=== PATIENT | female | born 1965 | race Caucasian/White ===

== ENCOUNTER → 2020-06-17 15:01 | Outpatient (CLI) | payer OTHER, SELFPAY ==
[2020-06-13 09:56] VITALS: BMI 24.3
--- NOTE | 2020-06-17 15:04 | EKG12_ITS ---
Test Reason : PRE PROC Blood Pressure : / mmHG Vent. Rate : 089 BPM Atrial Rate : 089 BPM P-R Int : 140 ms QRS Dur : 116 ms QT Int : 394 ms P-R-T Axes : 055 -58 045 degrees QTc Int : 479 ms Normal sinus rhythm Right bundle branch block Left anterior fascicular block Bifascicular block Abnormal ECG Confirmed by JERAMIE QUILES, JOVANA ([id number]), editor managing newspaper RAO FRY ([id number]) on 06/21/2020 2:36:47 PM Referred By: Roddy Arellano Confirmed By:JOVANA BOBO MD
== END ==
PROVIDERS: PCP Family Medicine; Referring Provider Surgery; Visit Provider Surgery
DX: R07.9 Chest pain, unspecified (principal)
CPT/HCPCS: 93005

== ENCOUNTER → 2020-06-21 09:46 | Outpatient (CLI) | payer OTHER, SELFPAY ==
[2020-06-13 09:33] VITALS: BMI 27.8
[2020-06-13 09:56] VITALS: BMI 24.3
--- NOTE | 2020-06-21 09:50 | NM_ITS ---
CLINICAL: 55-year-old female with reported history of dyspepsia. SEMI-SOLID PHASE 99m Tc SULFUR COLLOID GASTRIC EMPTYING STUDY COMPARISON: None available FINDINGS: The patient was administered approximately 1.0 mCi of 99m Tc sulfur colloid mixed with oatmeal and consumed per os. Image acquisitions in the anterior-posterior projections were obtained for 60 minutes. There is prompt visualization of the stomach. There is no gastroesophageal reflux identified. The T1/2 linear fit was calculated to be 28.52 minutes, (Normal: 12-56 minutes). NM/Gastric Emptying Study IMPRESSION: 1. NORMAL 99m Tc sulfur colloid semi-solid phase (oatmeal) gastric emptying imaging examination. A. There is normal and preserved semi-solid phase gastric emptying compared to normal controls. (Mirtha et al, J Nucl Med Tech 38: 186, 2010). Electronically Signed: Aleksandr Chamberlain DO at 8:08 EDT Tel , Service support ,
== END ==
PROVIDERS: PCP Family Medicine; Referring Provider Surgery; Visit Provider Surgery
DX: R10.9 Unspecified abdominal pain (principal)
CPT/HCPCS: 78264; A9541

== ENCOUNTER 2020-06-22 14:53 | Observation (INO) | payer OTHER, SELFPAY ==
[2020-06-13 09:56] VITALS: BMI 24.3
[2020-06-22 14:58] VITALS: BP 128/100; PULSE 108; RESP 22; TEMP 36.8; O2SAT 99; BMI 28.1
--- NOTE | 2020-06-22 15:09 | EKG12_ITS ---
Test Reason : Blood Pressure : / mmHG Vent. Rate : 105 BPM Atrial Rate : 105 BPM P-R Int : 140 ms QRS Dur : 116 ms QT Int : 392 ms P-R-T Axes : 052 -55 048 degrees QTc Int : 518 ms Sinus tachycardia Incomplete right bundle branch block Left anterior fascicular block Abnormal ECG Confirmed by EDGARDO QUILES, KOSTA ([id number]), electronic news gathering editor KEYONNA HOANG ([id number]) on 06/24/2020 1:52:09 PM Referred By: FILEMON Confirmed By:INDIO REYNOSO MD
--- NOTE | 2020-06-22 15:13 | ED.VISSUMM ---
- ER Visit Summary Date of Service: 06/22/20 Chief Complaint: Chest pain History of Present Illness: The patient is a 55 F with chest pain that started at work just prior to arrival. It started while seated. It is retrosternal and radiates to her right lower chest. Associated with shortness of breath and nausea. She is planning to undergo EGD, but the surgeon did not feel that this was reflux. She had a stress test in 2016 which was normal. History of high cholesterol. Non-smoker. No history of blood clots. Physical Examination: Afebrile and vital signs unremarkable except for heart rate of 108 and a respiratory rate of 22. Appears somewhat anxious but no acute distress. Heart tachycardic but regular. Lungs clear. Skin normal in color without diaphoresis or pallor. Calf soft and supple. Test Results: EKG, labs, chest x-ray pending. Emergency Department Course and Treatment: Patient placed on a monitor. Treated with aspirin while awaiting results. White count 12.9, platelets 45. Chemistry panel normal. Troponin negative. D-dimer negative. Chest x-ray is pending but appears to be unremarkable. EKG showed sinus rhythm at a rate of 105 with a right bundle branch block pattern and a left anterior fascicular block pattern. Patient had some shortness of breath when she used the restroom. Repeat EKG was unremarkable. She had normal vitals and oxygen saturations. Given her history and risk factors, the patient will be admitted for further evaluation and care. She does not have known COVID-19 exposure, and does not report any of the typical COVID-19 symptoms. Patient was accepted by Dr. Renee. Treatment Plan: As above Disposition: PCU observation Impression: Chest pain, hyperlipidemia This note was generated with [employer] software. It may contain incorrect words, spelling, and punctuation that were not noted in review of the chart prior to signing ED Disposition - Plan for ED Patient: Referrals: Partha García MD [Primary Care Provider] -
[2020-06-22] MEDS: 0.9% Normal Saline 1,000 ML 1000 ML IV (15:15)
--- NOTE | 2020-06-22 15:15 | RAD_ITS ---
STUDY: X-RAY CHEST REASON FOR EXAM: Female, 55 years old. CHEST PAIN, JAW PAIN, PAIN DOWN RT ARM TECHNIQUE: Single frontal view of the chest. COMPARISON: 07/01/2016 FINDINGS: 2 Intraspinal electrodes terminate in the mid thoracic spine. There appear to be new electrodes compared with the previous exam. The lungs are clear and expanded. There is no demonstrated pleural abnormality. Normal size heart. Normal mediastinum and nithya. Normal visualized pulmonary arteries. Normal visualized aortic arch and descending thoracic aorta. Normal visualized thoracic spine. Normal visualized ribs, clavicles, and shoulders. There is no demonstrated abnormality of the visualized soft tissue structures of the upper abdomen. RAD/Chest 1 View (Portable) IMPRESSION: Normal x-ray examination of the chest. Electronically Signed: Thomas Johnston MD at 17:08 EDT , Service support ,
[2020-06-22 15:24] LABS: Absolute Lymphocyte Count 4.15 X10^3/uL (0.83-4.51); Absolute Neutrophil Count 7.8 X10^3/uL (2.0-7.7); Basophil# 0.04 X10^3/uL; Basophil% 0.3 % (0-1); Eosinophil# 0.14 X10^3/uL; Eosinophils% 1.1 % (0-5); Hematocrit 42.9 % (37-47); Hemoglobin 14.4 g/dL (12.0-15.0); Lymphocyte # 4.15 X10^3/ul (4.0); Lymphocyte % 32.3 % (19-41); Mean Corp Hgb Conc 33.6 g/dL (32-36); Mean Corpuscular Hgb 29.3 pg (27.0-32.0); Mean Corpuscular Volume 87.4 fL (81-99); Mean Platelet Vol. 9.8 fl (6.2-12.0); Monocyte# 0.66 X10^3/uL; Monocyte% 5.1 % (0-10); NRBC Flagged by Analyzer 0 % (0-5); Neutrophil # 7.82 X10^3/uL (2.7-7.7); Neutrophil % 60.9 % (47-70); Platelet Count 485 K/mm3 (150-450); RBC Distribution Width CV 11.7 % (11.6-14.6); RBC Distribution Width SD 37.4 fl (35.1-43.9); Red Blood Count 4.91 M/mm3 (4.2-5.4); White Blood Count 12.9 K/mm3 (4.4-11.0)
[2020-06-22 15:34] LABS: D-Dimer Quantitative (DVT/PE) <= 0.27 FEU/ug/m (0.27-0.49)
[2020-06-22 15:41] LABS: Anion Gap 6 (5-15); BUN 13 mg/dL (7-18); BUN/Creat Ratio 15.8 RATIO (10-20); Calcium,Total 9.6 mg/dL (8.5-10.1); Chloride 106 mmol/L (98-107); Creatinine, Serum 0.82 mg/dL (0.55-1.02); EST Glomerular Filtration Rate 77 mL/min (>60); Est Glom Filt Rate - Afr Amer 94 mL/min (>60); Estimated Creatinine Clearance 62.75 ml/min; Glucose 97 mg/dL (74-106); Potassium 3.8 mmol/L (3.5-5.1); Sodium Level 137 mmol/L (136-145)
[2020-06-22 16:51] VITALS: BP 145/95; BP 145/96; PULSE 89; RESP 14; TEMP 37; O2SAT 98
[2020-06-22 17:10] VITALS: BMI 27.0
[2020-06-22 17:14] VITALS: BP 119/82; PULSE 89; RESP 18; TEMP 36.7; O2SAT 99
--- NOTE | 2020-06-22 17:20 | EKG12_ITS ---
Test Reason : C.P. ADMIT Blood Pressure : / mmHG Vent. Rate : 088 BPM Atrial Rate : 088 BPM P-R Int : 148 ms QRS Dur : 114 ms QT Int : 412 ms P-R-T Axes : 038 -44 028 degrees QTc Int : 498 ms Normal sinus rhythm Left axis deviation Abnormal ECG When compared with ECG of 22-JUN-2020 16:37, MANUAL COMPARISON REQUIRED, DATA IS UNCONFIRMED Confirmed by JERAMIE QUILES, JOVANA ([id number]), photographic editor RAO FRY ([id number]) on 06/27/2020 4:00:35 PM Referred By: JOSÉ MIGUEL Confirmed By:JOVANA BOBO MD
[2020-06-22 17:25] VITALS: BMI 27.0
--- NOTE | 2020-06-22 17:50 | PCM.HP.STD ---
Problem List (1) Chest pain Status: Acute Qualifiers: Chest pain type: precordial pain Qualified Code(s): R07.2 - Precordial pain History of Present Illness Date of Admission: 06/22/20 Chief Complaint: Precordial chest pain The patient is a 55 year old F who was seen in the emergency room at [facility] with a chief complaint of chest pain which she describes as sharp in nature located near her right breast area in the precordial area of her chest. She states that the pain went into her right shoulder and down her right arm today and she had some jaw pain also. Patient has been having episodes of similar pain x2 months, she states she has sometimes 3 episodes a day, the chest pain lasts usually for only a few seconds (10 seconds) at a time and is not triggered by anything in particular. She states that sometimes she feels short of breath and feels like she cannot swallow at times during these episodes. Patient had a stress test done 2015 which she says was normal. Work-up in the emergency room included an EKG which revealed a normal sinus rhythm with an incomplete right bundle branch block and left anterior hemiblock. Patient's chest x-ray was unremarkable, white blood cell count was elevated at 12.9, d-dimer was lower than 0.27, and chemistry panel was unremarkable. Patient's troponin was normal. Patient was placed in observation status on PCU, enzymes will be cycled, CBC will be repeated tomorrow, patient understands that we do not perform stress tests on Sundays and she will need to stay until Wednesday if she wants to have a stress test performed. Past Medical History Past Medical History (Chronic Problems): Chronic Problems (Last Updated 06/22/20 @ 18:[address] Gabriel Renee DO) Gastroesophageal reflux disease (Chronic) Positional vertigo (Chronic) Medical History: Medical History (Last Updated 06/22/20 @ 18:[address] Gabriel Renee DO) Gastroesophageal reflux disease (Chronic) K21.9 Positional vertigo (Chronic) H81.10 Anxiety and depression F41.9, F32.9 Back problem M53.9 Diarrhea R19.7 GERD (gastroesophageal reflux disease) K21.9 Hyperlipidemia E78.5 Lumbar disc disease M51.9 Narcolepsy G47.419 Pyloric stenosis K31.1 Allergies NSAIDS (Non-Steroidal Anti-Inflamma Adverse Reaction (Verified 06/22/20 15:02) Nausea Home Medications: Ambulatory Orders Medication Instructions Recorded cycloBENZAPRine HCl [Flexeril] 5 mg PO 4X/DAY PRN 08/22/13 Gabapentin 1,200 mg PO TID 04/17/14 traMADol [Ultram] 50 - 100 mg PO Q6H PRN PRN 07/01/16 Famotidine [Pepcid] 20 mg PO BID #28 tab 09/09/16 atorvastatin 40 mg tablet 40 mg PO QHS 06/13/20 omeprazole 20 mg capsule,delayed 20 mg PO DAILY 06/13/20 release Ergocalciferol [Vitamin D] 50,000 units PO QWEEK 06/22/20 Surgical History: Surgical History (Last Updated 06/13/20 @ 09:39 by Ashlee Velez) History of appendectomy Z90.49 History of back surgery Z98.890 History of bilateral carpal tunnel release Z98.890 History of bladder repair surgery Z98.890 History of cholecystectomy Z90.49 History of colectomy Z90.49 History of colonoscopy Onset Date: ~2014 Z98.0 History of esophagogastroduodenoscopy (EGD) Onset Date: ~2014 Z98.890 History of hysterectomy with unilateral oophorectomy Z90.710, Z90.721 history of spinal stimulator Surgical History: appendectomy, cholecystectomy, hysterectomy, - - back surgeries, perf bowel,spinal cord stimulator. 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 Review of Systems Constitutional: Denies: Anorexia, Chills, Fever, Night Sweats, Malaise, Weakness, Weight Change, Fatigue Eyes: Denies: Cataracts, Conjunctivae Inflammation, Double vision, Drainage HEENT: Denies: Difficulty Swallowing, Dysphasia, Ear Pain, Eye Pain, Hearing Changes, Nasal bleeding, Nasal Congestion, Post Nasal Drip Cardiovascular: Reports: Chest Pain. Denies: Claudication, Chest Pressure, Chest Tightness, Edema, Heaviness, Orthopnea, Palpitations, Paroxysmal Noc. Dyspnea Respiratory: Denies: Cough, Hemoptysis, Pleuritic Pain, Shortness of Breath, Shortness of breath at rest, Shortness of breath upon exertion, Sputum production, Wheezing Gastrointestinal: Denies: Abdominal Pain, Constipation, Diarrhea, Hematemesis, Hematochezia, Nausea, Melena, Vomiting Genitourinary: Denies: Dysuria, Frequency, Hematuria, Hesitancy, Urgency Musculoskeletal: Reports: Back Pain - Chronic back pain. Denies: Hand Pain, Joint Pain, Joint stiffness, Joint swelling, Joint Tenderness, Leg Pain Skin: Denies: Dryness, Jaundice, Pruritis, Rash Neurological: Denies: Blurred vision, Double vision, Change in Speech, Slurred speech, Difficulty swallowing, Focal weakness, Headaches, Incoordination, Numbness, Tingling Psychiatric: Denies: Anxiety, Depression, Homicidal Ideations, Suicidal Ideations Endocrine: Denies: Change in Body Habitus, Heat/ Cold Intolerance, Polydipsia, Polyuria Hematologic/ Lymphatic: Denies: Adenopathy, Anemia, Easy Bruising, Easy Bleeding, Petechiae, Purpura VTE Information - Inpt Only VTE Present on Admission: No VTE Mechan Device Prophylaxis: None VTE Pharm Prophylaxis ordered?: No Reason prophylaxis not ordered:: Treatment Not Indicated - Physical Exam Vitals/I&O's: Vital Signs Temp Pulse Resp BP Pulse Ox 98.1 F 89 18 119/82 H 99 06/22/20 17:14 06/22/20 17:14 06/22/20 17:14 06/22/20 17:14 06/22/20 17:14 Oxygen Delivery Method Room Air Weight: 67 kg Body Mass Index (BMI) 27.0 Intake and Output for Last 24 Hours 06/20/20 06/21/20 06/22/20 23:59 23:59 23:59 Intake Total 1000 / 1000 Balance 1000 / 1000 General: Alert, Oriented x3, Cooperative, No apparent distress, Well developed, Well nourished HEENT: Atraumatic, PERRLA, EOMI, Normocephalic Oral: Moist Mucosa Neck: Supple, No JVD, Trachea Midline, Thyroid Normal Size and Texture Lungs: Clear to auscultation, Normal air movement, No rhonchi, No wheeze, No rales Cardiovascular: Regular rate, Regular Rhythm, Normal S1, Normal S2, No murmurs, PMI Normal, No rub noted, No Gallop Abdomen: Bowel Sounds Present, Soft, Non Tender, Non-Distended, No hernias noted Extremities: No clubbing, No cyanosis, No edema, Capillary Refill Less than 3 Seconds Skin: No rashes, No breakdown Musculoskeletal: No Tenderness to Palpation of Joints or Extremities Neurological: Cranial nerves II-XII grossly intact, Neuro grossly intact, Sensory exam intact to light touch and pain, Coordination normal Psych/Mental Status: Normal Affect, Appropriate, Alert and oriented to time, place, person, mood and affect Laboratory Results 06/22/20 15:00: WBC 12.9 H, RBC 4.91, Hgb 14.4, Hct 42.9, MCV 87.4, MCH 29.3, MCHC 33.6, RDW Std Deviation 37.4, RDW Coeff of Barb 11.7, Plt Count 485 H, MPV 9.8, Immature Gran % (Auto) 0.300, Neut % (Auto) 60.9, Lymph % (Auto) 32.3, [place] % (Auto) 5.1, Eos % (Auto) 1.1, Baso % (Auto) 0.3, Absolute Neuts (auto) 7.8 H, Absolute Lymphs (auto) 4.15, Nucleated RBC % 0 06/22/20 15:00: D-Dimer Quant (PE/DVT) <= 0.27 06/22/20 15:00: Sodium 137, Potassium 3.8, Chloride 106, Carbon Dioxide 25.0, Anion Gap 6, BUN 13, Creatinine 0.82, Estim Creat Clear Calc 62.75, Est GFR (MDRD) Af Amer 94, Est GFR (MDRD) Non-Af 77, BUN/Creatinine Ratio 15.8, Glucose 97, Calcium 9.6, Troponin I < 0.015 Current Medications Acetaminophen (Tylenol) 650 mg PO Q6H PRN PRN PRN Reason: Pain Score 1-10/Temp > 100.7 F Atorvastatin Calcium (Lipitor) 40 mg PO QHS BLAKE Cyclobenzaprine HCl (Flexeril) 5 mg PO 4X/DAY PRN PRN Reason: Pain Score 1-10/10 Famotidine (Pepcid) 20 mg PO BID BLAKE Gabapentin (Neurontin) 1,200 mg PO TIDCM BLAKE Sodium Chloride () 500 mls @ 15 mls/hr IV PRN PRN PRN Reason: Blood Transfusion Sodium Chloride () 250 mls @ 15 mls/hr IV .[id number] PRN PRN Reason: Saline Flush Sodium Chloride () 250 mls @ 15 mls/hr IV .[id number] PRN PRN Reason: Additional IVPB Infusion Morphine Sulfate () 4 mg IV Q3H PRN PRN PRN Reason: Pain Score 6-10/10 Pantoprazole Sodium (Protonix) 20 mg PO DAILY BLAKE Sodium Chloride () 10 - 40 ml IV UD PRN PRN Reason: SALINE FLUSH Tramadol HCl (Ultram) 50 - 100 mg PO Q6H PRN PRN PRN Reason: Pain Score 1-10/10 Assessment/Plan All Active Problems (Last Updated 06/22/20 @ 18:[address] Gabriel Renee, DO) Chest pain (Acute) #1 precordial chest pain-atypical for cardiac pain, patient was put into observation status on PCU, serial isoenzymes will be obtained, if these are negative, patient will undergo a stress test-either while in the hospital or as an outpatient. #2 leukocytosis-etiology unclear #3 chronic pain syndrome due to degenerative joint disease of the lumbar spine #4 GERD OBSV E&M: 90076 Initial observation care L3
[2020-06-22 18:01] VITALS: PULSE 91
--- NOTE | 2020-06-22 18:02 | EKG12_ITS ---
Test Reason : Blood Pressure : / mmHG Vent. Rate : 085 BPM Atrial Rate : 085 BPM P-R Int : 144 ms QRS Dur : 112 ms QT Int : 412 ms P-R-T Axes : 035 -45 022 degrees QTc Int : 490 ms Normal sinus rhythm Incomplete right bundle branch block Left anterior fascicular block Prolonged QT Abnormal ECG Confirmed by EDGARDO QUILES, KOSTA ([id number]), desk editor KEYONNA HOANG ([id number]) on 06/24/2020 1:52:31 PM Referred By: FILEMON Confirmed By:INDIO REYNOSO MD
[2020-06-22 18:49] VITALS: PULSE 87
[2020-06-22] MEDS: Gabapentin 600 MG Tablet 1200 MG PO (18:49)
[2020-06-22] MEDS: traMADol 50 MG Tablet PO (18:53)
[2020-06-22 21:33] VITALS: BP 122/75; PULSE 87; RESP 15; TEMP 36.9; O2SAT 97
[2020-06-22] MEDS: Atorvastatin Calcium 40 MG Tablet PO (21:37)
[2020-06-22] MEDS: Acetaminophen 325 MG Tablet 650 MG PO (21:37)
[2020-06-22] MEDS: Famotidine 20 MG Tablet PO (21:37)
[2020-06-22] MEDS: cycloBENZAPRine HCl 10 MG Tablet 5 MG PO (23:43)
[2020-06-23 03:01] VITALS: PULSE 76
[2020-06-23 03:35] VITALS: BP 95/66; PULSE 82; RESP 17; TEMP 36.8; O2SAT 96
[2020-06-23 06:21] LABS: Absolute Lymphocyte Count 3.27 X10^3/uL (0.83-4.51); Absolute Neutrophil Count 4.5 X10^3/uL (2.0-7.7); Basophil# 0.04 X10^3/uL; Basophil% 0.5 % (0-1); Eosinophil# 0.15 X10^3/uL; Eosinophils% 1.8 % (0-5); Hematocrit 37.1 % (37-47); Hemoglobin 12.2 g/dL (12.0-15.0); Lymphocyte # 3.27 X10^3/ul (4.0); Lymphocyte % 38.8 % (19-41); Mean Corp Hgb Conc 32.9 g/dL (32-36); Mean Corpuscular Hgb 29.6 pg (27.0-32.0); Mean Platelet Vol. 9.8 fl (6.2-12.0); Monocyte# 0.47 X10^3/uL; Monocyte% 5.6 % (0-10); NRBC Flagged by Analyzer 0 % (0-5); Neutrophil # 4.48 X10^3/uL (2.7-7.7); Neutrophil % 53.1 % (47-70); Platelet Count 319 K/mm3 (150-450); RBC Distribution Width CV 12.1 % (11.6-14.6); RBC Distribution Width SD 39.4 fl (35.1-43.9); Red Blood Count 4.12 M/mm3 (4.2-5.4); White Blood Count 8.4 K/mm3 (4.4-11.0)
[2020-06-23 06:47] VITALS: PULSE 78
[2020-06-23] MEDS: Famotidine 20 MG Tablet PO (07:31)
[2020-06-23] MEDS: Gabapentin 600 MG Tablet 1200 MG PO (07:31)
[2020-06-23] MEDS: Pantoprazole Sodium 20 MG Tablet PO (07:31)
[2020-06-23 09:35] VITALS: BP 110/79; PULSE 87; RESP 18; TEMP 36.6; O2SAT 96
[2020-06-23] MEDS: traMADol 50 MG Tablet PO (10:04)
--- NOTE | 2020-06-23 10:40 | DCINST_ITS ---
You will use the following diet at home:: No restrictions Your food should be the consistency of: Regular Your liquids should be the consistency of: Regular/Thin Discharge Activity: Return to Normal Activity Allergies/Adverse Reactions: Allergies NSAIDS (Non-Steroidal Anti-Inflamma Adverse Reaction (Verified 06/22/20 15:02) Nausea Medications to take at Discharge cycloBENZAPRine HCl [Flexeril] 5 mg PO 4X/DAY PRN 08/22/13 Gabapentin 1,200 mg PO TID 04/17/14 traMADol [Ultram] 50 - 100 mg PO Q6H PRN PRN 07/01/16 Famotidine [Pepcid] 20 mg PO BID #28 tab 09/09/16 atorvastatin 40 mg tablet 40 mg PO QHS 06/13/20 omeprazole 20 mg capsule,delayed release 20 mg PO DAILY 06/13/20 Ergocalciferol [Vitamin D] 50,000 units PO QWEEK 06/22/20 Acetaminophen [Tylenol Tablet] 650 mg PO Q6H PRN PRN tab 06/23/20 Primary Care Physician: Partha García MD [Primary Care Provider] - Please follow up with your Primary Care Physician in: IN 2 WEEKS-CONSIDER PHYSICAL THERAPY FOR THORACIC SPINE Test Results: Test results from this visit will be discussed in further detail at your follow- up appointment, if applicable.
--- NOTE | 2020-06-23 15:16 | DS.PCM_ITS ---
Discharge Date and Diagnosis Date of Admission: 06/22/20 Date of Discharge: 06/23/20 - Primary Discharge Diagnosis Acute Problems: #1 musculoskeletal chest pain #2 chronic pain syndrome due to degenerative disc disease of the lumbar spine #3 GERD #4 hyperlipidemia #5 degenerative disc disease of the lumbar spine #6 leukocytosis-etiology unclear - Secondary Discharge Diagnosis Chronic Problems: Chronic Problems (Last Updated 06/22/20 @ 18:[address] Gabriel Renee, DO) Gastroesophageal reflux disease (Chronic) Positional vertigo (Chronic) Hospital Course and Treatment Operations: None Procedures: None Summary of Care Provided: The patient is a 55 year old F who was seen in the emergency room at [facility] with a chief complaint of chest pain which was located in her right breast radiating up into her right shoulder and arm area. She had had the discomfort off and on for 2 months and had been referred to a general surgeon for an EGD but the general surgeon did not feel the patient warranted an EGD. Patient complained that she had some shortness of breath during these chest pain episodes and there was nothing in common with the chest discomfort and any activity as she had the chest discomfort at rest or when she was active. These episodes only lasted for a few seconds. Work-up in the emergency room included an EKG which showed an incomplete right bundle branch block and a left fascicular block but no evidence of ischemic changes. Patient's chest x-ray was unremarkable, patient's lab was unremarkable except for an elevation in her white blood cell count. Patient had no evidence of active infection. Patient was placed in observation status on PCU, serial cardiac enzymes were obtained a nd all these enzymes were negative. On 06/23/2020, patient was seen and examined: On examination she appeared in good health and spirits, she does not appear to be in any distress. Vital signs as documented. Skin warm and dry and without overt rashes. Neck without JVD, thyroid appears normal, trachea is midline, neck is supple. Lungs clear, normal air movement was noted. Heart exam notable for regular rhythm, normal sounds and absence of murmurs, rubs or gallops. Abdomen unremarkable and without evidence of organomegaly, masses, or abdominal aortic enlargement, bowel sounds are present in all 4 quadrants, no abdominal tenderness was noted. Extremities nonedematous, no cyanosis was noted, no clubbing was noted. Neuro: Cranial nerves II through XII are grossly intact, no focal motor deficits were noted, sensation to light touch and pinprick is intact, motor exam 5/5 throughout. Psych: Patient is alert and oriented x3, she does not appear anxious or depressed, she does not appear agitated. I had a long discussion with the patient on 06/23/2020, her chest pain was very atypical for cardiac pain and I told her that I felt that her pain was musculoskeletal in nature. I recommended physical therapy and I recommended that she follow-up with her physician in case her physician felt that she needed a stress test. Patient was discharged in stable condition on 06/23/2020. - Physical Exam Vitals/I&O's: Vital Signs Temp Pulse Resp BP Pulse Ox 97.9 F 87 18 110/79 96 06/23/20 09:35 06/23/20 09:35 06/23/20 09:35 06/23/20 09:35 06/23/20 09:35 Oxygen Delivery Method Room Air Weight: 67 kg Body Mass Index (BMI) 27.0 Intake and Output for Last 24 Hours 06/21/20 06/22/20 06/23/20 23:59 23:59 23:59 Intake Total 1200 / 1200 460 / 460 Output Total 0 / 0 Balance 1200 / 1200 460 / 460 Laboratory Results 06/22/20 15:00: WBC 12.9 H, RBC 4.91, Hgb 14.4, Hct 42.9, MCV 87.4, MCH 29.3, MCHC 33.6, RDW Std Deviation 37.4, RDW Coeff of Barb 11.7, Plt Count 485 H, MPV 9.8, Immature Gran % (Auto) 0.300, Neut % (Auto) 60.9, Lymph % (Auto) 32.3, [place] % (Auto) 5.1, Eos % (Auto) 1.1, Baso % (Auto) 0.3, Absolute Neuts (auto) 7.8 H, Absolute Lymphs (auto) 4.15, Nucleated RBC % 0 06/22/20 15:00: D-Dimer Quant (PE/DVT) <= 0.27 06/22/20 15:00: Sodium 137, Potassium 3.8, Chloride 106, Carbon Dioxide 25.0, Anion Gap 6, BUN 13, Creatinine 0.82, Estim Creat Clear Calc 62.75, Est GFR (MDRD) Af Amer 94, Est GFR (MDRD) Non-Af 77, BUN/Creatinine Ratio 15.8, Glucose 97, Calcium 9.6, Troponin I < 0.015 06/22/20 18:15: Troponin I < 0.015 06/22/20 20:50: Troponin I < 0.015 06/23/20 05:15: WBC 8.4, RBC 4.12 L, Hgb 12.2, Hct 37.1, MCV 90.0, MCH 29.6, MCHC 32.9, RDW Std Deviation 39.4, RDW Coeff of Barb 12.1, Plt Count 319, MPV 9.8, Immature Gran % (Auto) 0.200, Neut % (Auto) 53.1, Lymph % (Auto) 38.8, [place] % (Auto) 5.6, Eos % (Auto) 1.8, Baso % (Auto) 0.5, Absolute Neuts (auto) 4.5, Absolute Lymphs (auto) 3.27, Nucleated RBC % 0 Discharge Activity: Return to Normal Activity Home Medications: Medications to take at Discharge cycloBENZAPRine HCl [Flexeril] 5 mg PO 4X/DAY PRN 08/22/13 Gabapentin 1,200 mg PO TID 04/17/14 traMADol [Ultram] 50 - 100 mg PO Q6H PRN PRN 07/01/16 Famotidine [Pepcid] 20 mg PO BID #28 tab 09/09/16 atorvastatin 40 mg tablet 40 mg PO QHS 06/13/20 omeprazole 20 mg capsule,delayed release 20 mg PO DAILY 06/13/20 Ergocalciferol [Vitamin D] 50,000 units PO QWEEK 06/22/20 Acetaminophen [Tylenol Tablet] 650 mg PO Q6H PRN PRN tab 06/23/20 Primary Care Physician: Partha García MD [Primary Care Provider] - Please follow up with your Primary Care Physician in: IN 2 WEEKS-CONSIDER PHYSICAL THERAPY FOR THORACIC SPINE Disposition: Home Minutes spent on discharge:: 30 Patient Condition:: Stable Medical Necessity - Tobacco Use Smoking Status: Never smoker Tobacco Use: Non-smoker Meaningful Use Info Meaningful Use Diagnoses (Choose all that apply): None applicable OBSV E&M: 05907 Observation care discharge
== END 2020-06-23 10:41 | disposition home or self-care (01) ==
LOC: ED 15:41 → PCU 16:51
PROVIDERS: Admitting Provider Internal Medicine; Emergency Provider Emergency Medicine; PCP Family Medicine; Visit Provider Internal Medicine
DX: R07.89 Other chest pain (principal); R06.02 Shortness of breath; R11.0 Nausea; I45.2 Bifascicular block; E78.5 Hyperlipidemia, unspecified; K21.9 Gastro-esophageal reflux disease without esophagitis; H81.10 Benign paroxysmal vertigo, unspecified ear; G47.419 Narcolepsy without cataplexy; D72.829 Elevated white blood cell count, unspecified; G89.4 Chronic pain syndrome; M47.896 Other spondylosis, lumbar region; Z79.899 Other long term (current) drug therapy
CPT/HCPCS: 36415; 71045; 80048; 84484; 85025; 85379; 93005; 96360; 96361; 99218; 99285; G0378

== ENCOUNTER → 2020-07-05 07:00 | Outpatient (CLI) | payer OTHER, SELFPAY ==
[2020-06-13 09:56] VITALS: BMI 24.3
== END ==
PROVIDERS: PCP Family Medicine; Referring Provider Family Medicine; Visit Provider Surgery
DX: Z01.812 Encounter for preprocedural laboratory examination (principal)
CPT/HCPCS: 87635; 94799; C9803; U0003

== ENCOUNTER → 2020-07-16 06:23 | Outpatient (CLI) | payer OTHER, SELFPAY ==
[2020-06-27 10:58] VITALS: BMI 26.8
--- NOTE | 2020-07-16 06:25 | ECHOCS_ITS ---
Reason For Study: CP Procedure This was a 2D Doppler, Color Flow transthoracic echocardiogram. The study was technically difficult. Contrast injection was performed. Definity images taken with patient supine. Exam performed in department. Left Ventricle Normal LV size. Left ventricular systolic function is normal. The estimated ejection fraction is 65 %. Transmitral doppler flow suggestive of impaired relaxation of left ventricle. No regional wall motion abnormalities noted. Right Ventricle Normal RV size. Normal systolic function. Atria Normal left atrium. Normal right atrium. No doppler evidence for ASD. Bubble contrast study negative for right to left interatrial shunt. Mitral Valve There is no mitral annular calcification. Normal mitral valve. Trivial mitral valve insufficiency. Tricuspid Valve Normal tricuspid valve. Trivial tricuspid valve insufficiency. Unable to estimate RV systolic pressure/pulmonary artery pressure due to technically difficult study. Aortic Valve Trisinus/trileaflet aortic valve. Normal aortic valve. Pulmonic Valve The pulmonic valve is not well visualized. Great Vessels The aortic root is not well visualized. Pericardium/Pleural No pericardial effusion. Medication 22 gauge I.V. with prn adaptor inserted into right arm. Diluted definity 3ml given slow IV push to enhance endocardial definition. Performed a rapid injection of agitated mix of 9 cc saline and 1cc air to assess for atrial septal defect. MMode/2D Measurements & Calculations LVIDd: 3.6 cm IVSd: 1.0 cm LA dimension: 2.7 cm LVIDs: 2.6 cm LVPWd: 1.1 cm FS: 28.3 % LAV(MOD-bp): 22.0 ml LA A4 area: 10.3 cm2 RA A4 area: 10.7 cm2 LAV(MOD-bp) Indexed: 13.1 ml/m2 LAV(MOD-sp2): 20.4 ml LAV(MOD-sp4): 23.6 ml Time Measurements MV dec time: 0.27 sec Doppler Measurements & Calculations MV E max kelvin: 64.7 cm/sec Lat Peak E' Kelvin: 10.4 cm/sec Med Peak E' Kelvin: 8.4 cm/sec MV A max kelvin: 73.6 cm/sec E/E' lat: 6.2 E/E' med: 7.7 MV E/A: 0.88 MV V2 max: 76.4 cm/sec MV P1/2t max kelvin: 69.2 cm/sec Ao V2 max: 97.5 cm/sec MV max P.3 mmHg MV P1/2t: 78.5 msec Ao max P.8 mmHg MV V2 mean: 49.8 cm/sec MV dec slope: 258.4 cm/sec2 MV mean P.1 mmHg MV V2 VTI: 17.0 cm MVA(P1/2t): 2.8 cm2 LV V1 max: 85.8 cm/sec PA V2 max: 98.2 cm/sec LV V1 max P.9 mmHg Interpretation Summary The study was technically difficult. Contrast injection was performed. Left ventricular systolic function is normal. The estimated ejection fraction is 65 %. Trivial mitral valve insufficiency. Trivial tricuspid valve insufficiency. Unable to estimate RV systolic pressure/pulmonary artery pressure due to technically difficult study. Transmitral doppler flow suggestive of impaired relaxation of left ventricle Bubble contrast study negative for right to left interatrial shunt. Ordering Physician: Kai Diaz Referring Physician: Partha García Performed By: Jose Alfredo Hernandes RCS
--- NOTE | 2020-07-16 13:13 | STRESSREP ---
Stress Test Report Date: 07-16-2020 Procedure: Pharmacologic stress nuclear imaging study Indications: Chest pain; shortness of breath/dyspnea; preoperative cardiovascular evaluation Consent: Per the patient Procedure: The patient underwent pharmacologic (Regadenoson) evaluation with a peak heart rate of 113 beats per minute (67 %predicted maximal heart rate) and a peak blood pressure of 130/88 mmHg. The baseline ECG demonstrated normal sinus rhythm; right bundle branch block pattern. The peak pharmacologic ECG demonstrated no obvious ECG changes. There were no cardiac dysrhythmias pretest, during pharmacologic infusion, or recovery. There was no complaint of chest discomfort during pharmacologic infusion or recovery. The examination was discontinued secondary to completion of protocol. Impression: 1. Pharmacologic (Regadenoson) evaluation 2. Peak pharmacologic ECG with continued right bundle branch block pattern with no obvious ECG changes. 3. There were no cardiac dysrhythmias pretest, during pharmacologic infusion, or recovery. 4. Nuclear images pending Myocardial perfusion imaging study: Technique: The patient was injected with 11.7 millicuries of technetium 99m Cardiolite and subsequently rest SPECT Cardiolite nuclear imaging was obtained in the horizontal long, vertical long, and short axis views. The patient underwent pharmacologic (Regadenoson) evaluation with a peak heart rate of 113 beats per minute (67 % percent predicted maximal heart rate) and a peak blood pressure of 130/88 mmHg. The patient was injected with 33.6 millicuries of technetium 99m Cardiolite and subsequently stress SPECT Cardiolite nuclear imaging was obtained in the horizontal long, vertical long, and short axis views. A gated Cardiolite study at peak stress was obtained. Interpretation: Rest and stress SPECT Cardiolite nuclear imaging status post realignment, normalization, and attenuation correction demonstrate relative uniform tracer uptake and myocardial perfusion appearing within normal limits. There is end systolic thickening and brightening. The gated Cardiolite study demonstrates myocardial thickening and inward wall motion. The reported LVEF is 82 %. Impression: 1. Rest and stress SPECT Cardiolite nuclear imaging demonstrate relative uniform tracer uptake and myocardial perfusion appearing within normal limits. 2. The gated Cardiolite study reports an LVEF of 82 %. This note was generated with [employer] software. It may contain incorrect words, spelling, and punctuation that were not noted in checking the note before signing.
== END ==
LOC: CVS 06:25
PROVIDERS: PCP Family Medicine; Referring Provider Internal Medicine Cardiovascular Disease; Visit Provider Internal Medicine Cardiovascular Disease
DX: Z01.810 Encounter for preprocedural cardiovascular examination (principal); R07.9 Chest pain, unspecified; R94.31 Abnormal electrocardiogram [ECG] [EKG]; R07.2 Precordial pain; R55 Syncope and collapse; E78.5 Hyperlipidemia, unspecified
CPT/HCPCS: 78452; 93017; 93306; A9500; Q9957; A4216; C8929; J2785

== ENCOUNTER 2020-08-27 06:36 | Day surgery (SDC) | payer OTHER, SELFPAY ==
[2020-06-27 10:58] VITALS: BMI 26.8
[2020-08-27] VITALS (8 sets, daily range): BP systolic 106–134; BP diastolic 62–78; PULSE 83–94; RESP 14–16; TEMP 36.6–36.9; O2SAT 98; BMI 27.5
--- NOTE | 2020-08-27 06:49 | HP.PCM_ITS ---
Problem List (1) Gastroesophageal reflux disease Status: Chronic History and Physical Date of Admission: 08/27/20 Intake Visit Reasons: EGD, CSCOPE Chief Complaint: GERD Child Care Attendant Required: No Is patient in pain?: No Allergies NSAIDS (Non-Steroidal Anti-Inflamma Adverse Reaction (Verified 06/13/20 09:34) Nausea Medications cycloBENZAPRine HCl [Flexeril] 5 mg PO 4X/DAY PRN 08/22/13 [History Confirmed 06/13/20] Gabapentin 1,200 mg PO TID 04/17/14 [History Confirmed 06/13/20] traMADol [Ultram] 50 - 100 mg PO Q6H PRN PRN 07/01/16 [History Confirmed 06/13/20] Diazepam [Valium] 2 mg PO BID PRN PRN #10 tab 07/02/16 [Rx Confirmed 06/13/20] Diazepam [Valium] 5 mg PO Q8 PRN #10 tab 09/09/16 [Rx Confirmed 06/13/20] Famotidine [Pepcid] 20 mg PO BID #28 tab 09/09/16 [Rx Confirmed 06/13/20] atorvastatin 40 mg tablet 40 mg PO QHS 06/13/20 [History Confirmed 06/13/20] omeprazole 20 mg capsule,delayed release 20 mg PO DAILY 06/13/20 [History Confirmed 06/13/20] Is last menstrual period known: No Post menopausal: Yes Patient : No PFSH Medical History (Updated 06/13/20 @ 09:[address] Roddy Arellano MD) Gastroesophageal reflux disease (Acute) Positional vertigo (Chronic) Anxiety and depression (Acute) Back problem (Acute) Diarrhea (Acute) GERD (gastroesophageal reflux disease) (Acute) Hyperlipidemia (Acute) Lumbar disc disease (Acute) Narcolepsy (Acute) Pyloric stenosis (Acute) Surgical History (Updated 06/13/20 @ 09:39 by Ashlee Velez) History of appendectomy (Acute) History of back surgery (Acute) History of bilateral carpal tunnel release (Acute) History of bladder repair surgery (Acute) History of cholecystectomy (Acute) History of colectomy (Acute) History of colonoscopy (Acute ~2014) History of esophagogastroduodenoscopy (EGD) (Acute ~2014) History of hysterectomy with unilateral oophorectomy (Acute) history of spinal stimulator (Acute) Family History (Updated 06/13/20 @ 09:38 by Ashlee Velez) Mother Breast cancer Diabetes Hypertension Social History (Updated 06/13/20 @ 09:[address] Roddy Arellano MD) Smoking Status: Never smoker HPI HPI HPI: RAFAEL RICHTER, is a 55 F who presents to the office today for surgical consultation for what is felt to be intractable gastroesophageal reflux disease. The patient is referred by Justyna Treviño CNP and a written copy my surgical consult recommendations will be returned to her as well as forwarded on to Dr. García. I have assisted the patient in the past and on February 08, 2015 performed a combined upper and lower endoscopy. Low-grade reflux esophagitis was identified. EG junction at 35 to 36 cm. Diffusely erythematous stomach. Normal duodenum. Small hiatal hernia. Although the patient carries a history of pyloric stenosis she is not particularly familiar with that term. She had a colonoscopy at that same setting that was unremarkable with follow-up colonoscopy at 10 years recommended. She is complaining of a high retrosternal chest discomfort. She takes omeprazole 20 mg daily on most days and occasionally will take it twice daily. In addition to that she sometimes have to add 20 mg of Pepcid. All of this is in treatment of a high retrosternal chest discomfort which she feels is reflux. Now she does describe however that she has hyperlipidemia and that there is difficulty in controlling her cholesterol level. She does not particularly describe chest discomfort with exertion. She does have back issues and had has had multiple back surgeries. She has problems with some fecal incontinence which is felt secondary to be due to potential nerve damage from her back issues. She has not had a gastric stress test. She thinks she may have very remotely had a gastric emptying study. She denies bright red blood per rectum or melena. Occasionally has some mucus. She is not a tobacco user. She has not had any weight loss. There is no family history of colon cancer It is of note however that dating back to October 17, 2008 she had a perforated right colon and pneumatosis intestinalis. She underwent an laparoscopic right colectomy. The pathology showed cecum and ascending colon with focal area of submucosal hemorrhage. Mild serosal acute inflammation. Reactive lymphoid aggregates. The ascending colon was dilated up to 11 cm. No obvious pe rforation was identified by the pathologist. Patient states that she spent 5 days in the ICU at that time. She does have an upper midline incision She is also previously had a cholecystectomy. HPI HPI HPI: RAFAEL RICHTER, is a 55 F who presents to the office today for ROS General General: No weight change, appetite, fatigue, colon cancer, breast cancer or weakness HEENT HEENT: No difficulty swallowing, eye injury, eye surgery, swollen glands or hoarseness Endo Endocrine: No thyroid disease, diabetes mellitus, thyroid cancer, Hair loss, heat intolerance or cold intolerance Musc Musculoskeletal: Yes back problems; no arthritis, rheumatoid arthritis, gout or joint pain Cardio Cardiovascular: No murmur, pacemaker, heart disease, atrial fibrillation, high blood pressure, heart attack, heart stent, palpitations, shortness of breat with exertion or chest pain Psych Psychiatric: Yes depression and anxiety; no hearing voices Resp Respiratory: No shortness of breath, No sleep apnea, No cough, No COPD, No asthma, No emphysema, No wheezing Gastro Gastrointestinal: No abdominal pain, No nausea or vomiting, Yes diarrhea, No constipation, No blood in stool, Yes acid reflux, No hemorrhoids, No ulcers, No gallbladder problem, No black,tarry stools Dirk Hematologic: No blood thinners, No blood disorders, No bleeding, No anemia, No blood clots Neuro Neurologic: No weakness Exam Const General: cooperative, healthy appearing, comfortable, no acute distress Nutritional Appearance: overweight Orientation: alert, awake, oriented x3 HENMT Head: normal to inspection Eyes General: appearance normal, both eyes and all related structures Resp Effort & Inspection: normal respiratory effort Auscultation: clear to auscultation bilaterally Cardio Rate: regular rate Rhythm: regular rhythm Heart Sounds: no murmurs GI Other: Soft, nontender, well-healed epigastric vertical midline incision, no hepatosplenomegaly, no gross incisional defect or hernia, no guarding or rebound, bowel sounds present and normal Musc Cervical Spine: normal cervical lordosis Skin General: no rashes or lesions noted Neuro Cognition: normal cognition Extrem General: no calf tenderness Psych Affect: normal affect Assessment & Plan Problems 1. Gastroesophageal reflux disease, esophagitis presence not specified K21.9 2. Other chest pain R07.89 Plan 55-year-old female with retrosternal chest pain. She attributes this to reflux disease. She is on proton pump inhibitor therapy with additional H2 russell therapy added. She carries a remote history of pyloric stenosis but on upper endoscopy in 2015 this was not identified. There is some concern that she might have bile reflux. She has had multiple back procedures. She has troubles with fecal incontinence. She may have autonomic nerve dysfunction to the stomach. She has previously been known to have a hiatal hernia. With all of this in mind it is not clear to me the etiology to her chest discomfort. She does have hyperlipidemia which she admits is difficult to control. She is on atorvastatin 40 mg daily. She has not had a stress test. I recommend that we obtain a stress echocardiogram. This would be an evaluation of her retrosternal chest pain. I recommend to her gastric emptying study. She may indeed have gastric motility problems aggravating her gastritis and reflux symptoms. I recommend a esophagogastroduodenoscopy with pH probe placement. I have extensive discussed technique, benefit, risk, alternatives. She has had an opportunity to ask and have questions answered and we will schedule and proceed as noted. Subsequently I would recommend that she return to the office for further discussion. She might be a future candidate for esophageal manometry and possible gastric reflux surgery. If that were entertained great care would need to be taken because of her previous emergency right colectomy for perforation and potential for upper abdominal adhesions. She has had an opportunity to ask and have questions answered. I very much appreciate the kind opportunity of assisting with her surgical care. Cc: DANNY Bourne and Dr. Partha Arellano M.D., F.A.C.S. Patient's history and physical have been reviewed. Since her office visit she did have a echo stress test which was negative for acute ischemia. She also had a gastric emptying study that was normal. Review reveals back to 2014 she had an upper endoscopy which was not remarkable. She has a remote history of pyloric stenosis. She has gastroesophageal reflux disease with ongoing proton pump inhibitor requirements. She presents today for planned esophagogastroduodenoscopy with biopsy if indicated and Dahl pH probe placement. She is aware of technique, benefit, risk, alternatives. We will proceed as noted. Her COVID testing has been negative Roddy Arellano M.D., F.A.C.S. Procedure Criteria Procedure Type: Elective COVID Risk Discussion: The surgeon/proceduralist and patient have discussed in detail the risk of exposure to and/or potential harm posed by the COVID-19 virus with having a surgery/procedure at this time versus the risk of delaying the surgery/procedure. It is not possible to know either the risk of delaying the surgery or procedure or chance of getting an infection with perfect accuracy, but a joint decision was made between the patient and the surgeon/proceduralist to proceed at this time with the scheduled surgery/procedure as indicated on the consent form.
[2020-08-27] MEDS: Lactated Ringers 1,000 ML 100 ML IV (07:26)
--- NOTE | 2020-08-27 07:45 | EGD_PTH ---
PATIENT: RAFAEL RICHTER LOC: EN U#:[id number] AGE/SX: 55/F ROOM: RE08/27/[address]: Dr. Roddy Arellano MD : 1965 BED: DIS: 08/27/2020 SPEC #: [id number] RECD: 08/27/20 08:37 STATUS: KINGSLEY ANG #: [id number] LILLY: 08/27/20 07:[address]: Roddy Arellano DEPT: SURGICAL PATHOLOGY RECD BY: Jon Kent ENTERED: 08/27/20 08:46 SP TYPE: EGD BIOPSY OT DR: Dr. Partha García MD Tissues: A - Gastric mucous membrane Esophagus, NOS Procedures: Special Stain Group I Surgery Specimen Level IV GMS Stain (control) HEADER OPERATION: EGD - PH probe (MAC) PRE-OP DIAGNOSIS: GERD TISSUE SUBMITTED: A - Antrum biopsy for histo and H. pylori, B - Distal esophagus biopsy MICROSCOPIC DIAGNOSIS A. Gastric antrum, biopsy: Chronic gastritis. See comment. B. Distal esophagus, biopsy: Focal acute esophagitis. Negative for fungal organisms. Focal changes of reflux. See comment. AM:etienne 08/28/20 COMMENT A. The results of immunohistochemistry for Helicobacter pylori will be reported separately ([id number]). B. GMS stain with matched control was used in the evaluation of this case. MICROSCOPIC DESCRIPTION Slides are reviewed. GROSS DESCRIPTION A - Received in fixative is one container labeled with the patient's name and designated antrum biopsy. The specimen consists of one irregular fragment of light martinez soft tissue that measures 0.5 x 0.2 x 0.1 cm. The specimen is totally submitted in one cassette. B - Received in fixative is one container labeled with the patient's name and designated distal esophagus. The specimen consists of multiple irregular fragments of light martinez soft tissue that in aggregate measure 1 x 0.5 x 0.1 cm. The specimen is totally submitted in one cassette. / AM:etienne 08/27/20 TC:2 CPT: 53004 x2, 69397
--- NOTE | 2020-08-27 07:45 | IMM_PTH ---
PATIENT: RAFAEL RICHTER LOC: EN U#:[id number] AGE/SX: 55/F ROOM: RE08/27/[address]: Dr. Roddy Arellano MD : 1965 BED: DIS: 08/27/2020 SPEC #: [id number] RECD: 08/27/20 09:37 STATUS: KINGSLEY REJon #: [id number] LILLY: 08/27/20 07:[address]: Roddy Arellano DEPT: IMMUNOHISTOCHEMISTRY RECD BY: Cecilia Baca ENTERED: 08/27/20 09:37 SP TYPE: IMMUNO OTHR DR: Dr. Partha García MD Tissues: A - Stomach, NOS Procedures: H Pylori (initial) PHYSICIAN & INSTITUTION [place] [id number] SPECIMEN INFORMATION: Tissue Source: A - Antrum biopsy Clinical Info: GERD Specimen Number: [id number] CPT code: 79400 METHODOLOGY: Deparaffinized sections of prefer/formalin-fixed tissue or PAP/DQ stained slides are incubated with monoclonal/polyclonal antibodies/oligonucleotide probes. Localization is made via biotin free immunoperoxidase method. Appropriate controls are performed and reacted as expected. Results on target cell population are indicated in the following table: RESULTS: ANTIBODY / CLONE RESULT Block A H Pylori (polyclonal) negative These tests were developed and their performance characteristics determined by Laboratory. They may not have been cleared or approved by the [place].S. Food and Drug Administration. The FDA has determined that such clearance or approval is not necessary. INTERPRETATION: A. Gastric antrum, biopsy: Negative for Helicobacter pylori organisms. AM:etienne 08/28/20
--- NOTE | 2020-08-27 08:07 | OP.EGD_ITS ---
Patient Name: Bridgett Mendiola Procedure Date: 08/27/2020 7:31 AM Date of : 1965 Age: 55 Procedure: Upper GI endoscopy Indications: Suspected gastro-esophageal reflux disease Providers: Roddy Arellano MD Referring MD: Partha García Medicines: See the Anesthesia note for documentation of the administered medications Complications: No immediate complications. Procedure: Pre-Anesthesia Assessment: - Prior to the procedure, a History and Physical was performed, and patient medications and allergies were reviewed. The patient's tolerance of previous anesthesia was also reviewed. The risks and benefits of the procedure and the sedation options and risks were discussed with the patient. All questions were answered, and informed consent was obtained. Prior Anticoagulants: The patient has taken no previous anticoagulant or antiplatelet agents. ASA Grade Assessment: II - A patient with mild systemic disease. After reviewing the risks and benefits, the patient was deemed in satisfactory condition to undergo the procedure. After obtaining informed consent, the endoscope was passed under direct vision. Throughout the procedure, the patient's blood pressure, pulse, and oxygen saturations were monitored continuously. The gastroscope was introduced through the mouth, and advanced to the second part of duodenum. The upper GI endoscopy was accomplished without difficulty. The patient tolerated the procedure well. Scope In: 7:50:07 AM Scope Out: 7:58:54 AM Total Procedure Duration Time 0 hours 8 minutes 47 seconds Findings: LA Grade A (one or more mucosal breaks less than 5 mm, not extending between tops of 2 mucosal folds) esophagitis with no bleeding was found 35 cm from the incisors. Biopsies were taken with a cold forceps for histology. A medium-sized hiatal hernia was present. Diffuse mildly erythematous mucosa without bleeding was found in the gastric antrum. Biopsies were taken with a cold forceps for histology. The examined duodenum was normal. The SCHWARTZ capsule with delivery system was introduced through the mouth and advanced into the esophagus, such that the SCHWARTZ pH capsule was positioned 29 cm from the incisors, which was 6 cm proximal to the GE junction. The SCHWARTZ pH capsule was then deployed and attached to the esophageal mucosa. The delivery system was then withdrawn. Endoscopy was utilized for probe placement and diagnostic evaluation. Impression: - LA Grade A reflux esophagitis. Biopsied. - Medium-sized hiatal hernia. - Erythematous mucosa in the antrum. Biopsied. - Normal examined duodenum. - The SCHWARTZ pH capsule was deployed. Recommendation: - Discharge patient to home. - Resume previous diet. - Continue present medications. - Return to my office in 1 week. Procedure Code(s): --- Professional --- 12639, Esophagogastroduodenoscopy, flexible, transoral; with biopsy, single or multiple 39227, Esophagus, gastroesophageal reflux test; with mucosal attached telemetry pH electrode placement, recording, analysis and interpretation Diagnosis Code(s): --- Professional --- K21.0, Gastro-esophageal reflux disease with esophagitis K44.9, Diaphragmatic hernia without obstruction or gangrene K31.89, Other diseases of stomach and duodenum CPT copyright 2017 [employer]. All rights reserved. The codes documented in this report are preliminary and upon radiator core tester review may be revised to meet current compliance requirements. Roddy Arellano MD 08/27/2020 8:07:25 AM This report has been signed electronically. Number of Addenda: 0 Note Initiated On: 08/27/2020 7:31 AM
--- NOTE | 2020-08-27 08:08 | OP.CCLET_ITS ---
08/27/2020 Partha García Re : Upper GI endoscopy procedure for Bridgett Uriostegui Ricky This procedure was performed on Thursday, August 27, 2020. My impressions and recommendations are as follows: Impressions : - LA Grade A reflux esophagitis. Biopsied. - Medium-sized hiatal hernia. - Erythematous mucosa in the antrum. Biopsied. - Normal examined duodenum. - The SCHWARTZ pH capsule was deployed. Recommendations : - Discharge patient to home. - Resume previous diet. - Continue present medications. - Return to my office in 1 week. My findings are described in the full procedure note, which is enclosed. If I can be of further assistance, please feel free to contact me at Doctor phone number(s): Work: . Sincerely, Roddy Arellano MD 08/27/2020 8:07:25 AM This report has been signed electronically.
== END 2020-08-27 09:28 | disposition home or self-care (01) ==
LOC: EN 06:36 → AC 06:37
PROVIDERS: Anesthesiology; PCP Family Medicine; Referring Provider Family Medicine; Visit Provider Surgery
PROC: (CPT 43239; principal; 2020-08-27 07:40)
DX: K21.9 Gastro-esophageal reflux disease without esophagitis (principal); E78.5 Hyperlipidemia, unspecified; Z79.899 Other long term (current) drug therapy; R15.9 Full incontinence of feces; K44.9 Diaphragmatic hernia without obstruction or gangrene; D64.9 Anemia, unspecified; K31.89 Other diseases of stomach and duodenum
CPT/HCPCS: 43239; 87635; 88305; 88312; 88342; C9803; J7120; U0003

== ENCOUNTER 2020-09-26 10:37 | Day surgery (SDC) | payer OTHER, SELFPAY ==
[2020-08-27 07:18] VITALS: BMI 27.5
[2020-09-26 10:55] VITALS: BP 124/95; PULSE 100; RESP 16; TEMP 36.9; O2SAT 97
[2020-09-26] MEDS: Lidocaine Jelly 2% 20 ML Syringe (URO-JET) 20 APPLIC (11:06)
== END 2020-09-26 11:33 | disposition home or self-care (01) ==
PROVIDERS: Surgery; PCP Family Medicine; Referring Provider Family Medicine; Visit Provider Surgery
PROC: F00ZJWZ Instrumental Swallowing and Oral Function Assessment using Swallowing Equipment (ICD-10-PCS; CPT 43235; principal; 2020-09-26 10:40)
DX: K21.9 Gastro-esophageal reflux disease without esophagitis (principal); Z20.828 Contact with and (suspected) exposure to other viral communicable diseases
CPT/HCPCS: 91010; 87426; C9803

== ENCOUNTER → 2021-01-17 08:20 | Outpatient (CLI) | payer OTHER, SELFPAY ==
[2021-01-09 13:10] VITALS: BMI 29.0
--- NOTE | 2021-01-17 08:21 | RAD_ITS ---
STUDY: X-RAY - THORACIC SPINE REASON FOR EXAM: Female, 55 years old. DJD SPINAL STENOSIS / LUMBAR POST LAMINECTOMY SYNDROME TECHNIQUE: 2 view(s) of the thoracic spine were obtained. COMPARISON: None. FINDINGS: Normal kyphosis of the thoracic spine. There is no substantial scoliosis. Normal thoracic vertebrae and endplates. Normal disc space heights. The tip of the electrodes of a TENS unit are at the T7-T8 level. RAD/Thoracic Spine 2 Views IMPRESSION: No acute abnormality is seen. Electrodes from a TENS unit are at the T7-T8 level. Electronically Signed: Donnie Hurtado MD at 12:57 EST , Service support ,
== END ==
PROVIDERS: PCP Family Medicine; Referring Provider Nurse Practitioner Family; Visit Provider Nurse Practitioner Family
DX: M96.1 Postlaminectomy syndrome, not elsewhere classified (principal)
CPT/HCPCS: 72070

== ENCOUNTER 2021-01-20 10:57 | Observation (INO) | payer OTHER, SELFPAY ==
[2021-01-09 13:10] VITALS: BMI 29.0
--- NOTE | 2021-01-14 11:52 | EKG12_ITS ---
Test Reason : PRE OP Blood Pressure : / mmHG Vent. Rate : 100 BPM Atrial Rate : 100 BPM P-R Int : 138 ms QRS Dur : 112 ms QT Int : 372 ms P-R-T Axes : 040 -46 035 degrees QTc Int : 479 ms Normal sinus rhythm Left anterior fascicular block Incomplete right bundle branch block Abnormal ECG Confirmed by KATHERINE QUILES, SASHA ([id number]), photo editor AD MAYA ([id number]) on 01/15/2021 9:29:03 AM Referred By: Roddy Arellano Confirmed By:SASHA MURPHY MD
[2021-01-14 13:05] LABS: Hemoglobin 14.1 g/dL (12.0-15.0); Mean Corpuscular Hgb 29.4 pg (27.0-32.0); Mean Corpuscular Volume 91.7 fL (81-99); Mean Platelet Vol. 9.3 fl (6.2-12.0); Platelet Count 494 K/mm3 (150-450); RBC Distribution Width CV 12.4 % (11.6-14.6); RBC Distribution Width SD 41.6 fl (35.1-43.9)
[2021-01-14 13:42] LABS: Anion Gap 8 (5-15); BUN 16 mg/dL (7-18); BUN/Creat Ratio 19.9 RATIO (10-20); Calcium,Total 9.6 mg/dL (8.5-10.1); Chloride 105 mmol/L (98-107); EST Glomerular Filtration Rate 79 mL/min (>60); Est Glom Filt Rate - Afr Amer 96 mL/min (>60); Glucose 84 mg/dL (74-106); Potassium 3.7 mmol/L (3.5-5.1); Sodium Level 140 mmol/L (136-145)
[2021-01-20] VITALS (12 sets, daily range): BP systolic 109–125; BP diastolic 61–82; PULSE 86–125; RESP 16–20; TEMP 36.7–37.7; O2SAT 97–100; BMI 26.9
--- NOTE | 2021-01-20 | HERN_PTH ---
PATIENT: RAFAEL RICHTER LOC: MS3 U#:[id number] AGE/SX: 55/F [place] [facility] [place]: Dr. Roddy Arellano MD : 1965 BED: 1 DIS: 01/22/2021 SPEC #: [id number] RECD: 01/20/21 12:59 STATUS: KINGSLEY REJon #: [id number] LILLY: 01/20/21 00:[address]: Roddy Arellano DEPT: SURGICAL PATHOLOGY RECD BY: Macario Thomas ENTERED: 01/20/21 12:59 SP TYPE: Hernia OTHR DR: MD Jessica Arguelles, YARD ATTENDANT-C Tissues: HERNIA Procedures: Surgery Specimen Level II HEADER OPERATION: Laparoscopic repair of hiatal hernia PRE-OP DIAGNOSIS: Hiatal hernia, GERD TISSUE SUBMITTED: Hiatal hernia sac MICROSCOPIC DIAGNOSIS Hiatal hernia sac: A piece of mature adipose tissue, clinically hiatal hernia sac. NURYS:etienne 01/21/2021 MICROSCOPIC DESCRIPTION Slides are reviewed. GROSS DESCRIPTION Received in fixative is one container labeled with the patient's name and designated hiatal hernia sac. The specimen consists of a piece of adipose tissue measuring 7 x 1.5 x 0.5 cm. No mass lesion is identified. On Car Supervisor sections are submitted in one cassette. / NURYS:etienne 01/20/21 TC:5 CPT: 02237
[2021-01-20] MEDS: Lactated Ringers 1,000 ML 100 ML IV ×2 (06:30→12:25)
--- NOTE | 2021-01-20 06:37 | PCM.HP.BLA ---
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: No Is patient in pain?: No Allergies NSAIDS (Non-Steroidal Anti-Inflamma Adverse Reaction (Verified 01/09/21 13:11) Nausea Medications cycloBENZAPRine HCl [Flexeril] 5 mg PO 4X/DAY PRN 08/22/13 [History Confirmed 01/09/21] Gabapentin 1,200 mg PO TID 04/17/14 [History Confirmed 01/09/21] traMADol [Ultram] 50 - 100 mg PO Q6H PRN PRN 07/01/16 [History Confirmed 01/09/21] Famotidine [Pepcid] 20 mg PO BID #28 tab 09/09/16 [Rx Confirmed 01/09/21] atorvastatin 40 mg tablet 40 mg PO QHS 06/13/20 [History Confirmed 01/09/21] Ergocalciferol [Vitamin D] 50,000 units PO QWEEK 06/22/20 [History Confirmed 01/09/21] Acetaminophen [Tylenol Tablet] 650 mg PO Q6H PRN PRN tab 06/23/20 [Rx Confirmed 01/09/21] PFS Medical History Ventral incisional hernia without obstruction or gangrene (Acute) Hyperlipidemia (Chronic) Left anterior fascicular block (LAFB) (Acute) RBBB (right bundle branch block) (Chronic) Abnormal EKG (Acute) Gastroesophageal reflux disease (Chronic) Positional vertigo (Chronic) Anxiety and depression (Acute) Back problem (Acute) Diarrhea (Acute) GERD (gastroesophageal reflux disease) (Acute) Lumbar disc disease (Acute) Narcolepsy (Acute) Pyloric stenosis (Acute) Surgical History History of appendectomy (Acute) History of back surgery (Acute) History of bilateral carpal tunnel release (Acute) History of bladder repair surgery (Acute) History of cholecystectomy (Acute) History of colectomy (Acute) History of colonoscopy (Acute ~2014) History of esophagogastroduodenoscopy (EGD) (Acute ~2015) History of hysterectomy with unilateral oophorectomy (Acute) history of spinal stimulator (Acute) Family History Mother Breast cancer Diabetes Hypertension Grandmother Myocardial infarction, Onset Age: 68 Social History (Updated 01/09/21 @ 14:19 by Beatris MORALES, PALiz) Smoking Status: Never smoker alcohol intake: never substance use type: does not use caffeine: Yes Type: coffee Number of servings: 2 HPI HPI HPI: RAFAEL RICHTER is a 55 F who presents to the office today for HPI HPI Surgical H&P: Yes HPI: RAFAEL RICHTER is a 55 F who presents to the office today for an update history and physical. Patient notes increased symptoms of burning sensation and globulus sensation in her throat. She notes multiple times per day she is having symptoms. She notes slight discomfort in the LUQ. She had to stop taking her omeprazole due to cost. She continues to take her Pepcid. She denies previous complications with anesthesia. She denies previous cardiac and pulmonary history. Patient notes previous history of colectomy due to perforated colon. Patient's previous history per Dr. Arellano: RAFAEL RICHTER, is a 55 F who presents to the office today for surgical consultation for what is felt to be intractable gastroesophageal reflux disease. The patient is referred by Justyna Treviño CNP and a written copy my surgical consult recommendations will be returned to her as well as forwarded on to Dr. García. I have assisted the patient in the past and on February 08, 2015 performed a combined upper and lower endoscopy. Low-grade reflux esophagitis was identified. EG junction at 35 to 36 cm. Diffusely erythematous stomach. Normal duodenum. Small hiatal hernia. Although the patient carries a history of pyloric stenosis she is not particularly familiar with that term. She had a colonoscopy at that same setting that was unremarkable with follow-up colonoscopy at 10 years recommended. She is complaining of a high retrosternal chest discomfort. She takes omeprazole 20 mg daily on most days and occasionally will take it twice daily. In addition to that she sometimes have to add 20 mg of Pepcid. All of this is in treatment of a high retrosternal chest discomfort which she feels is reflux. Now she does describe however that she has hyperlipidemia and that there is difficulty in controlling her cholesterol level. She does not particularly describe chest discomfort with exertion. She does have back issues and had has had multiple back surgeries. She has problems with some fecal incontinence which is felt secondary to be due to potential nerve damage from her back issues. She has not had a gastric stress test. She thinks she may have very remotely had a gastric emptying study. She denies bright red blood per rectum or melena. Occasionally has some mucus. She is not a tobacco user. She has not had any weight loss. There is no family history of colon cancer It is of note however that dating back to October 17, 2008 she had a perforated right colon and pneumatosis intestinalis. She underwent an laparoscopic right colectomy. The pathology showed cecum and ascending colon with focal area of submucosal hemorrhage. Mild serosal acute inflammation. Reactive lymphoid aggregates. The ascending colon was dilated up to 11 cm. No obvious perforation was identified by the pathologist. Patient states that she spent 5 days in the ICU at that time. She does have an upper midline incision She is also previously had a cholecystectomy. The patient returns today to discuss recent testing. Please refer to my previous office note for a full evaluation. On August 27, 2020 she had a esophagogastroduodenoscopy with biopsy and pH probe placement. The DeMeester score total was 48. H. pylori was negative. She has a significant hiatal hernia and focal acute esophagitis without fungus. Chronic gastritis. October 02, 2020 Esophageal manometry was performed on 11 50,020. This demonstrates good bolus clearance. Very low LES basal tone. 40% weak swallows. If the patient wanted to pursue surgical treatment I would recommend a laparoscopic toupet procedure. [facility] [address] [place] [address] Gastric Emptying Study MR#: [id number]:[id number] Name: RAFAEL RICHTERRep #:[id number] : [id number] [id number] From: Aleksandr Chamberlain DO PCP:Dr. Partha García MD Status:REG CLI Study:Gastric Emptying Study Date of Exam:06/21/20 Exam#[id number] Ordering Dr: Roddy Arellano MD CLINICAL: 55-year-old female with reported history of dyspepsia. SEMI-SOLID PHASE 99m Tc SULFUR COLLOID GASTRIC EMPTYING STUDY COMPARISON: None available FINDINGS: The patient was administered approximately 1.0 mCi of 99m Tc sulfur colloid mixed with oatmeal and consumed per os. Image acquisitions in the anterior-posterior projections were obtained for 60 minutes. There is prompt visualization of the stomach. There is no gastroesophageal reflux identified. The T1/2 linear fit was calculated to be 28.52 minutes, (Normal: 12-56 minutes). NM/Gastric Emptying Study IMPRESSION: 1. NORMAL 99m Tc sulfur colloid semi-solid phase (oatmeal) gastric emptying imaging examination. A. There is normal and preserved semi-solid phase gastric emptying compared to normal controls. (Mirtha et al, J Nucl Med Tech 38: 186, 2010). Electronically Signed: Aleksandr Chamberlain DO at 8:08 EDT Tel , Service support , ROS General General: No weight change, appetite, fatigue, colon cancer, breast cancer or weakness HEENT HEENT: No difficulty swallowing, eye injury, eye surgery, swollen glands or hoarseness Endo Endocrine: No thyroid disease, diabetes mellitus, thyroid cancer, Hair loss, heat intolerance or cold intolerance Musc Musculoskeletal: Yes back problems; no arthritis, rheumatoid arthritis, gout or joint pain Cardio Cardiovascular: No murmur, pacemaker, heart disease, atrial fibrillation, high blood pressure, heart attack, heart stent, palpitations, shortness of breat with exertion or chest pain Psych Psychiatric: Yes depression and anxiety; no hearing voices Resp Respiratory: No shortness of breath, No sleep apnea, No cough, No COPD, No asthma, No emphysema, No wheezing Gastro Gastrointestinal: No abdominal pain, No nausea or vomiting, Yes diarrhea, No constipation, No blood in stool, Yes acid reflux, No hemorrhoids, No ulcers, No gallbladder problem, No black,tarry stools Dirk Hematologic: No blood thinners, No blood disorders, No bleeding, No anemia, No blood clots Neuro Neurologic: No weakness Exam Const General: cooperative, healthy appearing, comfortable, no acute distress HENMT Head: normal to inspection Eyes General: appearance normal, both eyes and all related structures Neck Neck: normal visual inspection Neck mass: No Resp Effort & Inspection: normal respiratory effort Auscultation: clear to auscultation bilaterally Cardio Rate: regular rate Rhythm: regular rhythm Heart Sounds: no murmurs GI Inspection: normal to inspection Palpation: soft Auscultation: normal bowel sounds Skin General: no rashes or lesions noted Neuro General: no focal motor deficits, CN's II-XI intact bilaterally Extrem General: normal to inspection Psych Appearance: grossly normal Affect: normal affect Assessment & Plan Problems 1. Hiatal hernia K44.9 2. Gastroesophageal reflux disease with esophagitis without hemorrhage K21.00 3. Ventral incisional hernia without obstruction or gangrene K43.[address] Arellano will plan to perform a laparoscopic Toupet repair of the hiatal hernia. Procedure details, risks and benefits have been reviewed with the patient. Patient has had the opportunity to ask and have questions answered. Patient verbally understands and agrees with the plan. Patient understands her ventral incisional hernia will be repaired at a later date. Coding Level of Care Code No Charge Diagnoses Hiatal hernia K44.9 Gastroesophageal reflux disease with esophagitis without hemorrhage K21.00 ??Esophagitis presence: with esophagitis ??Esophagitis bleeding: without hemorrhage Ventral incisional hernia without obstruction or gangrene K43.2 Comment Update H&P I have re-examined the patient. There are no clinical changes since date of exam. Roddy Arellano M.D., F.A.C.S. Procedure Criteria Procedure Type: Elective COVID Risk Discussion: The surgeon/proceduralist and patient have discussed in detail the risk of exposure to and/or potential harm posed by the COVID-19 virus with having a surgery/procedure at this time versus the risk of delaying the surgery/procedure. It is not possible to know either the risk of delaying the surgery or procedure or chance of getting an infection with perfect accuracy, but a joint decision was made between the patient and the surgeon/proceduralist to proceed at this time with the scheduled surgery/procedure as indicated on the consent form.
--- NOTE | 2021-01-20 06:41 | DCINST_ITS ---
Discharge Diet: - - Refer to my preprinted instructions Allergies/Adverse Reactions: Allergies NSAIDS (Non-Steroidal Anti-Inflamma Adverse Reaction (Verified 01/20/21 05:59) Nausea Medications to take at Discharge cycloBENZAPRine HCl [Flexeril] 5 mg PO 4X/DAY PRN 08/22/13 Gabapentin 1,200 mg PO TID 04/17/14 traMADol [Ultram] 50 - 100 mg PO Q6H PRN PRN 07/01/16 atorvastatin 40 mg tablet 40 mg PO QHS 06/13/20 Ergocalciferol [Vitamin D] 50,000 units PO QWEEK 06/22/20 Acetaminophen [Tylenol Tablet] 650 mg PO Q6H PRN PRN tab 06/23/20 Famotidine [Pepcid] 20 mg PO BID 01/13/21 Primary Care Physician: Partha García MD [Primary Care Provider] - Test Results: Test results from this visit will be discussed in further detail at your follow- up appointment, if applicable. Please Follow Up With: Roddy Arellano MD - [phone] When: Call to make an appointment to be seen in about 10 days.
[2021-01-20] MEDS: Cefazolin 2 GM in 0.9% Normal Saline 100 ML IV (07:40)
[2021-01-20] MEDS: Bupivacaine Mpf 0.5% 30 ML VIAL (10:39)
[2021-01-20] MEDS: Lidocaine 1% (20 ml mdv) 20 ML Vial (10:40)
--- NOTE | 2021-01-20 10:47 | OP.EGD_ITS ---
Patient Name: Bridgett Mendiola Procedure Date: 01/20/2021 9:21 AM Date of : 1965 Age: 55 Procedure: Upper GI endoscopy Indications: Esophageal reflux Providers: Roddy Arellano MD Medicines: See the Anesthesia note for documentation of the administered medications Complications: No immediate complications. Procedure: Pre-Anesthesia Assessment: - Prior to the procedure, a History and Physical was performed, and patient medications and allergies were reviewed. The patient's tolerance of previous anesthesia was also reviewed. The risks and benefits of the procedure and the sedation options and risks were discussed with the patient. All questions were answered, and informed consent was obtained. Prior Anticoagulants: The patient has taken no previous anticoagulant or antiplatelet agents. ASA Grade Assessment: II - A patient with mild systemic disease. After reviewing the risks and benefits, the patient was deemed in satisfactory condition to undergo the procedure. After obtaining informed consent, the endoscope was passed under direct vision. Throughout the procedure, the patient's blood pressure, pulse, and oxygen saturations were monitored continuously. The gastroscope was introduced through the mouth, and advanced to the duodenal bulb. The upper GI endoscopy was accomplished without difficulty. The patient tolerated the procedure well. Scope In: 10:23:23 AM Scope Out: 10:30:22 AM Total Procedure Duration Time 0 hours 6 minutes 59 seconds Findings: A prior Toupet fundoplication was found in the cardia. Bleeding secondary to a maneuver was found in the gastric fundus. The examined duodenum was normal. The examined esophagus was normal. Impression: - A Toupet fundoplication was found. - Bleeding secondary to a maneuver in the gastric fundus. - Normal examined duodenum. - Normal esophagus. - No specimens collected. Recommendation: - Admit the patient to hospital [facility] for ongoing care. - Clear liquid diet. - Continue present medications. Procedure Code(s): --- Professional --- 82906, Esophagogastroduodenoscopy, flexible, transoral; diagnostic, including collection of specimen(s) by brushing or washing, when performed (separate procedure) Diagnosis Code(s): --- Professional --- Z98.890, Other specified postprocedural states K92.2, Gastrointestinal hemorrhage, unspecified K21.9, Gastro-esophageal reflux disease without esophagitis CPT copyright 2017 [employer]. All rights reserved. The codes documented in this report are preliminary and upon flood control engineer review may be revised to meet current compliance requirements. Roddy Arellano MD 01/20/2021 10:47:15 AM This report has been signed electronically. Number of Addenda: 0 Note Initiated On: 01/20/2021 9:21 AM
--- NOTE | 2021-01-20 10:48 | PCM.OPRPT ---
Problem List (1) Ventral incisional hernia without obstruction or gangrene Status: Acute (2) Gastroesophageal reflux disease Status: Chronic Qualifiers: Report of Operation Date of Procedure: 01/20/21 Pre-Operative Diagnosis: Gastroesophageal reflux disease with reflux esophagitis and hiatal hernia Post-Operative Diagnosis: Same Surgery/Procedure Performed:: Laparoscopic repair of hiatal hernia with laparoscopic toupet procedure and esophagogastroduodenoscopy post procedure Description of Surgical Findings:: Timeout and informed consent was obtained. 55-year-old female was taken to the operating placed on a beanbag supine on the table. She underwent general endotracheal intubation esthesia. Ancef 2 g were given intravenously. She was placed in the low lithotomy position. Careful buttock protector was performed with rolled blankets to assure good positioning on the table. The abdomen sterilely prepped and draped. 0.5% Marcaine mixed 50-50 with 1% lidocaine was used for local anesthetic. Initially tried in the right upper quadrant to get access. Tell that I got into the peritoneum but there were adhesions. Clearly no bowel. So then the left upper quadrant using a Visiport technology as I had on the right I cannot clean access the abdomen is insufflated with CO2. There were adhesions involving the midline. These were carefully dissected free with harmonic scalpel. Approximately 30 minutes of dissection was required. The trocar that I placed from the right upper quadrant was clearly visualized there was no evidence of any trocar injuries. I was not able to clear the adhesions all the way to the right as my port site was not appropriate for that and I did not want to risk potential transverse colon or small bowel injury. I cleared the adhesions as far as I needed to in order to accomplish today's procedure. I had a 5 Pedroza trocar in the right epigastric area that I placed a 10 mm trocar in left epigastric area and additional 5 was in the left lateral epigastric area and then quite lateral movement left upper quadrant I placed a additional 5 mm port all under visualization. I placed a 5 mm port in the epigastric area so was then to place a Berta retractor which was secured to the bedside. That was used to elevate the left lobe of the liver. I now had very good visualization as I had the patient in reverse Trendelenburg position. The initial dissection was used at the gastrohepatic ligament. Care was taken to inspect for any nerves. The right martina was identified freed the esophagogastric junction at that point using robotic scalpel. Dissected over the anterior surface of the esophagus. Tried to free some of the left martina however it became apparent that due to fibrofatty change at the stomach was fairly well adherent to the left martina and short gastrics so I made a window in the gastrohepatic omentum close to the fundus of the stomach. Using amount of scalpel to transect the short gastrics this was actually very tedious stomach was quite adherent posteriorly careful dissection and retraction was required. However I was able to achieve this. Several hemolock clips were used for hemostasis. I now had the entire fundus mobilized. This allowed me then to finish dissection of the posterior aspect of the esophagus and then 6 cm up in the mediastinum circumferentially around the esophagus. The vagus nerve carefully protected. I was able to place 1/2 inch Jaylon drain around the esophagus for better mobilization and inspection. Small opening of the right pleura was identified. As was running carbon dioxide that would be treated with anesthesia provided people at the end. I had excellent length of esophagus. Crura was nicely visualized. Using pledgeted sutures and single simple suture fashion I approximated the crura with 0 Ethibond.. 3 separate sutures were placed. A 46 [place] bougie was then placed transorally. I felt that he had good approximation. Bougie was then withdrawn. I took the fundus of the stomach wrapped it posteriorly. I secured the mid posterior portion of the wrap to the crura using a 0 Ethibond. I then performed a laparoscopic toupee using 2-0 Ethibond to secure the wrap portion of the stomach at about 20 degrees anterior to the horizontal line suture incorporating the esophagus the epiphrenic ligament and the wrap portion of the stomach. In a running fashion I then performed a portion of the toupet approximated the esophagus to the wrap portion of the stomach. This was performed for approximately 2-1/2 cm. I then took the opposite side of the fundus that appeared to lie in very good position in a similar fashion and secured the apex of that portion of the wrap to the esophagus into the epiphrenic ligament. I did a running suture technique approximating the fundus to the esophagus. I now had a posterior 270 degree wrap. The abdomen was insufflated with some water. I performed out upper endoscopy as dictated in provision. This demonstrated the EG junction appeared to be intact. Allow the scope to move easily retroflexed the scope seen that the posterior wrap appeared to be nicely intact. Excess fluid and air was aspirated free the stasis was intact blood loss from procedure has been minimal. The 10 mm trocar was removed. That site was closed with a simple suture of 5-0 Vicryl using a grainy needle technique. The abdomen was then allowed to deflate of the CO2. This was done through antiviral valve. The trochars were removed. The skin incisions were closed with interrupted 4-0 Monocryl subdermal stitches. Steri-Strips Telfa and OpSite dressings applied. At this point anesthesia did provide the positive end expiratory pressure to reinflate the right lung. Sponge and instrument and needle counts reported to surgically correct. Specimens include the hernia sac. I resected that once I had the EG junction. I did that with harmonic scalpel and that small amount of tissue was removed and sent for analysis. Drains none. Blood loss minimal. Roddy Arellano M.D., F.A.C.S.
[2021-01-20] MEDS: Lactated Ringers 1,000 ML 30 ML IV (11:29)
[2021-01-20] MEDS: cycloBENZAPRine HCl 10 MG Tablet 5 MG PO ×2 (13:32→21:37)
[2021-01-20] MEDS: traMADol 50 MG Tablet PO (13:36)
[2021-01-20] MEDS: Ondansetron 4 MG/2 ML Vial IV ×2 (13:45→21:44)
[2021-01-20] MEDS: Morphine 2 MG/ML Syringe IM (14:03)
--- NOTE | 2021-01-20 16:06 | PCM.PN.BLA ---
Progress Note Patient denies abdominal pain. She is not having nausea. She sat up the bedside though developed severe chest pain and dizziness. She is clinically much improved after lying supine. I suspect that this is a carbon dioxide effect. She still is mildly tachycardic at 120. Blood pressure is stable. I believe all of this is a pain response. She states that the discomfort was rather high when she first got up. I believe her abdomen is somewhat relieved as I did some nerve block. I suspect that the carbon dioxide and subdiaphragmatic stretch is causing her some difficulties. She is intolerant to NSAIDs so I cannot utilize that. I will try giving a small dose of Dilaudid to see if we can help calm the discomfort. I am very confident about the surgical procedure and anticipate resolution. It is of note that breath sounds are clear bilaterally. They are symmetric bilaterally. I hear good breath sounds particularly in the right apex. We will need to hold the patient for observation. Roddy Arellano M.D., F.A.C.S. STROKE Vital Signs/Narrative: Vital Signs Temp Pulse Resp BP Pulse Ox 01/20/21 15:23 99.6 F H 125 H 18 117/67 98 01/20/21 13:23 98.2 F 102 H 20 H 119/74 99 01/20/21 12:29 98.1 F 101 H 18 119/81 H 99 01/20/21 12:15 97 18 113/76 99
[2021-01-20] MEDS: HYDROmorphone 0.5 MG/0.5 ML SYRINGE IV ×3 (17:18→21:34)
[2021-01-20] MEDS: Ensure Clear 120 ML Liquid PO (17:28)
[2021-01-20] MEDS: LORazepam 2 MG/ML Syringe IV (18:15)
[2021-01-20] MEDS: 0.9% Saline Lock 10 ML Syringe IV (21:34)
[2021-01-20] MEDS: Gabapentin 600 MG Tablet 1200 MG PO (21:38)
[2021-01-20] MEDS: Atorvastatin Calcium 40 MG Tablet PO (21:38)
[2021-01-20] MEDS: Famotidine 20 MG Tablet PO (21:38)
[2021-01-21] VITALS (11 sets, daily range): BP systolic 100–119; BP diastolic 63–76; PULSE 100–125; RESP 16–18; TEMP 36.6–38.9; O2SAT 90–96
[2021-01-21] MEDS: 0.9% Saline Lock 10 ML Syringe IV ×3 (02:17→17:59)
[2021-01-21] MEDS: LORazepam 2 MG/ML Syringe IV ×3 (02:17→19:37)
[2021-01-21] MEDS: HYDROmorphone 0.5 MG/0.5 ML SYRINGE IV ×4 (02:18→20:48)
--- NOTE | 2021-01-21 03:47 | NURSING ---
0130 offered to walk/ ambulate pt in room and halls, pt states she doesn't want to aggravate the pain. this RN will ask pt again in AM if she will ambulate
--- NOTE | 2021-01-21 03:51 | NURSING ---
0130 pt did state to this RN that when she got to the unit yesterday they got me up to the BSC and I walked a little bit then
--- NOTE | 2021-01-21 05:00 | NURSING ---
pt ambulated around room at this time and voided on BSC at this time x1 assist. pt stated that her pain increased with movement, but otherwise denied dizziness. pt back to bed
[2021-01-21] MEDS: cycloBENZAPRine HCl 10 MG Tablet 5 MG PO ×3 (05:05→20:54)
[2021-01-21] MEDS: traMADol 50 MG Tablet PO ×2 (05:06→11:19)
[2021-01-21] MEDS: Gabapentin 600 MG Tablet 1200 MG PO ×3 (05:06→20:54)
[2021-01-21 05:29] LABS: Absolute Neutrophil Count 7.9 X10^3/uL (2.0-7.7); Basophil# 0.03 X10^3/uL; Basophil% 0.3 % (0-1); Eosinophil# 0.01 X10^3/uL; Eosinophils% 0.1 % (0-5); Hematocrit 35.6 % (37-47); Hemoglobin 11.4 g/dL (12.0-15.0); Lymphocyte % 23.5 % (19-41); Mean Corpuscular Hgb 29.1 pg (27.0-32.0); Mean Corpuscular Volume 90.8 fL (81-99); Mean Platelet Vol. 8.9 fl (6.2-12.0); Monocyte# 0.76 X10^3/uL; Monocyte% 6.6 % (0-10); NRBC Flagged by Analyzer 0 % (0-5); Neutrophil # 7.94 X10^3/uL (2.7-7.7); Neutrophil % 69.2 % (47-70); Platelet Count 289 K/mm3 (150-450); RBC Distribution Width CV 12.8 % (11.6-14.6); RBC Distribution Width SD 42.1 fl (35.1-43.9); Red Blood Count 3.92 M/mm3 (4.2-5.4); White Blood Count 11.5 K/mm3 (4.4-11.0)
[2021-01-21] MEDS: HYDROmorphone 1 MG/ML Syringe IV (05:45)
--- NOTE | 2021-01-21 05:49 | PN.SURG_ITS ---
Patient Problems: Active and Suspected Problems (Last Reviewed 01/09/21 @ 13:12 by Jennifer Nielsen) Ventral incisional hernia without obstruction or gangrene (Acute) Subjective: Pt having spasms of pain right chest, improved with ativan Pt is already on maximum dosing of gabapentin Pt has had multiple back operations and has a nerve stimulator in place Minimal nausea, no heart burn Mild tachycardia improved - Physical Exam Vitals/I&O's: Vital Signs Temp Pulse Resp BP Pulse Ox 98.6 F 103 H 18 113/70 96 01/21/21 02:14 01/21/21 02:14 01/21/21 02:14 01/21/21 02:14 01/21/21 02:14 Oxygen Flow Rate (L/min) 2 Oxygen Delivery Method Room Air Weight: 147 lb 4.301 oz Body Mass Index (BMI) 26.9 Intake and Output for Last 24 Hours 01/19/21 01/20/21 01/21/21 23:59 23:59 23:59 Intake Total 2710 / 2710 Output Total 850 / 850 Balance 1860 / 1860 General: Alert, Oriented x3, Cooperative, - - uncomcomfortable Lungs: Clear to auscultation, - - splinting Abdomen: Bowel Sounds Present, Soft, - - mild diffuse tenderness Laboratory Results 01/21/21 05:16: WBC 11.5 H, RBC 3.92 L, Hgb 11.4 L, Hct 35.6 L, MCV 90.8, MCH 29.1, MCHC 32.0, RDW Std Deviation 42.1, RDW Coeff of Barb 12.8, Plt Count 289, MPV 8.9, Immature Gran % (Auto) 0.300, Neut % (Auto) 69.2, Lymph % (Auto) 23.5, [place] % (Auto) 6.6, Eos % (Auto) 0.1, Baso % (Auto) 0.3, Absolute Neuts (auto) 7.9 H, Absolute Lymphs (auto) 2.70, Nucleated RBC % 0 Current Medications Acetaminophen (Acetaminophen 325 Mg Tablet) 650 mg PO Q6H PRN PRN PRN Reason: PAIN 1-10 Atorvastatin Calcium (Atorvastatin Calcium 40 Mg Tablet) 40 mg PO QHS BLAKE Last Admin: 01/20/21 21:38 Dose: 40 mg Documented by: Cyclobenzaprine HCl (Cyclobenzaprine Hcl 10 Mg Tablet) 5 mg PO 4X/DAY PRN PRN Reason: .MUSCLE SPASM Last Admin: 01/21/21 05:05 Dose: 5 mg Documented by: Famotidine (Famotidine 20 Mg Tablet) 20 mg PO BID PENDING SALE TO [facility] Last Admin: 01/20/21 21:38 Dose: 20 mg Documented by: Gabapentin (Gabapentin 600 Mg Tablet) 1,200 mg PO TID PENDING SALE TO [facility] Last Admin: 01/21/21 05:06 Dose: 1,200 mg Documented by: Hydromorphone HCl (Hydromorphone 0.5 Mg/0.5 Ml Syringe) 0.5 - 1 mg IV Q3H PRN PRN PRN Reason: Pain Score 1-10 Last Admin: 01/21/21 02:18 Dose: 1 mg Documented by: Hydromorphone HCl (Hydromorphone 1 Mg/Ml Syringe) 0.5 - 1 mg IV Q3H PRN PRN PRN Reason: Pain Score 1-10 Last Admin: 01/21/21 05:45 Dose: 1 mg Documented by: Lactated Ringer's () 1,000 mls @ 30 mls/hr IV .[id number] PENDING SALE TO [facility] Last Admin: 01/20/21 11:29 Dose: 30 mls/hr Documented by: Influenza Virus Vaccine Quadrival (Influenza Vaccine (6mos+)/Pf 0.5 Ml Syringe) 0.5 ml IM .ONCE ONE Stop: 01/21/21 10:01 Lorazepam (Lorazepam 2 Mg/Ml Syringe) 0.5 - 1 mg IV Q6H PRN PRN PRN Reason: SPASMS Last Admin: 01/21/21 02:17 Dose: 1 mg Documented by: Meclizine HCl (Meclizine 12.5 Mg Tablet) 12.5 mg PO DAILY PRN PRN PRN Reason: Vertigo Nutritional Formula (Lactose Free) (Ensure Clear 120 Ml Liquid) [facility] [place] Last Admin: 01/20/21 17:28 Dose: 120 ml Documented by: Ondansetron HCl (Ondansetron 4 Mg/2 Ml Vial) 4 mg IV Q8H PRN PRN PRN Reason: NAUSEA Last Admin: 01/20/21 21:44 Dose: 4 mg Documented by: Sodium Chloride (0.9% Saline Lock 10 Ml Syringe) 10 - 40 ml IV UD PRN PRN Reason: SALINE FLUSH Last Admin: 01/21/21 02:17 Dose: 10 ml Documented by: Tramadol HCl (Tramadol 50 Mg Tablet) 50 - 100 mg PO Q6H PRN PRN PRN Reason: PAIN Last Admin: 01/21/21 05:06 Dose: 100 mg Documented by: Medical Necessity - Tobacco Use Smoking Status: Never smoker Assessment/Plan All Active Problems (Last Reviewed 01/09/21 @ 13:12 by Jennifer Nielsen) Ventral incisional hernia without obstruction or gangrene (Acute) Left anterior fascicular block (LAFB) (Acute) Abnormal EKG (Acute) I am not detecting an operative problem Suspect altered pain tolerance secondary to previous back procedures and chronic pain Will try to mobilize Hopeful discharge later today. May need musculoskeletal anti-spasmotic or anxiolytic for discharge
[2021-01-21] MEDS: LORazepam 2 MG/ML Syringe 1 MG IV (05:51)
[2021-01-21] MEDS: Ensure Clear 120 ML Liquid PO (08:55)
[2021-01-21] MEDS: Famotidine 20 MG Tablet PO ×2 (11:05→20:54)
[2021-01-21] MEDS: Meclizine 12.5 MG Tablet PO (13:19)
[2021-01-21] MEDS: Acetaminophen 325 MG Tablet 650 MG PO ×2 (13:19→22:05)
[2021-01-21] MEDS: Ondansetron 4 MG/2 ML Vial IV (14:03)
--- NOTE | 2021-01-21 16:14 | EKGRS_ITS ---
Test Reason : CP Blood Pressure : / mmHG Vent. Rate : 112 BPM Atrial Rate : 112 BPM P-R Int : 132 ms QRS Dur : 118 ms QT Int : 368 ms P-R-T Axes : 046 -25 013 degrees QTc Int : 502 ms Sinus tachycardia Right bundle branch block Abnormal ECG Confirmed by KATHERINE QUILES, SASHA ([id number]), assignment editor KEYONNA HOANG ([id number]) on 01/23/2021 1:08:22 PM Referred By: Roddy Arellano Confirmed By:SASHA MURPHY MD
--- NOTE | 2021-01-21 16:16 | PCM.PN.BLA ---
Progress Note Patient is having dry heaving, nausea and RUQ pain/chest pain. Pain is only under control with IV pain medication. We will plan to order a CBC with diff, CMP, amylase, lipase, cardiac enzymes, EKG and PA/lateral chest x-ray. Patient does not meet discharge criteria. Patient will need to have status changed to full admit. Inpatient E&M: 27503 Subs Hosp L1 - post-op/no charge
--- NOTE | 2021-01-21 16:32 | RAD_ITS ---
STUDY: X-RAY CHEST REASON FOR EXAM: Female, 55 years old. Chest pain TECHNIQUE: PA and lateral views of the chest. COMPARISON: 06/22/2020 FINDINGS: There is posterior left lower lobe airspace consolidation and infiltrates. There may be small left pleural effusion. The right lung is clear. No right pleural effusion. Normal size heart. Normal mediastinum and nithya. Normal visualized pulmonary arteries. Normal visualized aortic arch and descending thoracic aorta. Normal visualized thoracic spine. There is neural stimulator leads overlying the thoracic and lumbar spine. Normal visualized ribs, clavicles, and shoulders. There is no demonstrated abnormality of the visualized soft tissue structures of the upper abdomen. RAD/Chest PA and Lateral IMPRESSION: Posterior left lower lobe airspace consolidation and infiltrates. There may be small left pleural effusion. The right lung is clear. Electronically Signed: Kim Boo MD at 16:40 EST Tel , Service support ,
[2021-01-21 16:51] LABS: Absolute Lymphocyte Count 2.06 X10^3/uL (0.83-4.51); Absolute Neutrophil Count 8.5 X10^3/uL (2.0-7.7); Basophil# 0.03 X10^3/uL; Basophil% 0.3 % (0-1); Eosinophil# 0.05 X10^3/uL; Eosinophils% 0.4 % (0-5); Hematocrit 36.3 % (37-47); Hemoglobin 11.8 g/dL (12.0-15.0); Lymphocyte # 2.06 X10^3/ul (4.0); Mean Corp Hgb Conc 32.5 g/dL (32-36); Mean Corpuscular Hgb 29.6 pg (27.0-32.0); Mean Corpuscular Volume 91.2 fL (81-99); Mean Platelet Vol. 8.9 fl (6.2-12.0); Monocyte# 0.77 X10^3/uL; Monocyte% 6.7 % (0-10); NRBC Flagged by Analyzer 0 % (0-5); Neutrophil # 8.52 X10^3/uL (2.7-7.7); Neutrophil % 74.3 % (47-70); Platelet Count 273 K/mm3 (150-450); RBC Distribution Width CV 12.7 % (11.6-14.6); RBC Distribution Width SD 42.3 fl (35.1-43.9); Red Blood Count 3.98 M/mm3 (4.2-5.4); White Blood Count 11.5 K/mm3 (4.4-11.0)
[2021-01-21 17:14] LABS: ALB/GLOB Ratio 0.9 RATIO (0.9-2.4); AST(SGOT) 236 U/L (15-37); Alanine Aminotransfer ALT/SGPT 263 U/L (13-56); Albumin, Serum 3.3 g/dL (3.2-5.0); Alkaline Phosphatase 76 U/L (45-117); Amylase 16 U/L (25-115); Anion Gap 6 (5-15); BUN 13 mg/dL (7-18); BUN/Creat Ratio 15.9 RATIO (10-20); Calcium,Total 8.4 mg/dL (8.5-10.1); Chloride 103 mmol/L (98-107); Creatinine, Serum 0.82 mg/dL (0.55-1.02); EST Glomerular Filtration Rate 77 mL/min (>60); Est Glom Filt Rate - Afr Amer 94 mL/min (>60); Estimated Creatinine Clearance 62.75 ml/min; Globulin 3.5 g/dL (2.2-4.2); Glucose 92 mg/dL (74-106); Lipase 60 U/L (73-393); Potassium 3.6 mmol/L (3.5-5.1); Protein, Total 6.8 g/dL (6.4-8.2); Sodium Level 137 mmol/L (136-145)
--- NOTE | 2021-01-21 17:43 | PCM.PN.BLA ---
Progress Note Patient again seen and evaluated. She continues to complain of spasms of pain through the right chest. Chest x-ray is not remarkable no evidence of pneumothorax on the right. 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 No free air. Laboratory demonstrates an unchanged white blood cell count and unchanged hemoglobin hematocrit. AST and ALT slightly elevated. This might be secondary to the Berta retractor in the left lobe of the liver. This does not seem to correlate with the patient's complaints. Troponins are negative. EKG shows her persistent right bundle branch block. We will continue to observe. If she does not improve then I anticipate a Gastrografin swallow however I believe that the likelihood of a esophagogastric leak is very small as the procedure technically was quite solid. I did discuss her pain management care with Dr. Hoffmann. Some oral pain medicine recommendations were made. Hopefully the patient will be able to be discharged tomorrow. I suspect that most of this is secondary to an altered pain tolerance due to the patient's chronic issues. Roddy Arellano M.D., F.A.C.S.
[2021-01-21] MEDS: Lactated Ringers 1,000 ML 30 ML IV (20:37)
[2021-01-21] MEDS: Atorvastatin Calcium 40 MG Tablet PO (20:54)
--- NOTE | 2021-01-21 23:21 | NURSING ---
Pt's primary support person, Brandi Gonzalez, called in and stated that she had just received a text from the pt stating she was positive for COVID and that Brandi should not visit. I went back and talked to the pt and she stated that she was feeling a little off and probably just texted her incorrectly. She told me to tell Brandi that she wasn't feeling all that well and that she shouldn't visit. I conveyed this information to Brandi Gonzalez and she will just wait to hear from the pt if she needs to pick her up. I further conveyed to Brandi that the pt was not positive for COVID.
[2021-01-21] MEDS: Ceftriaxone 1 GM/50 ML BAG IV (23:23)
--- NOTE | 2021-01-21 23:30 | NURSING ---
Pt up ambulating in halls at this time with assistance of [employer].
--- NOTE | 2021-01-21 23:59 | PCM.CONS.GEN ---
<Almaz Ziegler - Last Filed: 01/22/21 01:40> Problem List (1) Ventral incisional hernia without obstruction or gangrene Status: Acute (2) Chronic pain Status: Chronic (3) Left anterior fascicular block (LAFB) Status: Acute (4) Hyperlipidemia Status: Chronic Qualifiers: Hyperlipidemia type: unspecified Qualified Code(s): E78.5 - Hyperlipidemia, unspecified (5) RBBB (right bundle branch block) Status: Chronic (6) Gastroesophageal reflux disease Status: Chronic (7) Spinal cord stimulator status Status: Chronic (8) Chest pain Status: Chronic Qualifiers: Chest pain type: precordial pain Qualified Code(s): R07.2 - Precordial pain Reason for Consult Date of Consultation: 01/22/21 Reason for Consultation: Postop fever, tachycardia History of Present Illness: The patient is a 55 year old F who presents with a fever of 102 F and tachycardia in the 120s on postop day 2 following a hiatal hernia repair. Patient also complains of right sided chest pain that radiates to her back. Patient denies chills dizziness nausea vomiting. Patient reports that she feels confused and delusional. Past Medical History Past Medical History (Chronic Problems): Chronic Problems (Last Reviewed 01/22/21 @ 00:06 by DANNY Manzano) Spinal cord stimulator status (Chronic) Chronic pain (Chronic) Hyperlipidemia (Chronic) RBBB (right bundle branch block) (Chronic) Gastroesophageal reflux disease (Chronic) Chest pain (Chronic) Positional vertigo (Chronic) Medical History: Medical History (Last Reviewed 01/22/21 @ 00:06 by DANNY Manzano) Ventral incisional hernia without obstruction or gangrene (Acute) K43.2 Hyperlipidemia (Chronic) E78.5 Left anterior fascicular block (LAFB) (Acute) I44.4 RBBB (right bundle branch block) (Chronic) I45.10 Abnormal EKG (Acute) R94.31 Gastroesophageal reflux disease (Chronic) K21.9 Positional vertigo (Chronic) H81.10 Anxiety and depression F41.9, F32.9 Back problem M53.9 Diarrhea R19.7 GERD (gastroesophageal reflux disease) K21.9 Lumbar disc disease M51.9 Narcolepsy G47.419 Pyloric stenosis K31.1 Allergies NSAIDS (Non-Steroidal Anti-Inflamma Adverse Reaction (Verified 01/20/21 05:59) Nausea Home Medications: Ambulatory Orders Medication Instructions Recorded cycloBENZAPRine HCl [Flexeril] 5 mg PO 4X/DAY PRN 08/22/13 Gabapentin 1,200 mg PO TID 04/17/14 traMADol [Ultram] 50 - 100 mg PO Q6H PRN PRN 07/01/16 atorvastatin 40 mg tablet 40 mg PO QHS 06/13/20 Ergocalciferol [Vitamin D] 50,000 units PO QWEEK 06/22/20 Acetaminophen [Tylenol Tablet] 650 mg PO Q6H PRN PRN tab 06/23/20 Famotidine [Pepcid] 20 mg PO BID 01/13/21 Hydrocodone Bitart/Apap 5-325 1 tab PO Q6H PRN PRN 2 Days #8 tab 01/20/21 [P[place]illion 5MG-325MG] Surgical History: Surgical History (Last Reviewed 01/22/21 @ 00:06 by DANNY Manzano) History of appendectomy Z90.49 History of back surgery Z98.890 History of bilateral carpal tunnel release Z98.890 History of bladder repair surgery Z98.890 History of cholecystectomy Z90.49 History of colectomy Z90.49 History of colonoscopy Onset Date: ~2014 Z98.890 History of esophagogastroduodenoscopy (EGD) Onset Date: ~2014 Z98.890 History of hysterectomy with unilateral oophorectomy Z90.710, Z90.721 history of spinal stimulator Surgical History: appendectomy, cholecystectomy, hysterectomy, - - back surgeries, perf bowel,spinal cord stimulator. 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 Denies: Chills, Weight Change HEENT: Denies: Head Aches, Sinus Congestion, Sinus Drainage Cardiovascular: Reports: Chest Pain - Right sided radiating to the back. Denies: Edema, Light Headedness, Palpitations Respiratory: Denies: Cough, Shortness of Breath, Shortness of breath at rest, Sputum production Gastrointestinal: Reports: Abdominal Pain - Pain at surgical sites. Denies: Diarrhea, Nausea, Vomiting Genitourinary: Denies: Dysuria Musculoskeletal: Reports: Back Pain - Right sided radiating from chest. Denies: Joint Pain, Joint Tenderness Skin: Reports: Wounds - Surgical sites dressing dry and intact. Denies: Rash Neurological: Reports: Confusion - Patient unable to identify day of week, Headaches. Denies: Focal weakness, Numbness, Tingling Psychiatric: Denies: Anxiety, Depression, Homicidal Ideations, Suicidal Ideations Hematologic/ Lymphatic: Denies: Easy Bruising, Easy Bleeding Patient Problems: Active and Suspected Problems (Last Reviewed 01/22/21 @ 00:06 by Almaz Ziegler, [employer]) Ventral incisional hernia without obstruction or gangrene (Acute) Left anterior fascicular block (LAFB) (Acute) - Physical Exam Vitals/I&O's: Vital Signs Temp Pulse Resp BP Pulse Ox 101.5 F H 125 H 18 119/76 90 01/21/21 22:49 01/21/21 22:49 01/21/21 22:49 01/21/21 22:49 01/21/21 22:49 Oxygen Flow Rate (L/min) 2 Oxygen Delivery Method Room Air Weight: 147 lb 4.301 oz Body Mass Index (BMI) 26.9 Intake and Output for Last 24 Hours 01/19/21 01/20/21 01/21/21 23:59 23:59 23:59 Intake Total 2710 / 2710 2523.5 / 2523.5 Output Total 850 / 850 1020 / 1020 Balance 1860 / 1860 1503.5 / 1503.5 General: Alert, Cooperative, Disoriented - Unable to identify day of week HEENT: Atraumatic, PERRLA, EOMI, Normocephalic Neck: Supple, No JVD, Negative Carotid Bruits Lungs: Clear to auscultation, Normal air movement Cardiovascular: Regular rate, Normal S1, Normal S2, No murmurs, Tachycardic Abdomen: Bowel Sounds Present, Soft, Hypoactive Bowel Sounds, Tender Extremities: No edema, Capillary Refill Less than 3 Seconds Skin: No rashes, No breakdown, Incision - Surgical sites to abdomen Musculoskeletal: No Tenderness to Palpation of Joints or Extremities Neurological: Cranial nerves II-XII grossly intact Psych/Mental Status: Normal Affect, Appropriate Laboratory Results 01/21/21 05:16: WBC 11.5 H, RBC 3.92 L, Hgb 11.4 L, Hct 35.6 L, MCV 90.8, MCH 29.1, MCHC 32.0, RDW Std Deviation 42.1, RDW Coeff of Barb 12.8, Plt Count 289, MPV 8.9, Immature Gran % (Auto) 0.300, Neut % (Auto) 69.2, Lymph % (Auto) 23.5, [place] % (Auto) 6.6, Eos % (Auto) 0.1, Baso % (Auto) 0.3, Absolute Neuts (auto) 7.9 H, Absolute Lymphs (auto) 2.70, Nucleated RBC % 0 01/21/21 16:42: WBC 11.5 H, RBC 3.98 L, Hgb 11.8 L, Hct 36.3 L, MCV 91.2, MCH 29.6, MCHC 32.5, RDW Std Deviation 42.3, RDW Coeff of Barb 12.7, Plt Count 273, MPV 8.9, Immature Gran % (Auto) 0.300, Neut % (Auto) 74.3 H, Lymph % (Auto) 18.0 L, [place] % (Auto) 6.7, Eos % (Auto) 0.4, Baso % (Auto) 0.3, Absolute Neuts (auto) 8.5 H, Absolute Lymphs (auto) 2.06, Nucleated RBC % 0 01/21/21 16:42: Sodium 137, Potassium 3.6, Chloride 103, Carbon Dioxide 28.0, Anion Gap 6, BUN 13, Creatinine 0.82, Estim Creat Clear Calc 62.75, Est GFR (MDRD) Af Amer 94, Est GFR (MDRD) Non-Af 77, BUN/Creatinine Ratio 15.9, Glucose 92, Calcium 8.4 L, Total Bilirubin 0.80, AST 236 H, ALT 263 H, Alkaline Phosphatase 76, Troponin I < 0.015, Total Protein 6.8, Albumin 3.3, Globulin 3.5, Albumin/Globulin Ratio 0.9, Amylase 16 L, Lipase 60 L 01/21/21 20:05: Troponin I < 0.015 01/21/21 22:24: Troponin I < 0.015 Current Medications Acetaminophen (Acetaminophen 325 Mg Tablet) 650 mg PO Q6H PRN PRN PRN Reason: PAIN 1-10 Last Admin: 01/21/21 22:05 Dose: 650 mg Documented by: Atorvastatin Calcium (Atorvastatin Calcium 40 Mg Tablet) 40 mg PO QHS [facility] Last Admin: 01/21/21 20:54 Dose: 40 mg Documented by: Cyclobenzaprine HCl (Cyclobenzaprine Hcl 10 Mg Tablet) 5 mg PO 4X/DAY PRN PRN Reason: .MUSCLE SPASM Last Admin: 01/21/21 20:54 Dose: 5 mg Documented by: Famotidine (Famotidine 20 Mg Tablet) 20 mg PO BID [facility] Last Admin: 01/21/21 20:54 Dose: 20 mg Documented by: Gabapentin (Gabapentin 600 Mg Tablet) 1,200 mg PO TID [facility] Last Admin: 01/21/21 20:54 Dose: 1,200 mg Documented by: Hydromorphone HCl (Hydromorphone 0.5 Mg/0.5 Ml Syringe) 0.5 - 1 mg IV Q3H PRN PRN PRN Reason: Pain Score 1-10 Last Admin: 01/21/21 20:48 Dose: 1 mg Documented by: Hydromorphone HCl (Hydromorphone 1 Mg/Ml Syringe) 0.5 - 1 mg IV Q3H PRN PRN PRN Reason: Pain Score 1-10 Last Admin: 01/21/21 05:45 Dose: 1 mg Documented by: Lactated Ringer's () 1,000 mls @ 30 mls/hr IV .[id number] [facility] Last Infusion: 01/21/21 23:16 Dose: 0 mls/hr Documented by: Lorazepam (Lorazepam 2 Mg/Ml Syringe) 0.5 - 1 mg IV Q6H PRN PRN PRN Reason: SPASMS Last Admin: 01/21/21 19:37 Dose: 1 mg Documented by: Meclizine HCl (Meclizine 12.5 Mg Tablet) 12.5 mg PO DAILY PRN PRN PRN Reason: Vertigo Last Admin: 01/21/21 13:19 Dose: 12.5 mg Documented by: Nutritional Formula (Lactose Free) (Ensure Clear 120 Ml Liquid) 120 ml PO TIDCM [facility] Last Admin: 01/21/21 17:59 Dose: Not Given Documented by: Ondansetron HCl (Ondansetron 4 Mg/2 Ml Vial) 4 mg IV Q8H PRN PRN PRN Reason: NAUSEA Last Admin: 01/21/21 14:03 Dose: 4 mg Documented by: Ondansetron HCl (Ondansetron 8 Mg Tablet) 8 mg PO Q8H PRN PRN PRN Reason: NAUSEA Oxycodone HCl (Oxycodone 5 Mg Tablet) 5 mg PO Q4H PRN PRN PRN Reason: Pain Score 6-10 Sodium Chloride (0.9% Saline Lock 10 Ml Syringe) 10 - 40 ml IV UD PRN PRN Reason: SALINE FLUSH Last Admin: 01/21/21 17:59 Dose: 20 ml Documented by: Tramadol HCl (Tramadol 50 Mg Tablet) 50 - 100 mg PO Q6H PRN PRN PRN Reason: Pain Score 1-5 Last Admin: 01/21/21 11:19 Dose: 50 mg Documented by: Assessment/Plan All Active Problems (Last Reviewed 01/22/21 @ 00:06 by Almaz Ziegler, [employer]IDENT [employer]) Ventral incisional hernia without obstruction or gangrene (Acute) Left anterior fascicular block (LAFB) (Acute) Abnormal EKG (Acute) 1. Fever of unknown origin?blood cultures, UA, and urine culture, MRSA nasal swab, COVID-19 rapid antigen swab ordered. Lactic acid ordered. Chest x-ray completed. CTA chest with and without contrast ordered to rule out PE. Patient received one-time dose Zosyn IV, will start on ceftriaxone and Flagyl for empiric coverage pending culture results. 2. Ventral incisional hernia with repair-postop day 2. Surgical sites are without redness, warmth or swelling. A Gastrografin swallow will be performed with CTA chest at Dr. Arellano's request. 3. Chronic pain with spinal stimulator?stable. Continue gabapentin. 4. Hyperlipidemia-stable continue atorvastatin. 5. Gastroesophageal reflux disease-continue with famotidine. 6. Right bundle esther block-stable. DVT prophylaxis?bilateral SCDs. This patient was seen by DANNY Manzano under the supervision of Dr. Quiñones. <Kendall Quiñones - Last Filed: 01/22/21 01:47> Reason for Consult History of Present Illness: The patient is a 55 year old F [] Past Medical History Medical History: Medical History (Last Reviewed 01/22/21 @ 00:06 by DANNY Manzano) Ventral incisional hernia without obstruction or gangrene (Acute) K43.2 Hyperlipidemia (Chronic) E78.5 Left anterior fascicular block (LAFB) (Acute) I44.4 RBBB (right bundle branch block) (Chronic) I45.10 Abnormal EKG (Acute) R94.31 Gastroesophageal reflux disease (Chronic) K21.9 Positional vertigo (Chronic) H81.10 Anxiety and depression F41.9, F32.9 Back problem M53.9 Diarrhea R19.7 GERD (gastroesophageal reflux disease) K21.9 Lumbar disc disease M51.9 Narcolepsy G47.419 Pyloric stenosis K31.1 Allergies NSAIDS (Non-Steroidal Anti-Inflamma Adverse Reaction (Verified 01/20/21 05:59) Nausea Surgical History: Surgical History (Last Reviewed 01/22/21 @ 00:06 by DANNY Manzano) History of appendectomy Z90.49 History of back surgery Z98.890 History of bilateral carpal tunnel release Z98.890 History of bladder repair surgery Z98.890 History of cholecystectomy Z90.49 History of colectomy Z90.49 History of colonoscopy Onset Date: ~2014 Z98.890 History of esophagogastroduodenoscopy (EGD) Onset Date: ~2014 Z98. History of hysterectomy with unilateral oophorectomy Z90.710, Z90.721 history of spinal stimulator - *Family History Paternal Family History: Family History (Last Reviewed 01/22/21 @ 00:07 by DANNY Manzano) Mother Breast cancer Diabetes Hypertension Grandmother Myocardial infarction, Onset Age: 68 Maternal Family History: Family History (Last Reviewed 01/22/21 @ 00:07 by Almaz Ziegler NP-C) Mother Breast cancer Diabetes Hypertension Grandmother Myocardial infarction, Onset Age: 68 - Physical Exam Vitals/I&O's: Vital Signs Temp Pulse Resp BP Pulse Ox 99.2 F H 117 H 18 109/68 93 01/22/21 00:15 01/22/21 00:15 01/22/21 00:15 01/22/21 00:15 01/22/21 00:15 Oxygen Flow Rate (L/min) 2 Oxygen Delivery Method Room Air Weight: 66.8 kg Body Mass Index (BMI) 26.9 Intake and Output for Last 24 Hours 01/20/21 01/21/21 01/22/21 23:59 23:59 23:59 Intake Total 2710 / 2710 2573.5 / 2573.5 17.5 / 17.5 Output Total 850 / 850 1020 / 1020 Balance 1860 / 1860 1553.5 / 1553.5 17.5 / 17.5 Laboratory Results 01/21/21 05:16: WBC 11.5 H, RBC 3.92 L, Hgb 11.4 L, Hct 35.6 L, MCV 90.8, MCH 29.1, MCHC 32.0, RDW Std Deviation 42.1, RDW Coeff of Barb 12.8, Plt Count 289, MPV 8.9, Immature Gran % (Auto) 0.300, Neut % (Auto) 69.2, Lymph % (Auto) 23.5, [place] % (Auto) 6.6, Eos % (Auto) 0.1, Baso % (Auto) 0.3, Absolute Neuts (auto) 7.9 H, Absolute Lymphs (auto) 2.70, Nucleated RBC % 0 01/21/21 16:42: WBC 11.5 H, RBC 3.98 L, Hgb 11.8 L, Hct 36.3 L, MCV 91.2, MCH 29.6, MCHC 32.5, RDW Std Deviation 42.3, RDW Coeff of Barb 12.7, Plt Count 273, MPV 8.9, Immature Gran % (Auto) 0.300, Neut % (Auto) 74.3 H, Lymph % (Auto) 18.0 L, [place] % (Auto) 6.7, Eos % (Auto) 0.4, Baso % (Auto) 0.3, Absolute Neuts (auto) 8.5 H, Absolute Lymphs (auto) 2.06, Nucleated RBC % 0 01/21/21 16:42: Sodium 137, Potassium 3.6, Chloride 103, Carbon Dioxide 28.0, Anion Gap 6, BUN 13, Creatinine 0.82, Estim Creat Clear Calc 62.75, Est GFR (MDRD) Af Amer 94, Est GFR (MDRD) Non-Af 77, BUN/Creatinine Ratio 15.9, Glucose 92, Calcium 8.4 L, Total Bilirubin 0.80, AST 236 H, ALT 263 H, Alkaline Phosphatase 76, Troponin I < 0.015, Total Protein 6.8, Albumin 3.3, Globulin 3.5, Albumin/Globulin Ratio 0.9, Amylase 16 L, Lipase 60 L 01/21/21 20:05: Troponin I < 0.015 01/21/21 22:24: Troponin I < 0.015 01/22/21 00:30: Lactic Acid 0.7 01/22/21 00:55: Urine Color Yellow, Urine Clarity Clear, Urine pH 6.5, Ur Specific [place] 1.010, Urine Protein Negative, Urine Glucose (UA) Normal, Urine Ketones Negative, Urine Occult Blood 10 H, Urine Nitrite Positive H, Urine Bilirubin Negative, Urine Urobilinogen Normal, Ur Leukocyte Esterase 25 H, Urine RBC 0-5 SEEN, Urine WBC 0-5 SEEN, Ur Squamous Epith Cells 0 SEEN, Urine Bacteria RARE, Urine Mucus 0 SEEN Current Medications Acetaminophen (Acetaminophen 325 Mg Tablet) 650 mg PO Q6H PRN PRN PRN Reason: PAIN 1-10 Last Admin: 01/21/21 22:05 Dose: 650 mg Documented by: Atorvastatin Calcium (Atorvastatin Calcium 40 Mg Tablet) 40 mg PO QHS [facility] Last Admin: 01/21/21 20:54 Dose: 40 mg Documented by: Cyclobenzaprine HCl (Cyclobenzaprine Hcl 10 Mg Tablet) 5 mg PO 4X/DAY PRN PRN Reason: .MUSCLE SPASM Last Admin: 01/21/21 20:54 Dose: 5 mg Documented by: Famotidine (Famotidine 20 Mg Tablet) 20 mg PO BID [facility] Last Admin: 01/21/21 20:54 Dose: 20 mg Documented by: Gabapentin (Gabapentin 600 Mg Tablet) 1,200 mg PO TID [facility] Last Admin: 01/21/21 20:54 Dose: 1,200 mg Documented by: Hydromorphone HCl (Hydromorphone 0.5 Mg/0.5 Ml Syringe) 0.5 - 1 mg IV Q3H PRN PRN PRN Reason: Pain Score 1-10 Last Admin: 01/21/21 20:48 Dose: 1 mg Documented by: Hydromorphone HCl (Hydromorphone 1 Mg/Ml Syringe) 0.5 - 1 mg IV Q3H PRN PRN PRN Reason: Pain Score 1-10 Last Admin: 01/21/21 05:45 Dose: 1 mg Documented by: Lactated Ringer's () 1,000 mls @ 30 mls/hr IV .[id number] [facility] Last Infusion: 01/22/21 00:50 Dose: 0 mls/hr Documented by: Vancomycin IV Pharmacy to Dose (1 ea/ Sodium Chloride) 500 mls @ 250 mls/hr IV X1 PRN; Protocol PRN Reason: Rx to Dose Ceftriaxone Sodium 2 gm/ (Sodium Chloride) 50 mls @ 100 mls/hr IV Q24 [facility] Metronidazole (Flagyl) 500 mg in 100 mls @ 100 mls/hr IV Q8 [facility] Lorazepam (Lorazepam 2 Mg/Ml Syringe) 0.5 - 1 mg IV Q6H PRN PRN PRN Reason: SPASMS Last Admin: 01/21/21 19:37 Dose: 1 mg Documented by: Meclizine HCl (Meclizine 12.5 Mg Tablet) 12.5 mg PO DAILY PRN PRN PRN Reason: Vertigo Last Admin: 01/21/21 13:19 Dose: 12.5 mg Documented by: Nutritional Formula (Lactose Free) (Ensure Clear 120 Ml Liquid) 120 ml PO TIDCM [facility] Last Admin: 01/21/21 17:59 Dose: Not Given Documented by: Ondansetron HCl (Ondansetron 4 Mg/2 Ml Vial) 4 mg IV Q8H PRN PRN PRN Reason: NAUSEA Last Admin: 01/21/21 14:03 Dose: 4 mg Documented by: Ondansetron HCl (Ondansetron 8 Mg Tablet) 8 mg PO Q8H PRN PRN PRN Reason: NAUSEA Oxycodone HCl (Oxycodone 5 Mg Tablet) 5 mg PO Q4H PRN PRN PRN Reason: Pain Score 6-10 Sodium Chloride (0.9% Saline Lock 10 Ml Syringe) 10 - 40 ml IV UD PRN PRN Reason: SALINE FLUSH Last Admin: 01/21/21 17:59 Dose: 20 ml Documented by: Tramadol HCl (Tramadol 50 Mg Tablet) 50 - 100 mg PO Q6H PRN PRN PRN Reason: Pain Score 1-5 Last Admin: 01/21/21 11:19 Dose: 50 mg Documented by: Assessment/Plan Patient was seen and examined independently. The case was discussed with Almaz Lopez, nurse practitioner. Patient reports difficulty with her cognition. She reports malaise. She reports right chest wall spasms and abdominal pain. Alert and oriented x3. Lung clear to auscultate. Heart sounds S1-S2 present Abdomen bowel sounds are present; tender. Multiple dry dressing in place. Acute febrile illness Antibiotics and Diagnostic test as above. On incentive spirometer. Urinalysis is not impressive. Follow urine culture and blood culture. Inpatient E&M: 45619 Subs Hosp L2
[2021-01-22] VITALS (7 sets, daily range): BP systolic 106–119; BP diastolic 67–82; PULSE 92–117; RESP 18–24; TEMP 36.8–37.3; O2SAT 93–98
--- NOTE | 2021-01-22 00:27 | CT_ITS ---
We are attempting to reach an attending provider to discuss findings. An addendum with communication details will be sent when the communication is complete. STUDY: CTA CHEST REASON FOR EXAM: Female, 55 years old. chest pain RADIATION DOSAGE (If Supplied By Facility): CTDIvol = ( 11.98 ) mGy, DLP = ( 418.23 ) mGycm TECHNIQUE: The examination was performed with the intravenous administration of IV 100mL Isovue-370. Post-processing of the angiographic images was performed, with multiplanar reformation and 3D reconstruction. Individualized dose optimization techniques were used for this CT. COMPARISON: Chest x-ray 01/21/2021. 06/22/2020 FINDINGS: Small right apical pneumothorax. Minor atelectasis right upper lobe posteriorly. Compression of dependent bilateral lower lobe parenchyma right greater than left. Small lateral right pleural effusions. Normal enhancement of the main pulmonary artery and right and left pulmonary arteries. Normal enhancement of the bilateral peripheral pulmonary arteries. There is no demonstrated pulmonary embolism. Normal thoracic aorta and visualized great vessels. There is no demonstrated aortic dissection. Normal heart and pericardium. Tiny pockets of air anterior to the heart in the lower mediastinum. Normal hilar regions. Normal visualized trachea and bronchi. The lungs are under expanded. Volume, mild elevation right hemidiaphragm, mild compression of the dependent parenchyma. Normal chest wall structures. Normal osseous structures. Streak artifact caused by neurostimulator device. Prior cholecystectomy. Liver is low attenuated. The gastric fundus is folded, not clearly visualized. Oral contrast within the esophagus and stomach. Hyperattenuation along the gastroesophageal junction image 45-62 of series 2, image 152 series 601, image 169-[address]/CTA Chest W/WO Contrast IMPRESSION: No demonstrated pulmonary embolism , aneurysm, leak or arterial dissection. Hyperattenuation at the gastroesophageal junction away from the esophagus may be due to surgical changes. Contrast extravasation is not excluded. Right small apical pneumothorax, tiny area of pneumomediastinum. Compression of bilateral lower lobe parenchyma and small effusions. Indeterminate gastroesophageal junction/gastric fundus. Postsurgical changes in the upper abdomen with cholecystectomy, liver is a low attenuated possible hepatic steatosis. Electronically Signed: Bianca Puentes MD at 2:00 EST , Service support ,
[2021-01-22 01:02] LABS: Mucous, Urine 0 SEEN /hpf (<or=2+); Squamous Epithelial Cells - UA 0 SEEN /hpf (5-10)
[2021-01-22 01:04] LABS: Color, Urine Yellow (Yellow); Glucose, Dipstick Normal (Normal); Ketone-Dipstick Negative (Negative); Leukocyte Esterase-Dipstick 25 /ul (Negative); Nitrite-Dipstick Positive (Negative); Occult Blood-Urine 10 /ul (Negative); Protein-Dipstick Negative (Negative); Urine Bilirubin Dipstick Negative (Negative); Urine Clarity Clear (Clear); Urine Urobilinogen Normal (Normal); Urine pH 6.5 (5.0 - 8.0)
[2021-01-22 01:05] LABS: Lactic Acid 0.7 mmol/L (0.4-1.9)
[2021-01-22 01:10] LABS: Bacteria RARE /hpf (None Seen); Red Blood Cells-Urine 0-5 SEEN /hpf (0-5); White Blood Cells 0-5 SEEN /hpf (0-5)
--- NOTE | 2021-01-22 01:18 | NURSING ---
Dr Quiñones assessing pt at bedside currently.
--- NOTE | 2021-01-22 03:03 | PCM.RX.CS ---
Consult Pharmacy has been consulted to manage selected antiobiotic: Vancomycin Type of Consult: New start Labs: Sodium 137 mmol/L (136-145) 01/21/21 16:42 Potassium 3.6 mmol/L (3.5-5.1) 01/21/21 16:42 Chloride 103 mmol/L (98-107) 01/21/21 16:42 Carbon Dioxide 28.0 mmol/L (21.0-32.0) 01/21/21 16:42 Anion Gap 6 (5-15) 01/21/21 16:42 BUN 13 mg/dL (7-18) 01/21/21 16:42 Creatinine 0.82 mg/dL (0.55-1.02) 01/21/21 16:42 Est GFR (MDRD) Af Amer 94 mL/min (>60) 01/21/21 16:42 Est GFR (MDRD) Non-Af 77 mL/min (>60) 01/21/21 16:42 BUN/Creatinine Ratio 15.9 RATIO (10-20) 01/21/21 16:42 Glucose 92 mg/dL (74-106) 01/21/21 16:42 Microbiology: Microbiology 01/22/21 01:35 Mucosa - Nose SARS-CoV-2 Antigen (Rapid) - Final 01/17/21 08:15 Interface Orders SARS-CoV-2 Antigen (Rapid) - Final Weight used for dosin.8 kg Estimated Creatinine Clearance: 71 Goal Trough: 15-20 mcg/mL Pharmacy Plan for Drug Dosing: Pharmacy Service will continue to monitor and adjust dosing as required. Medications Vancomycin HCl (Vancomycin) 1,000 mg in 200 mls @ 200 mls/hr IV Q12H [facility] Discontinued Medications Vancomycin HCl 1,750 mg/ (Sodium Chloride) 535 mls @ 250 mls/hr IV X1 ONE Stop: 01/22/21 03:08 Last Admin: 01/22/21 01:32 Dose: Not Given Documented by: Follow-Up Labs: Trough Vancomycin Labs to be done on [date and time ordered]: 01/23 @ 1300
[2021-01-22 03:09] LABS: M R Staph aureus DNA By PCR Negative (Negative); Probe Check PASS; Specimen Processing Control PASS
[2021-01-22] MEDS: 0.9% Saline Lock 10 ML Syringe IV ×2 (04:57→08:04)
[2021-01-22] MEDS: Gabapentin 600 MG Tablet 1200 MG PO ×2 (05:01→12:13)
[2021-01-22] MEDS: Acetaminophen 325 MG Tablet 650 MG PO ×2 (05:02→11:06)
--- NOTE | 2021-01-22 05:33 | PCM.PN.SRG ---
Patient Problems: Active and Suspected Problems (Last Reviewed 01/22/21 @ 00:06 by Almaz Ziegler, SELF DEFENSE INSTRUCTOR-C) Ventral incisional hernia without obstruction or gangrene (Acute) Left anterior fascicular block (LAFB) (Acute) Subjective: Patient notes that she is feeling okay. Still complaining of right chest discomfort. As I watched she was only able to pull 900 cc on her incentive spirometer. She admits to lying in bed now for essentially 2 days. Although she has ambulated some she has not spent any significant time in a chair and is spent most of the last 2 days lying supine. - Physical Exam Vitals/I&O's: Vital Signs Temp Pulse Resp BP Pulse Ox 98.9 F 109 H 18 106/67 96 01/22/21 02:14 01/22/21 02:14 01/22/21 02:14 01/22/21 02:14 01/22/21 02:14 Oxygen Flow Rate (L/min) 2 Oxygen Delivery Method Nasal Cannula Weight: 147 lb 4.301 oz Body Mass Index (BMI) 26.9 Intake and Output for Last 24 Hours 01/20/21 01/21/21 01/22/21 23:59 23:59 23:59 Intake Total 2710 / 2710 2573.5 / 2573.5 67.5 / 67.5 Output Total 850 / 850 1020 / 1020 Balance 1860 / 1860 1553.5 / 1553.5 67.5 / 67.5 Lungs: - - Poor respiratory excursion, clear in the apices Abdomen: Bowel Sounds Present, Non Tender Microbiology Past 72 Hours 01/22/21 01:35 Mucosa - Nose SARS-CoV-2 Antigen (Rapid) - Final Laboratory Results 01/21/21 16:42: WBC 11.5 H, RBC 3.98 L, Hgb 11.8 L, Hct 36.3 L, MCV 91.2, MCH 29.6, MCHC 32.5, RDW Std Deviation 42.3, RDW Coeff of Barb 12.7, Plt Count 273, MPV 8.9, Immature Gran % (Auto) 0.300, Neut % (Auto) 74.3 H, Lymph % (Auto) 18.0 L, [place] % (Auto) 6.7, Eos % (Auto) 0.4, Baso % (Auto) 0.3, Absolute Neuts (auto) 8.5 H, Absolute Lymphs (auto) 2.06, Nucleated RBC % 0 01/21/21 16:42: Sodium 137, Potassium 3.6, Chloride 103, Carbon Dioxide 28.0, Anion Gap 6, BUN 13, Creatinine 0.82, Estim Creat Clear Calc 62.75, Est GFR (MDRD) Af Amer 94, Est GFR (MDRD) Non-Af 77, BUN/Creatinine Ratio 15.9, Glucose 92, Calcium 8.4 L, Total Bilirubin 0.80, AST 236 H, ALT 263 H, Alkaline Phosphatase 76, Troponin I < 0.015, Total Protein 6.8, Albumin 3.3, Globulin 3.5, Albumin/Globulin Ratio 0.9, Amylase 16 L, Lipase 60 L 01/21/21 20:05: Troponin I < 0.015 01/21/21 22:24: Troponin I < 0.015 01/22/21 00:30: Lactic Acid 0.7 01/22/21 00:55: Urine Color Yellow, Urine Clarity Clear, Urine pH 6.5, Ur Specific [place] 1.010, Urine Protein Negative, Urine Glucose (UA) Normal, Urine Ketones Negative, Urine Occult Blood 10 H, Urine Nitrite Positive H, Urine Bilirubin Negative, Urine Urobilinogen Normal, Ur Leukocyte Esterase 25 H, Urine RBC 0-5 SEEN, Urine WBC 0-5 SEEN, Ur Squamous Epith Cells 0 SEEN, Urine Bacteria RARE, Urine Mucus 0 SEEN 01/22/21 01:35: MRSA (PCR) Negative Current Medications Acetaminophen (Acetaminophen 325 Mg Tablet) 650 mg PO Q6H PRN PRN PRN Reason: PAIN 1-10 Last Admin: 01/22/21 05:02 Dose: 650 mg Documented by: Atorvastatin Calcium (Atorvastatin Calcium 40 Mg Tablet) 40 mg PO QHS [facility] Last Admin: 01/21/21 20:54 Dose: 40 mg Documented by: Cyclobenzaprine HCl (Cyclobenzaprine Hcl 10 Mg Tablet) 5 mg PO 4X/DAY PRN PRN Reason: .MUSCLE SPASM Last Admin: 01/21/21 20:54 Dose: 5 mg Documented by: Famotidine (Famotidine 20 Mg Tablet) 20 mg PO BID [facility] Last Admin: 01/21/21 20:54 Dose: 20 mg Documented by: Gabapentin (Gabapentin 600 Mg Tablet) 1,200 mg PO TID [facility] Last Admin: 01/22/21 05:01 Dose: 1,200 mg Documented by: Hydromorphone HCl (Hydromorphone 0.5 Mg/0.5 Ml Syringe) 0.5 - 1 mg IV Q3H PRN PRN PRN Reason: Pain Score 1-10 Last Admin: 01/21/21 20:48 Dose: 1 mg Documented by: Hydromorphone HCl (Hydromorphone 1 Mg/Ml Syringe) 0.5 - 1 mg IV Q3H PRN PRN PRN Reason: Pain Score 1-10 Last Admin: 01/21/21 05:45 Dose: 1 mg Documented by: Lactated Ringer's () 1,000 mls @ 30 mls/hr IV .[id number] [facility] Last Infusion: 01/22/21 04:57 Dose: 30 mls/hr Documented by: Ceftriaxone Sodium 2 gm/ (Sodium Chloride) 50 mls @ 100 mls/hr IV Q24 [facility] Metronidazole (Flagyl) 500 mg in 100 mls @ 100 mls/hr IV Q8 [facility] Lorazepam (Lorazepam 2 Mg/Ml Syringe) 0.5 - 1 mg IV Q6H PRN PRN PRN Reason: SPASMS Last Admin: 01/21/21 19:37 Dose: 1 mg Documented by: Meclizine HCl (Meclizine 12.5 Mg Tablet) 12.5 mg PO DAILY PRN PRN PRN Reason: Vertigo Last Admin: 01/21/21 13:19 Dose: 12.5 mg Documented by: Nutritional Formula (Lactose Free) (Ensure Clear 120 Ml Liquid) 120 ml PO TIDCM [facility] Last Admin: 01/21/21 17:59 Dose: Not Given Documented by: Ondansetron HCl (Ondansetron 4 Mg/2 Ml Vial) 4 mg IV Q8H PRN PRN PRN Reason: NAUSEA Last Admin: 01/21/21 14:03 Dose: 4 mg Documented by: Ondansetron HCl (Ondansetron 8 Mg Tablet) 8 mg PO Q8H PRN PRN PRN Reason: NAUSEA Oxycodone HCl (Oxycodone 5 Mg Tablet) 5 mg PO Q4H PRN PRN PRN Reason: Pain Score 6-10 Sodium Chloride (0.9% Saline Lock 10 Ml Syringe) 10 - 40 ml IV UD PRN PRN Reason: SALINE FLUSH Last Admin: 01/22/21 04:57 Dose: 30 ml Documented by: Tramadol HCl (Tramadol 50 Mg Tablet) 50 - 100 mg PO Q6H PRN PRN PRN Reason: Pain Score 1-5 Last Admin: 01/21/21 11:19 Dose: 50 mg Documented by: Medical Necessity - Tobacco Use Smoking Status: Never smoker Assessment/Plan All Active Problems (Last Reviewed 01/22/21 @ 00:06 by Almaz Ziegler, SELF DEFENSE INSTRUCTOR-C) Ventral incisional hernia without obstruction or gangrene (Acute) Left anterior fascicular block (LAFB) (Acute) Abnormal EKG (Acute) Reviewed CTA findings. No signs for leak. No signs of pulmonary embolus. findings are consistent with vascular compression and pulmonary atelectasis secondary to patient inactivity. Small amount of air in the mediastinum tiny right pneumothorax all consistent with a dissection. This would be carbon dioxide will resolve. At this point I am not seeing any signs of bacterial infection. We will recheck a white blood cell count. If normal then will recommend ceasing IV antibiotics to avoid antibiotic complications. I have vigorously encouraged the patient that incentive spirometer mobilization sitting in a chair and minimal bed rest is what is required. Hopeful discharge later today pending patient's ability. She must be vigorously encouraged to work on her her incentive spirometer as her current inspiration effort is minimal. Roddy Arellano M.D., F.A.C.S.
[2021-01-22] MEDS: metroNIDAZOLE 500 MG/100 ML BAG 100 MG IV (06:06)
[2021-01-22] MEDS: oxyCODONE 5 MG Tablet PO ×3 (06:10→15:27)
[2021-01-22] MEDS: Enoxaparin 40 MG/0.4 ML Syringe SC (06:10)
[2021-01-22 06:52] LABS: Absolute Lymphocyte Count 1.36 X10^3/uL (0.83-4.51); Basophil# 0.03 X10^3/uL; Basophil% 0.3 % (0-1); Hematocrit 37.3 % (37-47); Hemoglobin 11.8 g/dL (12.0-15.0); Lymphocyte # 1.36 X10^3/ul (4.0); Lymphocyte % 13.3 % (19-41); Mean Corp Hgb Conc 31.6 g/dL (32-36); Mean Corpuscular Hgb 28.9 pg (27.0-32.0); Mean Corpuscular Volume 91.4 fL (81-99); Mean Platelet Vol. 8.9 fl (6.2-12.0); Monocyte# 0.76 X10^3/uL; Monocyte% 7.4 % (0-10); NRBC Flagged by Analyzer 0 % (0-5); Neutrophil # 7.99 X10^3/uL (2.7-7.7); Neutrophil % 77.8 % (47-70); Platelet Count 264 K/mm3 (150-450); RBC Distribution Width CV 12.5 % (11.6-14.6); Red Blood Count 4.08 M/mm3 (4.2-5.4); White Blood Count 10.3 K/mm3 (4.4-11.0)
[2021-01-22] MEDS: Ensure Clear 120 ML Liquid PO ×2 (07:58→11:07)
[2021-01-22] MEDS: Famotidine 20 MG Tablet PO (08:04)
--- NOTE | 2021-01-22 08:28 | PCM.PROGNOTE ---
Patient Problems: Active and Suspected Problems (Last Updated 01/22/21 @ 08:[address] Augustine Austin MD) Ventral incisional hernia without obstruction or gangrene (Acute) Subjective: Chief complaint: Follow-up after consultation for postoperative fever, leukocytosis and chest pain. Patient seen and examined. No acute events overnight. She is still complaining of chest pain, right parasternal chest pain, dull aching pain, aggravates with taking a deep breath. She mentioned that her breathing is getting better. She has been having spikes of fever last night but this morning, she is afebrile. Blood pressure and heart rate are stable, pulse ox is 97% on 2 L. - Physical Exam Vitals/I&O's: Vital Signs Temp Pulse Resp BP Pulse Ox 98.7 F 92 20 H 119/77 97 01/22/21 08:01 01/22/21 08:01 01/22/21 08:01 01/22/21 08:01 01/22/21 08:01 Oxygen Flow Rate (L/min) 2 Oxygen Delivery Method Nasal Cannula Weight: 147 lb 4.301 oz Body Mass Index (BMI) 26.9 Intake and Output for Last 24 Hours 01/20/21 01/21/21 01/22/21 23:59 23:59 23:59 Intake Total 2710 / 2710 2573.5 / 2573.5 461.0 / 461.0 Output Total 850 / 850 1020 / 1020 900 / 900 Balance 1860 / 1860 1553.5 / 1553.5 -439.0 / -439.0 General: Alert, Oriented x3, Cooperative, - - Minimally short of breath. HEENT: Atraumatic, PERRLA, EOMI, Normocephalic Oral: Moist Mucosa, No Gingival or Mucosal Lesions/ Ulcerations Neck: Supple, No JVD, Negative Carotid Bruits, Trachea Midline, Thyroid Normal Size and Texture Lungs: Clear to auscultation, No rhonchi, No wheeze, No rales, Diminished Cardiovascular: Regular rate, Regular Rhythm, Normal S1, Normal S2, PMI Normal Abdomen: Bowel Sounds Present, Soft, Non-Distended, No Hepato-splenomegaly, Tender - Minimal tenderness. Extremities: No clubbing, No cyanosis, No edema Skin: No rashes, No breakdown Lymphatic: No Cervical, Supraclavicular, or Inguinal Adenopathy Neurological: Cranial nerves II-XII grossly intact, Motor Exam 5/5 strength throughout Psych/Mental Status: Normal Affect, Appropriate, Alert and oriented to time, place, person, mood and affect Microbiology Past 72 Hours 01/22/21 01:35 Mucosa - Nose SARS-CoV-2 Antigen (Rapid) - Final Laboratory Results 01/21/21 16:42: WBC 11.5 H, RBC 3.98 L, Hgb 11.8 L, Hct 36.3 L, MCV 91.2, MCH 29.6, MCHC 32.5, RDW Std Deviation 42.3, RDW Coeff of Barb 12.7, Plt Count 273, MPV 8.9, Immature Gran % (Auto) 0.300, Neut % (Auto) 74.3 H, Lymph % (Auto) 18.0 L, [place] % (Auto) 6.7, Eos % (Auto) 0.4, Baso % (Auto) 0.3, Absolute Neuts (auto) 8.5 H, Absolute Lymphs (auto) 2.06, Nucleated RBC % 0 01/21/21 16:42: Sodium 137, Potassium 3.6, Chloride 103, Carbon Dioxide 28.0, Anion Gap 6, BUN 13, Creatinine 0.82, Estim Creat Clear Calc 62.75, Est GFR (MDRD) Af Amer 94, Est GFR (MDRD) Non-Af 77, BUN/Creatinine Ratio 15.9, Glucose 92, Calcium 8.4 L, Total Bilirubin 0.80, AST 236 H, ALT 263 H, Alkaline Phosphatase 76, Troponin I < 0.015, Total Protein 6.8, Albumin 3.3, Globulin 3.5, Albumin/Globulin Ratio 0.9, Amylase 16 L, Lipase 60 L 01/21/21 20:05: Troponin I < 0.015 01/21/21 22:24: Troponin I < 0.015 01/22/21 00:30: Lactic Acid 0.7 01/22/21 00:55: Urine Color Yellow, Urine Clarity Clear, Urine pH 6.5, Ur Specific [place] 1.010, Urine Protein Negative, Urine Glucose (UA) Normal, Urine Ketones Negative, Urine Occult Blood 10 H, Urine Nitrite Positive H, Urine Bilirubin Negative, Urine Urobilinogen Normal, Ur Leukocyte Esterase 25 H, Urine RBC 0-5 SEEN, Urine WBC 0-5 SEEN, Ur Squamous Epith Cells 0 SEEN, Urine Bacteria RARE, Urine Mucus 0 SEEN 01/22/21 01:35: MRSA (PCR) Negative 01/22/21 05:55: WBC 10.3, RBC 4.08 L, Hgb 11.8 L, Hct 37.3, MCV 91.4, MCH 28.9, MCHC 31.6 L, RDW Std Deviation 42.0, RDW Coeff of Barb 12.5, Plt Count 264, MPV 8.9, Immature Gran % (Auto) 0.200, Neut % (Auto) 77.8 H, Lymph % (Auto) 13.3 L, [place] % (Auto) 7.4, Eos % (Auto) 1.0, Baso % (Auto) 0.3, Absolute Neuts (auto) 8.0 H, Absolute Lymphs (auto) 1.36, Nucleated RBC % 0 Clinical Impression(s) from Imaging Studies Chest X-Ray 01/21/21 16:32 IMPRESSION: Posterior left lower lobe airspace consolidation and infiltrates. There may be small left pleural effusion. The right lung is clear. Electronically Signed: Kim Boo MD at 16:40 EST Tel , Service support , Chest CTA 01/22/21 00:27 IMPRESSION: No demonstrated pulmonary embolism , aneurysm, leak or arterial dissection. Hyperattenuation at the gastroesophageal junction away from the esophagus may be due to surgical changes. Contrast extravasation is not excluded. Right small apical pneumothorax, tiny area of pneumomediastinum. Compression of bilateral lower lobe parenchyma and small effusions. Indeterminate gastroesophageal junction/gastric fundus. Postsurgical changes in the upper abdomen with cholecystectomy, liver is a low attenuated possible hepatic steatosis. Electronically Signed: Bianca Puentes MD at 2:00 EST , Service support , ADDENDUM: 01/22/21 0209 IMPRESSION: No demonstrated pulmonary embolism , aneurysm, leak or arterial dissection. Hyperattenuation at the gastroesophageal junction away from the esophagus may be due to surgical changes. Contrast extravasation is not excluded. Right small apical pneumothorax, tiny area of pneumomediastinum. Compression of bilateral lower lobe parenchyma and small effusions. Indeterminate gastroesophageal junction/gastric fundus. Postsurgical changes in the upper abdomen with cholecystectomy, liver is a low attenuated possible hepatic steatosis. N.B. : The above information has been verbally conveyed by Bianca Puentes MD to Ngozi Curiel RN, on 01/22/2021 02:02:59 (ET). Electronically Signed: Bianca Puentes MD at 2:00 EST , Service support , Current Medications Acetaminophen (Acetaminophen 325 Mg Tablet) 650 mg PO Q6H PRN PRN PRN Reason: PAIN 1-10 Last Admin: 01/22/21 05:02 Dose: 650 mg Documented by: Atorvastatin Calcium (Atorvastatin Calcium 40 Mg Tablet) 40 mg PO QHS [facility] Last Admin: 01/21/21 20:54 Dose: 40 mg Documented by: Cyclobenzaprine HCl (Cyclobenzaprine Hcl 10 Mg Tablet) 5 mg PO 4X/DAY PRN PRN Reason: .MUSCLE SPASM Last Admin: 01/21/21 20:54 Dose: 5 mg Documented by: Enoxaparin Sodium (Enoxaparin 40 Mg/0.4 Ml Syringe) 40 mg SC DAILY@0600 [facility] Last Admin: 01/22/21 06:10 Dose: 40 mg Documented by: Famotidine (Famotidine 20 Mg Tablet) 20 mg PO BID [facility] Last Admin: 01/22/21 08:04 Dose: 20 mg Documented by: Gabapentin (Gabapentin 600 Mg Tablet) 1,200 mg PO TID [facility] Last Admin: 01/22/21 05:01 Dose: 1,200 mg Documented by: Hydromorphone HCl (Hydromorphone 0.5 Mg/0.5 Ml Syringe) 0.5 - 1 mg IV Q3H PRN PRN PRN Reason: Pain Score 1-10 Last Admin: 01/21/21 20:48 Dose: 1 mg Documented by: Hydromorphone HCl (Hydromorphone 1 Mg/Ml Syringe) 0.5 - 1 mg IV Q3H PRN PRN PRN Reason: Pain Score 1-10 Last Admin: 01/21/21 05:45 Dose: 1 mg Documented by: Lactated Ringer's () 1,000 mls @ 30 mls/hr IV .[id number] [facility] Last Infusion: 01/22/21 08:04 Dose: 0 mls/hr Documented by: Lorazepam (Lorazepam 2 Mg/Ml Syringe) 0.5 - 1 mg IV Q6H PRN PRN PRN Reason: SPASMS Last Admin: 01/21/21 19:37 Dose: 1 mg Documented by: Meclizine HCl (Meclizine 12.5 Mg Tablet) 12.5 mg PO DAILY PRN PRN PRN Reason: Vertigo Last Admin: 01/21/21 13:19 Dose: 12.5 mg Documented by: Nutritional Formula (Lactose Free) (Ensure Clear 120 Ml Liquid) 120 ml PO TIDCM [facility] Last Admin: 01/22/21 07:58 Dose: 120 ml Documented by: Ondansetron HCl (Ondansetron 4 Mg/2 Ml Vial) 4 mg IV Q8H PRN PRN PRN Reason: NAUSEA Last Admin: 01/21/21 14:03 Dose: 4 mg Documented by: Ondansetron HCl (Ondansetron 8 Mg Tablet) 8 mg PO Q8H PRN PRN PRN Reason: NAUSEA Oxycodone HCl (Oxycodone 5 Mg Tablet) 5 mg PO Q4H PRN PRN PRN Reason: Pain Score 6-10 Last Admin: 01/22/21 06:10 Dose: 5 mg Documented by: Sodium Chloride (0.9% Saline Lock 10 Ml Syringe) 10 - 40 ml IV UD PRN PRN Reason: SALINE FLUSH Last Admin: 01/22/21 08:04 Dose: 10 ml Documented by: Tramadol HCl (Tramadol 50 Mg Tablet) 50 - 100 mg PO Q6H PRN PRN PRN Reason: Pain Score 1-5 Last Admin: 01/21/21 11:19 Dose: 50 mg Documented by: Medical Necessity - Tobacco Use Smoking Status: Never smoker Assessment/Plan All Active Problems (Last Updated 01/22/21 @ 08:[address] Augustine Austin MD) Ventral incisional hernia without obstruction or gangrene (Acute) This is a 55 years old female patient underwent laparoscopic repair of hiatal hernia and postoperatively, she developed fever, chest pain and leukocytosis, found to have small right apical pneumothorax, tiny area of pneumomediastinum and extravasation/leak at the gastroesophageal junction, excluded according to the CTA report. #1 status post laparoscopic repair of hiatal hernia: Postoperative day 2. She is on Pepcid twice daily. Started on clear liquids today. She is afebrile, blood pressure and heart rate are stable, pulse ox is 98% on 2 L. Leukocytosis resolved. General surgery on the case. #2 small right apical pneumothorax/tiny pneumomediastinum: And according to the CTA report, extravasation/leak at the gastroesophageal junction cannot be excluded. Patient had spikes of fever overnight, she has been afebrile this morning. Leukocytosis resolved. She received IV Rocephin and Flagyl as well as 1 dose of Zosyn, all of them are discontinued at this time. Blood and urine cultures are pending. Patient remains on 2 L of oxygen. Respiratory status is stable. EKG showed no acute ischemic changes. Troponin was negative x3. Plan to keep monitoring. #3 GERD: Continue Pepcid. #4 hyperlipidemia: Continue statins. #5 DVT prophylaxis: Subcu Lovenox. This note was generated with [employer] dictation software. It may contain incorrect words, spelling, and punctuation that were not noted in checking the note before signing. Inpatient E&M: 34643 Subs Hosp L2
[2021-01-22] MEDS: traMADol 50 MG Tablet PO (12:13)
--- NOTE | 2021-01-22 14:28 | PCM.DC.SUM ---
Discharge Date and Diagnosis - Problem List Patient Problems: Active and Suspected Problems (Last Updated 01/22/21 @ 08:[address] Augustine Austin MD) Ventral incisional hernia without obstruction or gangrene (Acute) Date of Admission: 01/20/21 Date of Discharge: 01/22/21 - Primary Discharge Diagnosis Acute Problems: Active Problems (Last Updated 01/22/21 @ 08:[address] Augustine Austin MD) Intractable GERD hiatal hernia S/p laparoscopic Jad fundoplication - Secondary Discharge Diagnosis Chronic Problems: Chronic Problems (Last Updated 01/22/21 @ 08:[address] Augustine Austin MD) Spinal cord stimulator status (Chronic) Chronic pain (Chronic) Hyperlipidemia (Chronic) RBBB (right bundle branch block) (Chronic) Gastroesophageal reflux disease (Chronic) Chest pain (Chronic) Positional vertigo (Chronic) Hospital Course and Treatment Operations: - - Laparoscopic Jad Fundoplication Toupet repair Procedures: EKG Summary of Care Provided: The patient is a 55 year old F who presented for an elective procedure for intractable GERD. Dr. Arellano performed a laparoscopic jad fundoplication toupet repair on 01/20/21. Patient tolerated the procedure well. Post-operatively, patient was having a considerable amount of right retrosternal pain radiating straight into her back. An EKG, cardiac enzymes, cbc, cmp, amylase, lipase, chest x-ray was completed on POD #1. Atelectasis was noted on the chest x-ray and some consolidation, however Dr. Arellano works up near the mediastinum when performing the wrap, so he expected to see some congestion in this region. EKG demonstrated a right bundle branch block which is chronic for the patient. Cardiac enzymes were unremarkable. Patient denies having a cough. Later that night, the patient developed a fever with peak temperature of 102. Hospitalist was consulted during the night and ordered a CTA, UA, lactic acid and COVID test. Lactic acid was normal. UA showed blood, leukocyte esterase, and nitrate. She denies pain/burning with urination. CTA demonstrated the following: FINDINGS: Small right apical pneumothorax. Minor atelectasis right upper lobe posteriorly. Compression of dependent bilateral lower lobe parenchyma right greater than left. Small lateral right pleural effusions. Normal enhancement of the main pulmonary artery and right and left pulmonary arteries. Normal enhancement of the bilateral peripheral pulmonary arteries. There is no demonstrated pulmonary embolism. Normal thoracic aorta and visualized great vessels. There is no demonstrated aortic dissection. Normal heart and pericardium. Tiny pockets of air anterior to the heart in the lower mediastinum. Normal hilar regions. Normal visualized trachea and bronchi. The lungs are under expanded. Volume, mild elevation right hemidiaphragm, mild compression of the dependent parenchyma. Normal chest wall structures. Normal osseous structures. Streak artifact caused by neurostimulator device. Prior cholecystectomy. Liver is low attenuated. The gastric fundus is folded, not clearly visualized. Oral contrast within the esophagus and stomach. Hyperattenuation along the gastroesophageal junction image 45-62 of series 2, image 152 series 601, image [id number] series 602. CTA was reviewed with Dr. Arellano who did not visually see a leak on CTA images. POD #2, patient's pain was better controlled. She had not worked too much on ambulation, mostly to the chair and in bed. Upon discharge, patient had been further instructed on incentive spirometer and deep breathing. She has walked multiple times in the hallway. Her pain was better controlled with oral pain medication. She had denied nausea, dry heaving. She was tolerating clears and Ensure. She was urinating well. Negative flatus, BM. Her chest pain has greatly improved. Patient Problems: Active and Suspected Problems (Last Updated 01/22/21 @ 08:[address] Augustine Austin MD) Ventral incisional hernia without obstruction or gangrene (Acute) - Physical Exam Vitals/I&O's: Vital Signs Temp Pulse Resp BP Pulse Ox 98.3 F 97 24 H 114/82 H 98 01/22/21 12:15 01/22/21 12:15 01/22/21 12:15 01/22/21 12:15 01/22/21 12:15 Oxygen Flow Rate (L/min) 2 Oxygen Delivery Method Nasal Cannula Weight: 147 lb 4.301 oz Body Mass Index (BMI) 26.9 Intake and Output for Last 24 Hours 01/20/21 01/21/21 01/22/21 23:59 23:59 23:59 Intake Total 2710 / 2710 2573.5 / 2573.5 841.0 / 841.0 Output Total 850 / 850 1020 / 1020 1100 / 1100 Balance 1860 / 1860 1553.5 / 1553.5 -259.0 / -259.0 General: Alert, Oriented x3, Cooperative Lungs: Clear to auscultation, Normal air movement Cardiovascular: Regular rate, No murmurs Abdomen: Bowel Sounds Present, Soft, Distended - slightly, Tender - mildly generalized tenderness, - - Incisions c/d/i. Microbiology Past 72 Hours 01/22/21 01:35 Mucosa - Nose SARS-CoV-2 Antigen (Rapid) - Final Laboratory Results 01/21/21 16:42: WBC 11.5 H, RBC 3.98 L, Hgb 11.8 L, Hct 36.3 L, MCV 91.2, MCH 29.6, MCHC 32.5, RDW Std Deviation 42.3, RDW Coeff of Barb 12.7, Plt Count 273, MPV 8.9, Immature Gran % (Auto) 0.300, Neut % (Auto) 74.3 H, Lymph % (Auto) 18.0 L, Howard % (Auto) 6.7, Eos % (Auto) 0.4, Baso % (Auto) 0.3, Absolute Neuts (auto) 8.5 H, Absolute Lymphs (auto) 2.06, Nucleated RBC % 0 01/21/21 16:42: Sodium 137, Potassium 3.6, Chloride 103, Carbon Dioxide 28.0, Anion Gap 6, BUN 13, Creatinine 0.82, Estim Creat Clear Calc 62.75, Est GFR (MDRD) Af Amer 94, Est GFR (MDRD) Non-Af 77, BUN/Creatinine Ratio 15.9, Glucose 92, Calcium 8.4 L, Total Bilirubin 0.80, AST 236 H, ALT 263 H, Alkaline Phosphatase 76, Troponin I < 0.015, Total Protein 6.8, Albumin 3.3, Globulin 3.5, Albumin/Globulin Ratio 0.9, Amylase 16 L, Lipase 60 L 01/21/21 20:05: Troponin I < 0.015 01/21/21 22:24: Troponin I < 0.015 01/22/21 00:30: Lactic Acid 0.7 01/22/21 00:55: Urine Color Yellow, Urine Clarity Clear, Urine pH 6.5, Ur Specific Echo 1.010, Urine Protein Negative, Urine Glucose (UA) Normal, Urine Ketones Negative, Urine Occult Blood 10 H, Urine Nitrite Positive H, Urine Bilirubin Negative, Urine Urobilinogen Normal, Ur Leukocyte Esterase 25 H, Urine RBC 0-5 SEEN, Urine WBC 0-5 SEEN, Ur Squamous Epith Cells 0 SEEN, Urine Bacteria RARE, Urine Mucus 0 SEEN 01/22/21 01:35: MRSA (PCR) Negative 01/22/21 05:55: WBC 10.3, RBC 4.08 L, Hgb 11.8 L, Hct 37.3, MCV 91.4, MCH 28.9, MCHC 31.6 L, RDW Std Deviation 42.0, RDW Coeff of Barb 12.5, Plt Count 264, MPV 8.9, Immature Gran % (Auto) 0.200, Neut % (Auto) 77.8 H, Lymph % (Auto) 13.3 L, Howard % (Auto) 7.4, Eos % (Auto) 1.0, Baso % (Auto) 0.3, Absolute Neuts (auto) 8.0 H, Absolute Lymphs (auto) 1.36, Nucleated RBC % 0 Current Medications Acetaminophen (Acetaminophen 325 Mg Tablet) 650 mg PO Q6H PRN PRN PRN Reason: PAIN 1-10 Last Admin: 01/22/21 11:06 Dose: 650 mg Documented by: Atorvastatin Calcium (Atorvastatin Calcium 40 Mg Tablet) 40 mg PO QHS [facility] Last Admin: 01/21/21 20:54 Dose: 40 mg Documented by: Cyclobenzaprine HCl (Cyclobenzaprine Hcl 10 Mg Tablet) 5 mg PO 4X/DAY PRN PRN Reason: .MUSCLE SPASM Last Admin: 01/21/21 20:54 Dose: 5 mg Documented by: Enoxaparin Sodium (Enoxaparin 40 Mg/0.4 Ml Syringe) 40 mg SC DAILY@0600 [facility] Last Admin: 01/22/21 06:10 Dose: 40 mg Documented by: Famotidine (Famotidine 20 Mg Tablet) 20 mg PO BID [facility] Last Admin: 01/22/21 08:04 Dose: 20 mg Documented by: Gabapentin (Gabapentin 600 Mg Tablet) 1,200 mg PO TID [facility] Last Admin: 01/22/21 12:13 Dose: 1,200 mg Documented by: Hydromorphone HCl (Hydromorphone 0.5 Mg/0.5 Ml Syringe) 0.5 - 1 mg IV Q3H PRN PRN PRN Reason: Pain Score 1-10 Last Admin: 01/21/21 20:48 Dose: 1 mg Documented by: Hydromorphone HCl (Hydromorphone 1 Mg/Ml Syringe) 0.5 - 1 mg IV Q3H PRN PRN PRN Reason: Pain Score 1-10 Last Admin: 01/21/21 05:45 Dose: 1 mg Documented by: Lactated Ringer's () 1,000 mls @ 30 mls/hr IV .[id number] [facility] Last Infusion: 01/22/21 08:04 Dose: 0 mls/hr Documented by: Lorazepam (Lorazepam 2 Mg/Ml Syringe) 0.5 - 1 mg IV Q6H PRN PRN PRN Reason: SPASMS Last Admin: 01/21/21 19:37 Dose: 1 mg Documented by: Meclizine HCl (Meclizine 12.5 Mg Tablet) 12.5 mg PO DAILY PRN PRN PRN Reason: Vertigo Last Admin: 01/21/21 13:19 Dose: 12.5 mg Documented by: Nutritional Formula (Lactose Free) (Ensure Clear 120 Ml Liquid) 120 ml PO TIDCM [facility] Last Admin: 01/22/21 11:07 Dose: 120 ml Documented by: Ondansetron HCl (Ondansetron 4 Mg/2 Ml Vial) 4 mg IV Q8H PRN PRN PRN Reason: NAUSEA Last Admin: 01/21/21 14:03 Dose: 4 mg Documented by: Ondansetron HCl (Ondansetron 8 Mg Tablet) 8 mg PO Q8H PRN PRN PRN Reason: NAUSEA Oxycodone HCl (Oxycodone 5 Mg Tablet) 5 mg PO Q4H PRN PRN PRN Reason: Pain Score 6-10 Last Admin: 01/22/21 11:07 Dose: 5 mg Documented by: Sodium Chloride (0.9% Saline Lock 10 Ml Syringe) 10 - 40 ml IV UD PRN PRN Reason: SALINE FLUSH Last Admin: 01/22/21 08:04 Dose: 10 ml Documented by: Tramadol HCl (Tramadol 50 Mg Tablet) 50 - 100 mg PO Q6H PRN PRN PRN Reason: Pain Score 1-5 Last Admin: 01/22/21 12:13 Dose: 100 mg Documented by: Discharge Diet: - - Refer to my preprinted instructions Home Medications: Medications to take at Discharge cycloBENZAPRine HCl [Flexeril] 5 mg PO 4X/DAY PRN 08/22/13 Gabapentin 1,200 mg PO TID 04/17/14 traMADol [Ultram] 50 - 100 mg PO Q6H PRN PRN 07/01/16 atorvastatin 40 mg tablet 40 mg PO QHS 06/13/20 Ergocalciferol [Vitamin D] 50,000 units PO QWEEK 06/22/20 Acetaminophen [Tylenol Tablet] 650 mg PO Q6H PRN PRN tab 06/23/20 Famotidine [Pepcid] 20 mg PO BID 01/13/21 Primary Care Physician: Partha García MD [Primary Care Provider] - Please Follow Up With: Roddy Arellano MD - [phone] When: On Wednesday or Wednesday. Please call for an appointment Disposition: Home Minutes spent on discharge:: 25 Patient Condition:: Stable Medical Necessity - Tobacco Use Smoking Status: Never smoker Meaningful Use Info Meaningful Use Diagnoses (Choose all that apply): None applicable Inpatient E&M: 30161 Disch Hosp
--- NOTE | 2021-01-22 14:57 | NURSING ---
RNCM Note: Patient planned to DC home today. Introduced self and role to patient. Patient states DC home and denies any issues, concerns, or needs with DC. Nurse at bedside states that patient O2 sat 98%ra. No Home oxygen needs indicated. RNCM will remain available should any needs arise prior to DC. FELECIA Small
--- NOTE | 2021-01-22 15:43 | CHAPLAIN ---
Type of Pastoral Visit _x__ Initial Visit ___ Follow-up Visit ___ On-call Visit ___ General Patient Visit ___ Spiritual Assessment ___ Family Conference ___ Bereavement ___ Rapid Response ___ Code Blue ___ Other (describe below) Pastoral Care Referral From _x__ Patient ___ Family ___ Nurse ___ Physician ___ B2B Sales Representative ___ Recreation Professor ___ Other (describe below) Sacrament/Intervention _x__ Active listening ___ Anointing ___ Sikh ___ Bereavement ___ Communion ___ Anne exploration ___ ___ Life review _x__ Prayer ___ Reconciliation ___ Sacrament of Sick ___ Supportive presence ___ Wedding ___ Other (describe below) Pastoral Comments
== END 2021-01-22 16:16 | disposition home or self-care (01) ==
LOC: SDC 11:14 → MS3 11:14
PROVIDERS: Nurse Practitioner Family; Physician Assistant; Admitting Provider Surgery; PCP Family Medicine; Referring Provider Surgery; Visit Provider Surgery
PROC: (CPT 43325; principal; 2021-01-20 07:10)
DX: K44.9 Diaphragmatic hernia without obstruction or gangrene (principal); K43.2 Incisional hernia without obstruction or gangrene; K21.00 Gastro-esophageal reflux disease with esophagitis, without bleeding; E78.5 Hyperlipidemia, unspecified; I45.2 Bifascicular block; Z23 Encounter for immunization; K92.2 Gastrointestinal hemorrhage, unspecified; K58.9 Irritable bowel syndrome, unspecified; G25.81 Restless legs syndrome; G89.29 Other chronic pain; Z90.49 Acquired absence of other specified parts of digestive tract; Z79.899 Other long term (current) drug therapy; R50.82 Postprocedural fever
CPT/HCPCS: 00790; 43235; 43280; 36415; 71046; 71275; 80048; 80053; 81001; 82150; 83605; 83690; 84484; 85025; 85027; 87040; 87086; 87426; 87641; 88302; 93005; 96365; 96366; 96367; 96372; 96375; 96376; 97802; 99218; 99251; C9803; J7120; Q9967; 90686; A4216; G0378; G0379; G0463; J2405

== ENCOUNTER → 2021-03-19 16:49 | Outpatient (CLI) | payer OTHER, SELFPAY ==
[2021-01-20 13:23] VITALS: BMI 26.9
--- NOTE | 2021-03-19 17:01 | CT_ITS ---
STUDY: CT ABDOMEN WITH CONTRAST REASON FOR EXAM: Female, 55 years old. Ventral hernia RADIATION DOSAGE (If Supplied By Facility): CTDIvol = ( 14.62 ) mGy, DLP = ( 356.81 ) mGycm TECHNIQUE: Transaxial images were obtained post I.V. administration of Oral and amp; IV Readi-CAT and amp; 100mL Isovue-300, and with oral contrast. Sagittal and coronal images were reconstructed. Individualized dose optimization techniques were used for this CT. COMPARISON: Comparison is made with prior study dated 09/09/2016. FINDINGS: The visualized lung bases are unremarkable. Coronary artery calcification. There is decreased attenuation of the liver consistent with steatosis. There are surgical clips in the gallbladder fossa consistent with a prior cholecystectomy. Normal spleen. Normal pancreas. Normal bilateral adrenal glands. Normal right kidney. Normal left kidney. There is a small hiatal hernia. Normal small intestine. Moderate amount of fecal material is seen in the colon. There are surgical clips in the region of the appendix consistent with a prior appendectomy. Normal abdominal aorta. Normal inferior vena cava. Normal retroperitoneum. The patient is status post hysterectomy. No evidence of ventral hernia. A battery pack from a TENS unit is seen overlying the left buttock. Normal osseous structures. CT/Abdomen WITH IV Contrast IMPRESSION: Diffuse fatty infiltration of the liver. Status post cholecystectomy. Electronically Signed: Donnie Hurtado MD at 8:43 EDT , Service support ,
== END ==
PROVIDERS: PCP Family Medicine; Referring Provider Surgery; Visit Provider Surgery
DX: K43.2 Incisional hernia without obstruction or gangrene (principal)
CPT/HCPCS: 74160; Q9967

== ENCOUNTER 2021-04-22 05:42 | Day surgery (SDC) | payer OTHER, SELFPAY ==
[2021-01-20 13:23] VITALS: BMI 26.9
[2021-03-27 12:52] VITALS: BMI 26.5
--- NOTE | 2021-04-16 09:03 | EKG12_ITS ---
Test Reason : PRE OP Blood Pressure : / mmHG Vent. Rate : 104 BPM Atrial Rate : 104 BPM P-R Int : 130 ms QRS Dur : 110 ms QT Int : 384 ms P-R-T Axes : 029 -48 021 degrees QTc Int : 504 ms Sinus tachycardia Left anterior fascicular block Abnormal ECG Confirmed by JERAMIE QUILES, JOVANA ([id number]), mapping editor AD MAYA ([id number]) on 04/17/2021 11:17:47 AM Referred By: PRISCILLA Confirmed By:JOVANA BOBO MD
[2021-04-16 10:35] LABS: Hematocrit 43.3 % (37-47); Hemoglobin 13.8 g/dL (12.0-15.0); Mean Corp Hgb Conc 31.9 g/dL (32-36); Mean Corpuscular Hgb 29.1 pg (27.0-32.0); Mean Corpuscular Volume 91.2 fL (81-99); Mean Platelet Vol. 9.7 fl (6.2-12.0); Platelet Count 438 K/mm3 (150-450); RBC Distribution Width CV 11.9 % (11.6-14.6); RBC Distribution Width SD 39.8 fl (35.1-43.9); Red Blood Count 4.75 M/mm3 (4.2-5.4); White Blood Count 8.5 K/mm3 (4.4-11.0)
[2021-04-16 10:55] LABS: Anion Gap 5 (5-15); BUN 9 mg/dL (7-18); BUN/Creat Ratio 10.8 RATIO (10-20); Calcium,Total 9.4 mg/dL (8.5-10.1); Chloride 105 mmol/L (98-107); Creatinine, Serum 0.84 mg/dL (0.55-1.02); EST Glomerular Filtration Rate 75 mL/min (>60); Est Glom Filt Rate - Afr Amer 91 mL/min (>60); Glucose 179 mg/dL (74-106); Potassium 3.5 mmol/L (3.5-5.1); Sodium Level 140 mmol/L (136-145)
[2021-04-22] VITALS (7 sets, daily range): BP systolic 92–111; BP diastolic 54–73; PULSE 78–100; RESP 16–20; TEMP 36.5–36.6; O2SAT 93–99; BMI 26.2
--- NOTE | 2021-04-22 06:08 | PCM.HP.BLA ---
History and Physical Date of Admission: 04/22/21 Intake Visit Reasons: recheck abdomen Chief Complaint: recheck abdomen Cell Operator Required: No Is patient in pain?: No Allergies NSAIDS (Non-Steroidal Anti-Inflamma Adverse Reaction (Verified 03/27/21 12:53) Nausea Medications cyclobenzaprine 5 mg PO 4X/DAY PRN 08/22/13 [History Confirmed 03/27/21] gabapentin 1,200 mg PO TID 04/17/14 [History Confirmed 03/27/21] tramadol 50 - 100 mg PO Q6H PRN PRN 07/01/16 [History Confirmed 03/27/21] atorvastatin 40 mg tablet 40 mg PO QHS 06/13/20 [History Confirmed 03/27/21] ergocalciferol (vitamin D2) 50,000 units PO QWEEK 06/22/20 [History Confirmed 03/27/21] acetaminophen 650 mg PO Q6H PRN PRN tab 06/23/20 [Rx Confirmed 03/27/21] famotidine 20 mg PO BID 01/13/21 [History Confirmed 03/27/21] PFSH Medical History (Updated 03/11/21 @ 13:01 by Rebecca Brown) Anxiety and depression Back problem Diarrhea Gastroesophageal reflux disease GERD (gastroesophageal reflux disease) Hiatal hernia Hyperlipidemia Left anterior fascicular block (LAFB) Lumbar disc disease Narcolepsy Positional vertigo Pyloric stenosis RBBB (right bundle branch block) Ventral incisional hernia without obstruction or gangrene Surgical History History of appendectomy History of back surgery History of bilateral carpal tunnel release History of bladder repair surgery History of cholecystectomy History of colectomy History of colonoscopy (~2014) History of esophagogastroduodenoscopy (EGD) (~2014) History of hysterectomy with unilateral oophorectomy History of repair of hiatal hernia (~01/2021) history of spinal stimulator Family History Mother Breast cancer Diabetes Hypertension Grandmother Myocardial infarction, Onset Age: 68 Social History (Updated 03/11/21 @ 14:[address] Roddy Arellano MD) Smoking Status: Never smoker alcohol intake: never substance use type: does not use caffeine: Yes Type: coffee Number of servings: 2 HPI HPI HPI: RAFAEL RICHTER, is a 55 F who presents to the office today for surgical consultation regarding a suspected ventral incisional hernia. She has had several CT scans which have failed to demonstrate it. However on my review of her most recent CAT scan noted below nursing home between the xiphoid and the umbilicus I am able to demonstrate a very small fascial midline defect. STUDY: CT ABDOMEN WITH CONTRAST REASON FOR EXAM: Female, 55 years old. Ventral hernia RADIATION DOSAGE (If Supplied By Facility): CTDIvol = ( 14.62 ) mGy, DLP = ( 356.81 ) mGycm TECHNIQUE: Transaxial images were obtained post I.V. administration of Oral and amp; IV Readi-CAT and amp; 100mL Isovue-300, and with oral contrast. Sagittal and coronal images were reconstructed. Individualized dose optimization techniques were used for this CT. COMPARISON: Comparison is made with prior study dated 09/09/2016. FINDINGS: The visualized lung bases are unremarkable. Coronary artery calcification. There is decreased attenuation of the liver consistent with steatosis. There are surgical clips in the gallbladder fossa consistent with a prior cholecystectomy. Normal spleen. Normal pancreas. Normal bilateral adrenal glands. Normal right kidney. Normal left kidney. There is a small hiatal hernia. Normal small intestine. Moderate amount of fecal material is seen in the colon. There are surgical clips in the region of the appendix consistent with a prior appendectomy. Normal abdominal aorta. Normal inferior vena cava. Normal retroperitoneum. The patient is status post hysterectomy. No evidence of ventral hernia. A battery pack from a TENS unit is seen overlying the left buttock. Normal osseous structures. CT/Abdomen WITH IV Contrast IMPRESSION: Diffuse fatty infiltration of the liver. Status post cholecystectomy. Electronically Signed: Donnie Hurtado MD at 8:43 EDT , Service support , ROS General General: No weight change, appetite, fatigue, colon cancer, breast cancer or weakness HEENT HEENT: No difficulty swallowing, eye injury, eye surgery, swollen glands or hoarseness Endo Endocrine: No thyroid disease, diabetes mellitus, thyroid cancer, Hair loss, heat intolerance or cold intolerance Skin Skin: No rash or changing moles Breast Breast: No left breast lump, right breast lump, nipple discharge, breast pain, abnormal mammogram, abnormal US or breast enlargement Musc Musculoskeletal: Yes back problems; No arthritis, rheumatoid arthritis, gout or joint pain Cardio Cardiovascular: No murmur, pacemaker, heart disease, atrial fibrillation, high blood pressure, heart attack, heart stent, palpitations, shortness of breat with exertion or chest pain Psych Psychiatric: Yes depression and anxiety; No hearing voices Resp Respiratory: No shortness of breath, No sleep apnea, No cough, No COPD, No asthma, No emphysema and No wheezing Gastro Gastrointestinal: No abdominal pain, No nausea or vomiting, Yes diarrhea, No constipation, No blood in stool, No acid reflux, No hemorrhoids, No ulcers, No gallbladder problem and No black,tarry stools Dirk Hematologic: No blood thinners, No blood disorders, No bleeding, No anemia and No blood clots Neuro Neurologic: No system reviewed and no additional complaints, except as documented, No as per HPI, No abnormal gait, No abnormal hearing, No abnormal movements, No abnormal speech, No behavioral changes, No burning sensations, No confusion, No convulsions, No disequilibrium, No dizziness, No localized weakness, No frequent falls, No headache(s), No lack of coordination, No loss of vision, No memory loss, No numbness, No other visual disturbances, No radicular pain, No restless legs, No sensory deficit, No syncope, No tingling, No tremor(s), No weakness and No other Exam Const General: cooperative, healthy appearing and comfortable [facility] Head: normal to inspection Resp Effort & Inspection: normal respiratory effort Auscultation: clear to auscultation bilaterally Cardio Rate: regular rate Rhythm: regular rhythm GI Other: Healing laparoscopic port sites from her laparoscopic toupee procedure. Approximately 6 cm superior to the umbilicus with the patient standing and straining I am able to palpate a small focal midline defect with some reducible fibrofatty tissue. The patient is point tender at that spot. It is just superior to the right upper quadrant port site and it is midline Musc Cervical Spine: normal cervical lordosis Neuro General: patient alert and patient awake Extrem General: no calf tenderness bilaterally Psych Thought Content: normal COVID (Procedure Consent) Procedure Criteria Procedure Criteria: Yes Elective The surgeon/proceduralist and patient have discussed in detail the risk of exposure to and/or potential harm posed by the COVID-19 virus with having a surgery/procedure at this time versus the risk of delaying the surgery/procedure. It is not possible to know either the risk of delaying the surgery or procedure or chance of getting an infection with perfect accuracy, but a joint decision was made between the patient and the surgeon/proceduralist to proceed at this time with the scheduled surgery/procedure as indicated on the consent form. Assessment and Plan Assessment and Plan (1) Ventral incisional hernia without obstruction or gangrene: Status: Acute Plan Details Additional Comments: Epigastric ventral incisional hernia which I inked marked. This correlates with what I can see on her CT scan. This appears to be a focal small defect. I propose for her a direct cutdown upon the site. I anticipate a suture repair of the defect area and possibly a mesh onlay. Anticipate outpatient procedure. The patient is known to have reasonably extensive right colonic adhesions to the anterior abdominal wall which were only partially lysed at the time of her very recent laparoscopic repair for hiatal hernia and toupet. It is for that reason I would very much like not to repeat a laparoscopic procedure. As best I can tell this is a very focal issue. We have discussed the technique, benefit, risk, alternatives. The patient will try to keep the area that I have ink raúl consistently marked. She will need to be reexamined while standing up and straining to pinpoint the exact spot preoperatively. I appreciate the opportunity of assisting with her surgical care It is of note that the patient's had a previous CT scan at the [facility] identifying a small left inguinal hernia with fibrofatty tissue. The patient is not symptomatic from this. I am not anticipating surgical treatment of that at this time. Her epigastric site is intermittently sharp in twinge he when she coughs or strains or twists. Copy: Dr. Partha Arellano M.D., F.A.C.S. I have re-examined the patient. There are no clinical changes since date of exam. Roddy Arellano M.D., F.A.C.S.
[2021-04-22] MEDS: Lactated Ringers 1,000 ML 100 ML IV ×2 (06:13→09:08)
--- NOTE | 2021-04-22 07:13 | EX.PCM.DISCH ---
Discharge Instructions Procedure General Surgery Diet Discharge Diet: Light diet - advance as tolerated (if you have questions about your diet instructions, please talk to you doctor.) Activity Discharge Activity: May Not Drive (for 3-5 days or while taking narcotic pain medicine.) May shower in (days): 1 Lifting Restrictions: 10 pounds Dressing / Incision Call your doctor if your incision/area has: Continuous Slow Oozing, Sudden Increased Bleeding, Increased Pain/ Swelling, Increased Redness and Foul Smelling Discharge Call your doctor if you observe: Fever of 101 or Higher Suture Line Care: Avoid Pulling/Pushing and Avoid Pinching/Bending Additional Dressing/Incision Instructions:: Change or remove dressing in 4 days. Leave steri-strips in place for 1 week. Follow Up Care Please Follow Up With: Roddy Arellano MD When: Call [phone] to make an appointment to be seen in about 10 days. Test Results: Test results from this visit will be discussed in further detail at your follow-up appointment, if applicable. Discharge Plan Admission Primary Reason for Your Visit: Symptomatic ventral incisional hernia Attending Provider: Roddy Arellano Primary Care Provider: Partha García Instructions Patient Instructions: ED Chest Pain, Noncardiac Discharge Orders/Prescriptions Prescriptions: No Action atorvastatin [Lipitor] 40 mg tablet 40 mg PO QHS RF: 0 cyclobenzaprine 10 MG tablet 5 mg PO 4X/DAY PRN (Reason: Pain) RF: 0 gabapentin 600 MG tablet 1,200 mg PO TID RF: 0 tramadol 50 MG tablet 50 - 100 mg PO Q6H PRN PRN (Reason: Pain) RF: 0 ergocalciferol (vitamin D2) 50,000 UNIT capsule 50,000 units PO QWEEK RF: 0 acetaminophen 325 MG tablet 650 mg PO Q6H PRN PRN (Reason: Pain Score 1-10/Temp > 100.7 F) RF: 0 famotidine 20 MG tablet 20 mg PO BID RF: 0 Referrals / Follow Up: Roddy Arellano MD [STAFF PHYSICIAN] - Partha García MD [Primary Care Provider] - Disposition Disposition (needs filled in before D/C Order can be placed): Home, self care
[2021-04-22] MEDS: Cefazolin 2 GM in 0.9% Normal Saline 100 ML IV (07:21)
--- NOTE | 2021-04-22 07:30 | HERN_PTH ---
PATIENT: RAFAEL RICHTER LOC: [facility] – [place] U#:[id number] AGE/SX: 55/F ROOM: RE04/22/[address]: Dr. Roddy Arellano MD : 1965 BED: DIS: 04/22/2021 SPEC #: [id number] RECD: 04/22/21 13:03 STATUS: KINGSLEY REJon #: [id number] LILLY: 04/22/21 07:[address]: Roddy Arellano DEPT: SURGICAL PATHOLOGY RECD BY: Jon Kent ENTERED: 04/22/21 13:12 SP TYPE: Hernia OTHR DR: Dr. Partha García MD Tissues: HERNIA Procedures: Surgery Specimen Level II HEADER OPERATION: Open ventral hernia repair with mesh PRE-OP DIAGNOSIS: Ventral incisional repair TISSUE SUBMITTED: Hernia sac MICROSCOPIC DIAGNOSIS Soft tissue of ventral abdomen, excision: Consistent with hernia sac with fibrosis, fat necrosis and benign histiocytic reaction. AM:etienne 04/23/2021 MICROSCOPIC DESCRIPTION Slides are reviewed. GROSS DESCRIPTION Received in fixative is one container labeled with the patient's name and designated hernia sac. The specimen consists of multiple pieces of yellow adipose tissue that in aggregate measure 5 x 4.5 x 1.2 cm. No mass lesion is identified. Wire Brush Maker sections are submitted in one cassette. / SJ:etienne 04/22/21 TC:3 CPT: 33391
--- NOTE | 2021-04-22 08:17 | OP.PCM_ITS ---
Problems Associated Problem List Diagnoses (1) Ventral incisional hernia without obstruction or gangrene: Report of Operation Date of Procedure: 04/22/21 Pre-Operative Diagnosis: Symptomatic incarcerated ventral incisional hernia Post-Operative Diagnosis: Same Surgery/Procedure Performed:: Ventral incisional herniorrhaphy with 8 cm diameter Ventralex mesh Reference the [id number] Lot number [id number], expiry date 10/19/2022 Description of Surgical Findings:: Timeout and informed consent was obtained. 55-year-old female was taken to the operating placed on the table underwent gen eral anesthesia. Ancef 2 g of intravenously preoperatively. The abdomen sterilely prepped and draped. In the mid epigastric vertical incision related to a remote ileocolectomy a transverse incision was created. Sharp dissection was carried down through the subcutaneous tissue. By palpation there is evidence of preperitoneal fat incarcerated within 2 separate [id number] defects. The preperitoneal fatty tissue was dissected free. Fortunately there was no bowel involvement. There were adhesions of omentum to the anterior abdominal wall. These were sharply and bluntly dissected free. The 2 defects were united in the 1 opening and that allowed me better visualization to where I could completely free the preperitoneal tissue which was submitted a specimen. Freed the omental adhesions. The defect measured approximately 4 cm in diameter. A 8 cm Ventralex mesh was inserted and tails were secured with interrupted 0 Nurolon. The fascia was then approximated transversely with simpl e sutures of 0 Nurolon and I caught the anterior surface of the mesh with several of the stitches. Closure and positioning the mesh was felt to be very stable. The periincisional areas Nestabs with 0.5% Marcaine as was the subdermal tissue. A total of 30 cc was used. The deep space was closed with several interrupted sutures of 4-0 Monocryl. The skin edges approximated running septic of 4 Monocryl. Steri-Strips Telfa OpSite dressings applied. Sponge and instrument and needle counts were reported to the surgeon to be correct. Specimens incarcerated hernia sac and contents. Drains none. Blood loss minimal. The patient was taken to recovery area in satisfactory condition without apparent complication Roddy Arellano M.D., F.A.C.S. Surgeon: Roddy Arellano Type of Anesthesia: General and Local Anesthesiologist: Fanny Turcios
[2021-04-22] MEDS: Bupivacaine Mpf 0.5% 30 ML VIAL (08:19)
== END 2021-04-22 10:48 | disposition home or self-care (01) ==
LOC: SDC 05:42 → AC 05:42
PROVIDERS: PCP Family Medicine; Referring Provider Surgery; Visit Provider Surgery
PROC: (CPT 49561; principal; 2021-04-22 07:15)
DX: K43.0 Incisional hernia with obstruction, without gangrene (principal); E78.5 Hyperlipidemia, unspecified; K21.9 Gastro-esophageal reflux disease without esophagitis; I44.4 Left anterior fascicular block; R00.0 Tachycardia, unspecified; Z79.899 Other long term (current) drug therapy; K44.9 Diaphragmatic hernia without obstruction or gangrene
CPT/HCPCS: 49561; 49568; 36415; 80048; 85027; 87426; 88302; 93005; C9803; J7120; C1781; J2405

== ENCOUNTER 2021-10-01 17:10 | Emergency (ER) | payer OTHER, SELFPAY ==
[2021-10-01 17:11] VITALS: PULSE 111; RESP 30; TEMP 36.3; O2SAT 99; BMI 27.1
[2021-10-01 17:17] VITALS: BP 105/87
--- NOTE | 2021-10-01 17:36 | EKG12_ITS ---
Test Reason : CP Blood Pressure : / mmHG Vent. Rate : 107 BPM Atrial Rate : 107 BPM P-R Int : 126 ms QRS Dur : 106 ms QT Int : 372 ms P-R-T Axes : 034 -38 026 degrees QTc Int : 496 ms Sinus tachycardia Left axis deviation Incomplete right bundle branch block Abnormal ECG Confirmed by KATHERINE QUILES, SASHA ([id number]), social media editor DA MAYA ([id number]) on 10/02/2021 11:30:17 AM Referred By: DOMINGO Confirmed By:SASHA MURPHY MD
--- NOTE | 2021-10-01 17:40 | RAD_ITS ---
STUDY: X-RAY CHEST REASON FOR EXAM: Female, 56 years old. chest pain radiating to the jaw TECHNIQUE: Frontal portable view of the chest COMPARISON: 22 January 2021 FINDINGS: Pulmonary volumes are low. There are no focal opacities. There is no pneumothorax, cardiomegaly or pleural effusions. Spinal electrodes terminate in the midthoracic spine. RAD/Chest 1 View (Portable) IMPRESSION: Unremarkable low volume chest radiograph. Electronically Signed: Tarun Malagon MD at 18:13 EST Tel , Service support ,
[2021-10-01 17:52] LABS: Absolute Lymphocyte Count 4.16 X10^3/uL (0.83-4.51); Absolute Neutrophil Count 4.7 X10^3/uL (2.0-7.7); Basophil# 0.06 X10^3/uL; Basophil% 0.6 % (0-1); Eosinophil# 0.28 X10^3/uL; Eosinophils% 2.8 % (0-5); Hematocrit 38.4 % (37-47); Hemoglobin 12.5 g/dL (12.0-15.0); Lymphocyte # 4.16 X10^3/ul (0.83-4.51); Lymphocyte % 41.5 % (19-41); Mean Corp Hgb Conc 32.6 g/dL (32-36); Mean Corpuscular Hgb 28.3 pg (27.0-32.0); Mean Corpuscular Volume 87.1 fL (81-99); Mean Platelet Vol. 9.9 fl (6.2-12.0); Monocyte# 0.82 X10^3/uL; Monocyte% 8.2 % (0-10); NRBC Flagged by Analyzer 0 % (0-5); Neutrophil # 4.66 X10^3/uL (2.7-7.7); Neutrophil % 46.5 % (47-70); Platelet Count 416 K/mm3 (150-450); RBC Distribution Width CV 12.5 % (11.6-14.6); RBC Distribution Width SD 40.1 fl (35.1-43.9); Red Blood Count 4.41 M/mm3 (4.2-5.4)
--- NOTE | 2021-10-01 18:00 | EDS_ITS ---
HPI History of Present Illness Chief Complaint: Chest Pain Narrative Narrative: 56-year-old female presenting with chest pain which she describes as sharp and central retrosternal region. Patient states that she was standing across from a coworker at work when this occurred. She states she felt lightheaded when this happened but was not syncopal. Patient was given aspirin nitroglycerin and route via EMS and states that the pain has resolved. Patient states that she does not have specifically a cardiac history except for a right bundle branch block. She states she followed up with Dr. Diaz after her previous visit and was given nitroglycerin for her chest pain. She denies any TN or cardiac stent. She denies history of CHF. Patient states she has an upcoming visit soon at his office. Patient has no DVT/PE risk factors or history. As far as cardiac risk she states she only has hyper lipidemia. [facility] Medical History Anxiety and depression Back pain Back problem Cardiology follow-up encounter (~10/10/20) Diarrhea (~07/16/20) Gastroesophageal reflux disease GERD (gastroesophageal reflux disease) Hiatal hernia High cholesterol History of hiatal hernia History of IBS History of stress test (~07/16/20) Hyperlipidemia Injury of back Left anterior fascicular block (LAFB) Lumbar disc disease Narcolepsy Non-smoker Normal echocardiogram Positional vertigo Pyloric stenosis RBBB (right bundle branch block) Subcutaneous mass Ventral incisional hernia without obstruction or gangrene Wears glasses Home Medications cyclobenzaprine 5 mg PO 4X/DAY PRN 08/22/13 [History Last Taken 08/26/20] gabapentin 1,200 mg PO TID 04/17/14 [History Last Taken 08/26/20] tramadol 50 - 100 mg PO Q6H PRN PRN 07/01/16 [History Last Taken 08/26/20] atorvastatin 40 mg tablet 40 mg PO QHS 06/13/20 [History Last Taken 08/26/20] Allergy/AdvReac Type Severity Reaction Status Date / Time NSAIDS (Non-Steroidal AdvReac Nausea Verified 10/01/21 17:10 Anti-Inflamma Family History Mother Breast cancer Diabetes Hypertension Grandmother Myocardial infarction, Onset Age: 68 Surgical History History of appendectomy History of back surgery History of bilateral carpal tunnel release History of bladder repair surgery History of cholecystectomy History of colectomy History of colonoscopy (~2014) History of esophagogastroduodenoscopy (EGD) (~2014) History of hysterectomy with unilateral oophorectomy History of incisional hernia repair (~04/2021) History of repair of hiatal hernia (~01/2021) history of spinal stimulator Social History Smoking Status: Never smoker alcohol intake: never substance use type: does not use caffeine: Yes Type: coffee Number of servings: 2 ROS ROS ED Constitutional Constitutional ED: Denies chills or fever(s) Eyes Eyes: Denies blurry vision or change in vision ENT ENT ED: Denies rhinorrhea or sore throat Cardiovascular Cardiovascular: Reports chest pain, palpitations, racing heartbeat and other Details: Near syncope Respiratory/Chest Respiratory/Chest: Denies cough or dyspnea Gastrointestinal Gastrointestinal: Denies abdominal pain, nausea or vomiting Genitourinary Genitourinary ED: Denies dysuria or hematuria Musculoskeletal Musculoskeletal: Denies arthralgias or myalgias Integumentary Denies rash Neurologic Neurologic: Denies headache(s) or paresthesias Psychiatric Psychiatric: Denies anxiety or depression EXAM Physical Exam Const Vital Signs: 10/01/21 17:11 10/01/21 17:17 10/01/21 18:03 Temperature 97.4 F L Temperature Source Temporal Pulse Rate 111 H Respiratory Rate 30 H Respiratory Effort Short of Breath Respiratory Pattern Normal Blood Pressure 105/87 H Blood Pressure Mean 93 Pulse Ox 99 Oxygen Delivery Method Room Air Nasal Cannula Oxygen Flow Rate (L/min) 2 Fraction of Inspired Oxygen (FIO2) 95 10/01/21 18:29 10/01/21 19:18 10/01/21 20:21 Temperature Temperature Source Pulse Rate 96 89 93 Respiratory Rate 18 15 20 H Respiratory Effort Respiratory Pattern Blood Pressure 102/80 105/76 117/78 Blood Pressure Mean 87 85 Pulse Ox 96 95 98 Oxygen Delivery Method Nasal Cannula Oxygen Flow Rate (L/min) 2 Fraction of Inspired Oxygen (FIO2) Positive well nourished General Appearance ED: NAD; Negative for pallor HEENT Reports moist mucous membranes normocephalic and atraumatic Eyes PERRL and EOMs intact bilaterally Chest Wall inspection of chest normal and palpation of chest normal Resp normal respiratory effort Effort and Inspection: respiratory distress Cardio regular rhythm Rate: tachycardic GI normal to inspection, nondistended, normoactive bowel sounds Neuro oriented x3 and CN's II-XII intact bilaterally Sensorium / Orientation: awake and alert Psych mental status grossly normal Skin General Skin Exam: Negative for jaundice or pallor Heart Score History: Slightly/Non-Suspicious ECG: Normal Age: >45 - <65 years Risk Factors: 1 or 2 Risk Factors Score: 2 MDM MDM MDM Narrative Medical decision making narrative: Patient presenting with chest pain. She states it is sharp in nature. No history of DVT/PE. No history of TN. She does take nitroglycerin at home for history of chest pain which she states is prescribed by Dr. Diaz. Patient's EKG performed on arrival is a sinus tachycardia with a ventricular rate of [address] elevation or depression. Patient's pain is resolved after getting nitroglycerin and aspirin prior to arrival. She is not requiring any oxygen. Will obtain a chest x-ray and cardiac work-up. Chest x-ray my interpretation shows no acute cardiopulmonary process and the radiologist does agree. CBC and BMP are unremarkable. Troponin is 5. D-dimer is negative. Awaiting delta troponin. Patient reevaluated at 1915 and is doing well she has not any return of pain. Patient delta troponin is 6 and therefore she is a negative cardiac work-up. Patient has not had a return of chest pain. I believe patient safe for follow- up outpatient and she will call Dr. Diaz for an appointment. Impression: 1. Chest pain noncardiac 2. Near syncope Lab Data Labs: Laboratory Results - last 24 hr 10/01/21 10/01/21 10/01/21 17:18 17:18 17:18 WBC 10.0 RBC 4.41 Hgb 12.5 Hct 38.4 MCV 87.1 MCH 28.3 MCHC 32.6 RDW Std Deviation 40.1 RDW Coeff of Barb 12.5 Plt Count 416 MPV 9.9 Immature Gran % (Auto) 0.400 Neut % (Auto) 46.5 L Lymph % (Auto) 41.5 H Mcnairy % (Auto) 8.2 Eos % (Auto) 2.8 Baso % (Auto) 0.6 Absolute Neuts (auto) 4.7 Absolute Lymphs (auto) 4.16 Nucleated RBC % 0 D-Dimer Quant (PE/DVT) < 0.27 L Sodium 138 Potassium 3.7 Chloride 106 Carbon Dioxide 24.0 Anion Gap 8 BUN 13 Creatinine 0.78 Estim Creat Clear Calc 65.21 Est GFR (MDRD) Af Amer 100 Est GFR (MDRD) Non-Af 82 BUN/Creatinine Ratio 16.8 Glucose 94 Calcium 8.8 Troponin I High Sens 5 10/01/21 19:18 WBC RBC Hgb Hct MCV MCH MCHC RDW Std Deviation RDW Coeff of Barb Plt Count MPV Immature Gran % (Auto) Neut % (Auto) Lymph % (Auto) Mcnairy % (Auto) Eos % (Auto) Baso % (Auto) Absolute Neuts (auto) Absolute Lymphs (auto) Nucleated RBC % D-Dimer Quant (PE/DVT) Sodium Potassium Chloride Carbon Dioxide Anion Gap BUN Creatinine Estim Creat Clear Calc Est GFR (MDRD) Af Amer Est GFR (MDRD) Non-Af BUN/Creatinine Ratio Glucose Calcium Troponin I High Sens 6 Radiography Diagnostic Testing: Clinical Impression(s) from Imaging Studies Chest X-Ray 10/01/21 17:40 IMPRESSION: Unremarkable low volume chest radiograph. Electronically Signed: Tarun Malagon MD at 18:13 EST Tel , Service support , Discharge Plan Triage Chief Complaint: Chest Pain ED Provider: Neftali Wray Dx/Rx/DC Orders Instructions: ED Chest Pain, Noncardiac Prescriptions: No Action atorvastatin [Lipitor] 40 mg tablet 40 mg PO QHS RF: 0 cyclobenzaprine 10 MG tablet 5 mg PO 4X/DAY PRN (Reason: Pain) RF: 0 gabapentin 600 MG tablet 1,200 mg PO TID RF: 0 tramadol 50 MG tablet 50 - 100 mg PO Q6H PRN PRN (Reason: Pain) RF: 0 Primary Care Provider: Partha García Referrals: Partha García MD [Primary Care Provider] - Disposition Disposition: Home, Self Care Discharge Date/Time: 10/01/21 20:27
[2021-10-01 18:07] LABS: Anion Gap 8 (5-15); BUN 13 mg/dL (7-18); BUN/Creat Ratio 16.8 RATIO (10-20); Calcium,Total 8.8 mg/dL (8.5-10.1); Chloride 106 mmol/L (98-107); Creatinine, Serum 0.78 mg/dL (0.55-1.02); EST Glomerular Filtration Rate 82 mL/min (>60); Est Glom Filt Rate - Afr Amer 100 mL/min (>60); Estimated Creatinine Clearance 65.21 ml/min; Glucose 94 mg/dL (74-106); Potassium 3.7 mmol/L (3.5-5.1); Sodium Level 138 mmol/L (136-145); Troponin-I HS 5 pg/mL (3.0-54.0)
[2021-10-01 18:29] VITALS: BP 102/80; PULSE 96; RESP 18; O2SAT 96
[2021-10-01 19:01] LABS: D-Dimer Quantitative (DVT/PE) < 0.27 FEU/ug/m (0.27-0.49)
[2021-10-01 19:18] VITALS: BP 105/76; PULSE 89; RESP 15; O2SAT 95
[2021-10-01 20:09] LABS: Troponin-I HS 6 pg/mL (3.0-54.0)
[2021-10-01 20:21] VITALS: BP 117/78; PULSE 93; RESP 20; O2SAT 98
== END 2021-10-01 20:27 | disposition home or self-care (01) ==
PROVIDERS: Emergency Provider Student in an Organized Health Care Education/Training Program; PCP Family Medicine
DX: R07.89 Other chest pain (principal); R55 Syncope and collapse; E78.00 Pure hypercholesterolemia, unspecified; Z79.899 Other long term (current) drug therapy
CPT/HCPCS: 36415; 71045; 80048; 84484; 85025; 85379; 93005; 99285; A4216

== ENCOUNTER 2021-11-11 08:48 | Day surgery (SDC) | payer OTHER, SELFPAY ==
[2021-10-22 10:25] LABS: Absolute Lymphocyte Count 2.19 X10^3/uL (0.83-4.51); Absolute Neutrophil Count 5.4 X10^3/uL (2.0-7.7); Basophil# 0.06 X10^3/uL; Basophil% 0.7 % (0-1); Eosinophil# 0.15 X10^3/uL; Eosinophils% 1.8 % (0-5); Hematocrit 40.4 % (37-47); Hemoglobin 13.4 g/dL (12.0-15.0); Lymphocyte # 2.19 X10^3/ul (0.83-4.51); Lymphocyte % 26.7 % (19-41); Mean Corp Hgb Conc 33.2 g/dL (32-36); Mean Corpuscular Hgb 29.1 pg (27.0-32.0); Mean Corpuscular Volume 87.6 fL (81-99); Mean Platelet Vol. 9.7 fl (6.2-12.0); Monocyte# 0.38 X10^3/uL; Monocyte% 4.6 % (0-10); NRBC Flagged by Analyzer 0 % (0-5); Neutrophil # 5.39 X10^3/uL (2.7-7.7); Neutrophil % 65.7 % (47-70); Platelet Count 413 K/mm3 (150-450); RBC Distribution Width CV 12.1 % (11.6-14.6); RBC Distribution Width SD 38.9 fl (35.1-43.9); Red Blood Count 4.61 M/mm3 (4.2-5.4); White Blood Count 8.2 K/mm3 (4.4-11.0)
[2021-10-22 10:32] LABS: Prothrombin Time (Protime)PT. 12.8 SECONDS (11.7-14.9)
[2021-10-22 10:33] LABS: Partial Thromboplast Time 25.8 Seconds (24.1-36.2)
[2021-10-22 11:07] LABS: AST(SGOT) 22 U/L (15-37); Alanine Aminotransfer ALT/SGPT 30 U/L (13-56); Albumin, Serum 3.6 g/dL (3.2-5.0); Alkaline Phosphatase 103 U/L (45-117); Anion Gap 9 (5-15); BUN 12 mg/dL (7-18); BUN/Creat Ratio 15.1 RATIO (10-20); Bilirubin, Direct 0.09 mg/dL (0.00-0.30); Calcium,Total 9.5 mg/dL (8.5-10.1); Chloride 104 mmol/L (98-107); Cholesterol 248 mg/dL (200); EST Glomerular Filtration Rate 80 mL/min (>60); Est Glom Filt Rate - Afr Amer 96 mL/min (>60); Globulin 3.9 g/dL (2.2-4.2); Glucose 101 mg/dL (74-106); High Density Lipoprotein 37 mg/dL; Protein, Total 7.5 g/dL (6.4-8.2); Sodium Level 139 mmol/L (136-145); Triglycerides 256 mg/dL; Very Low Density Lipoprotein 51 mg/dL (5-40)
[2021-10-22 11:12] LABS: Internal QC Validated? YES +Cl - CLEAR BKGD; Pregnancy, Serum, hCG Quali. NEGATIVE Negative
[2021-11-10 10:26] VITALS: BMI 26.9
--- NOTE | 2021-11-10 17:16 | HP.PCM_ITS ---
History and Physical Date of Admission: 11/11/21 [facility] [id number] [place], [place] [id number] OFFICE VISITDate of Service: 10/20/21 MR#:[id number]: RAFAEL RICHTERRep #:[id number] Provider:Dr. Kai Diaz, REBAge/Sex: 56/F Location:[facility]:Signed HPI HPI History of Present Illness Surgical H&P: Yes Details: This is a 56-year-old white female who presents today for outpatient cardiovascular follow-up for history of underlying chest pain, right bundle branch block, and hyperlipidemia. Since her visit of approximately 1 year ago she states she has been at the [facility] emergency department for concerns of chest pain. There were concerns of sharp discomfort. She underwent noninvasive valuation which was considered negative. However, she states she has other discomforts in her chest which include a heaviness sensation on her chest associated with shortness of breath and dyspnea, occasionally nausea, and occasionally diaphoresis which will cause her to stop and rest and take deep breaths to alleviate. She has not had ongoing orthopnea, PND, or peripheral pitting edema. She states it is not clear with her previous event of sharp discomfort that she had syncope but she may have felt as if she was going to. She states to the best of her knowledge she has not had a clear- cut syncopal event. She did have a follow-up ECG in the office today. She was noted remain in sinus rhythm/sinus tachycardia with a left axis deviation and an incomplete right bundle branch block pattern. This appears to be similar to previous patterns. As you recall she did undergo noninvasive valuation in the late summer/early fall 2019. At that time as noted by her studies below she did not require further evaluation with diagnostic cardiac catheterization. She had a chest CT scan performed earlier this year for noncardiac reasons. She had no evidence of pulmonary emboli or thoracic aortic aneurysm or dissection. She did have a right apical pneumothorax and pneumomediastinum. She states it did take her a while to overcome this. Her most recent chest x-ray in the emergency [facility] did not suggest any obvious ongoing acute pulmonary issues. Intake Vital Signs 10/20/21 11:29 Height 5 ft 2 in Weight: 147 lb 6 oz BP 122/84 H Blood Pressure Location Lt brachial Position Sitting Respiration 18 Pulse 116 H Pulse Source Auscultation Intake Visit Reasons: 1 Y FU Administrative Office Assistant Required: No Accompanied by: Self Allergies NSAIDS (Non-Steroidal Anti-Inflamma Adverse Reaction (Verified 10/20/21 11:31) Nausea Medications cyclobenzaprine 5 mg PO 4X/DAY PRN 08/22/13 [History Confirmed 10/20/21] gabapentin 1,200 mg PO TID 04/17/14 [History Confirmed 10/20/21] tramadol 50 - 100 mg PO Q6H PRN PRN 07/01/16 [History Confirmed 10/20/21] atorvastatin 40 mg tablet 40 mg PO QHS 06/13/20 [History Confirmed 10/20/21] aspirin 81 mg tablet,delayed release 81 mg PO DAILY #1 tab 10/20/21 [Rx Confirmed 10/20/21] metoprolol tartrate 25 mg tablet 25 mg PO BID #60 tab 10/20/21 [Rx Confirmed 10/20/21] PFSH Medical History Anxiety and depression Back pain Back problem Cardiology follow-up encounter (~10/10/20) Diarrhea (~07/16/20) Gastroesophageal reflux disease GERD (gastroesophageal reflux disease) Hiatal hernia High cholesterol History of hiatal hernia History of IBS History of stress test (~07/16/20) Hyperlipidemia Injury of back Left anterior fascicular block (LAFB) Lumbar disc disease Narcolepsy Non-smoker Normal echocardiogram Positional vertigo Pyloric stenosis RBBB (right bundle branch block) Subcutaneous mass Ventral incisional hernia without obstruction or gangrene Wears glasses Surgical History History of appendectomy History of back surgery History of bilateral carpal tunnel release History of bladder repair surgery History of cholecystectomy History of colectomy History of colonoscopy (~2014) History of esophagogastroduodenoscopy (EGD) (~2014) History of hysterectomy with unilateral oophorectomy History of incisional hernia repair (~04/2021) History of repair of hiatal hernia (~01/2021) history of spinal stimulator Family History Mother Breast cancer Diabetes Hypertension Grandmother Myocardial infarction, Onset Age: 68 Social History Smoking Status: Never smoker alcohol intake: never substance use type: does not use caffeine: Yes Type: coffee Number of servings: 2 ROS Const Const: Positive for weakness (Bilat LE); Negative for fatigue, frequent falls, excessive sweating, weight gain or weight loss Eyes Eyes: Negative for transient loss of vision, blurry vision or change in vision ENT ENT: Positive for balance problems (slight); Negative for dizziness Cardio Chest Pain: Yes Character: sharp (Rare) and other (heaviness, radiates to jaw...weird feeling; back; can become SOB) Onset: at rest and exercise Location: mid sternal Duration: brief Relieving: rest and other (has used x1 dose nitro for ED visit) Palpitations: Yes (intermittent thruout the day) feels like its: fast Edema: None Muscle aches with walking: None Resp Respiratory: Positive for SOB with activity (increased over past year); Negative for SOB at rest GI GI: Negative vomiting or vomiting blood/hematemesis : Negative for hematuria Musc Musc: Positive for balance problems (slight); Negative for muscle aches/ myalgia, muscle weakness or joint pain Skin Skin: Negative non-healing lesions or rash Neuro Neuro: Positive for syncope (prior to ED visit in Nov), weakness (Bilat LE) and vertigo (HX); Negative for dizziness, lightheadedness, orthostatic symptoms, frequent falls or blurry vision Dirk Hematologic/Lymphatic: Negative for easy bleeding Endo Endo: Negative for fatigue or excessive sweating Psych Psych: Negative for anxiety or depression Allergy Allergy/Immunology: Negative for hives and Negative for rash Cardiology Exam Const Appearance: cooperative, healthy appearing, comfortable, no acute distress, well developed and well groomed Nutritional Appearance: overweight Orientation: alert, awake and oriented x3 Head Head: normal to inspection, normocephalic and atraumatic Ears: hearing grossly normal bilaterally Nose: external nose normal Face and Sinus: face symmetric Eyes Eyelids: eyelids normal Conjunctivae: conjunctivae normal Pupils: PERRL EOM: EOM intact bilaterally Neck Neck: normal visual inspection and full ROM Carotids: normal carotid upstroke Chest Chest inspection: normal inspection of the chest, symmetric chest movement and normal respiratory effort Auscultation: Bilateral: Clear to Auscultation Cardio Rate: tachycardic Rhythm: regular rhythm Heart sounds: S1 normal and S2 normal GI GI: normal to inspection, soft and bowel sounds present Neuro General: patient alert, patient awake, patient oriented x3, gait normal and moves all extremities Skin Skin: no rashes or lesions noted Extremities Pulses: Normal: Right Radial Pulse and Left Radial Pulse Lower Extremity Edema: None: Bilateral Psych Psychological: normal affect Supplemental Info Supplemental Information Echocardiogram from 07/16/2020: Interpretation Summary The study was technically difficult. Contrast injection was performed. Left ventricular systolic function is normal. The estimated ejection fraction is 65 %. Trivial mitral valve insufficiency. Trivial tricuspid valve insufficiency. Unable to estimate RV systolic pressure/pulmonary artery pressure due to technically difficult study. Transmitral doppler flow suggestive of impaired relaxation of left ventricle Bubble contrast study negative for right to left interatrial shunt. Stress Test Report Date: 07-16-2020 Procedure: Pharmacologic stress nuclear imaging study Indications: Chest pain; shortness of breath/dyspnea; preoperative cardiovascular evaluation Consent: Per the patient Procedure: The patient underwent pharmacologic (Regadenoson) evaluation with a peak heart rate of 113 beats per minute (67 %predicted maximal heart rate) and a peak blood pressure of 130/88 mmHg. The baseline ECG demonstrated normal sinus rhythm; right bundle branch block pattern. The peak pharmacologic ECG demonstrated no obvious ECG changes. There were no cardiac dysrhythmias pretest, during pharmacologic infusion, or recovery. There was no complaint of chest discomfort during pharmacologic infusion or recovery. The examination was discontinued secondary to completion of protocol. Impression: 1. Pharmacologic (Regadenoson) evaluation 2. Peak pharmacologic ECG with continued right bundle branch block pattern with no obvious ECG changes. 3. There were no cardiac dysrhythmias pretest, during pharmacologic infusion, or recovery. 4. Nuclear images pending Myocardial perfusion imaging study: Technique: The patient was injected with 11.7 millicuries of technetium 99m Cardiolite and subsequently rest SPECT Cardiolite nuclear imaging was obtained in the horizontal long, vertical long, and short axis views. The patient underwent pharmacologic (Regadenoson) evaluation with a peak heart rate of 113 beats per minute (67 % percent predicted maximal heart rate) and a peak blood pressure of 130/88 mmHg. The patient was injected with 33.6 millicuries of technetium 99m Cardiolite and subsequently stress SPECT Cardiolite nuclear imaging was obtained in the horizontal long, vertical long, and short axis views. A gated Cardiolite study at peak stress was obtained. Interpretation: Rest and stress SPECT Cardiolite nuclear imaging status post realignment, normalization, and attenuation correction demonstrate relative uniform tracer uptake and myocardial perfusion appearing within normal limits. There is end systolic thickening and brightening. The gated Cardiolite study demonstrates myocardial thickening and inward wall motion. The reported LVEF is 82 %. Impression: 1. Rest and stress SPECT Cardiolite nuclear imaging demonstrate relative uniform tracer uptake and myocardial perfusion appearing within normal limits. 2. The gated Cardiolite study reports an LVEF of 82 %. Labs: No Data to Display Diagnostics: Electrocardiogram Echocardiogram Stress Test NM Stress Test Chest X-Ray Pulmonary: No Data to Display Assessment and Plan Assessment and Plan (1) Angina pectoris: Status: Acute Orders: Orders: Left Heart Cath/COR/LV Percut Today Basic Metabolic Profile (BMP) Today Partial Thromboplast Time Today Prothrombin Time w/INR Today CBC W/Diff, Automated Today ,Serum,hCG Quali. Today Plan - Dr. Kai Diaz MD: She does have symptoms concerning for angina pectoris. The symptoms appear to be different from her symptoms of sharp discomfort which appear to be somewhat atypical. From a cardiac standpoint she has undergone extensive noninvasive valuation in the past. At the present time with no other explanation for her symptoms would be recommended her medications be altered and she be considered for further definitive cardiovascular evaluation for underlying CAD with a diagnostic cardiac catheterization. She will initiate additional medical therapy with metoprolol tartrate 25 mg p.o. twice daily in addition to her already taking aspirin 81 mg p.o. daily and her lipid-lowering therapy. The diagnostic cardiac catheterization procedure and risk were discussed with her. She was agreeable to this approach. (2) RBBB (right bundle branch block): Status: Chronic Orders: Orders: 12 Lead EKG performed by [facility] Today Left Heart Cath/COR/LV Percut Today Basic Metabolic Profile (BMP) Today Partial Thromboplast Time Today Prothrombin Time w/INR Today CBC W/Diff, Automated Today ,Serum,hCG Quali. Today Plan - Dr. Kai Diaz MD: She does have an abnormal ECG as noted. She will continue noninvasive and invasive valuation described above. (3) Hyperlipidemia: Status: Chronic Qualifiers: Hyperlipidemia type: unspecified Qualified Code(s): E78.5 - Hyperlipidemia, unspecified Orders: Orders: Left Heart Cath/COR/LV Percut Today Plan - Dr. Kai Diaz MD: She does not believe her lipid labs have been checked by her PCP this year. Thus she will be asked to have future lipid labs. (4) Chest pain: Status: Chronic Qualifiers: Chest pain type: precordial pain Qualified Code(s): R07.2 - Precordial pain Orders: Orders: 12 Lead EKG performed by [facility] Today Left Heart Cath/COR/LV Percut Today Plan Details Other Medications: New: aspirin 81 mg PO DAILY 1 TAB 0RF metoprolol tartrate 25 mg PO BID 60 tabs 1RF Other Orders: Orders: 12 Lead EKG performed by [facility] Today K21.9 Lipid Profile 1 Day E78.00 Liver Profile 1 Day E78.00 Additional Comments: Thank you for allowing me to participate in the care of your patient. Please don't hesitate to call if any issues arise. This note was generated using a voice recognition system and there may be incorrect words, spelling or punctuation that were not noted when reviewing the office note prior to saving. Follow Up: 6 Months (PFM ) COVID (Procedure Consent) Procedure Criteria Procedure Criteria: Yes Elective The surgeon/proceduralist and patient have discussed in detail the risk of exposure to and/or potential harm posed by the COVID-19 virus with having a surgery/procedure at this time versus the risk of delaying the surgery/procedure. It is not possible to know either the risk of delaying the surgery or procedure or chance of getting an infection with perfect accuracy, but a joint decision was made between the patient and the surgeon/proceduralist to proceed at this time with the scheduled surgery/procedure as indicated on the consent form. Coding Level of Care Code Off vis,est,level 5 Diagnoses Angina pectoris I20.9 RBBB (right bundle branch block) I45.10 Hyperlipidemia E78.5 Hyperlipidemia type: unspecified Chest pain R07.2 Chest pain type: precordial pain Coding Level of Care Code Off vis,est,level 5 Diagnoses Angina pectoris I20.9 RBBB (right bundle branch block) I45.10 Hyperlipidemia E78.5 Hyperlipidemia type: unspecified Chest pain R07.2 Chest pain type: precordial pain 10/20/21 1226<Electronically signed by Kai Diaz MD>Date Kai Diaz MD Cosigner Signature:Date (if applicable) CC: Dr. Partha García MD ~ Assessment & Plan Addt'l Comments I have re-examined the patient. There are no clinical changes since date of exam
--- NOTE | 2021-11-11 11:12 | CL.D_ITS ---
Patient Name: RAFAEL RICHTER Study Date: 11/11/2021 Performing: Kai Diaz MD Ht: 61.81 inches 157 cm : 1965 Wt: 147.71 lbs 67 kg Age: 56 Gender: female BSA: 1.68 PROCEDURE(S) PERFORMED DC01-(90274)LHC/COR/LV CLINICAL PROFILE AND INDICATIONS Indications: Worsening Angina, Suspected CAD Heart Failure: None Stress/Imaging Stress Test w/SPECT MPI: Yes Result: NegativeStress Test with SPECT MPI: Negative Angina Classification Anginal Classification w/in 2 Weeks: CCS III CAD Presentations: Other: worsening angina CONCLUSIONS Elevated Left Ventricular End Diastolic Pressure Normal LV size, wall motion,and systolic function LVEF: by LV gram 65 % Normal coronary arteries RECOMMENDATIONS Risk factor modification Medical therapy DESCRIPTION OF PROCEDURE The patient arrived to the procedure lab. The risks and benefits of the procedure as well as a full d escription of our services here and current unavailability of surgical backup were fully explained to the patient and/or their significant other prior to the catheterization. The Timeout was completed, verifying the correct patient and procedure. The patient's procedural site was prepped and draped in the usual fashion. Local anesthetic was given subcutaneously to right radial region with Lidocaine 2% . Using a modified Seldinger technique, arterial access was obtained via the right radial artery, a 6 Fr sheath was inserted. Right Coronary Artery selective angiography was then performed in multiple v iews using a 5 Fr. 4.0 Geneva catheter. Left Coronary Artery selective angiography was performed in mu ltiple views using a 5 Fr. 4.0 Geneva catheter. Left Ventriculography was performed in SAN projection using a 5 Fr. Pigtail catheter. LV to AO pullback pressures were then recorded.The arterial sheath was pulled and a TR Band was applied for hemostasis. Sheath flushed prior to removal. 10cc air inserted CORONARY ANGIOGRAPHY DOMINANCE: Right Dominant LEFT HEART ASSESSMENT Left Ventricular Ejection Fraction: by LV Gram 65 % Normal LV wall motion Elevated Left Ventricular End Diastolic Pressure LVEDP: 24 mmHg LEFT MAIN: Angiographically normal LEFT ANTERIOR DESCENDING ARTERY: Angiographically normal CIRCUMFLEX ARTERY: Angiographically normal RIGHT CORONARY ARTERY: Angiographically normal AORTIC ROOT: Angiographically normal COMPLICATIONS No Complications PROCEDURE MEDICATIONS Fentanyl 50 mcg IV Versed 1 mg IV Oxygen: 2 L/min via nasal cannula Heparin given IA 11/11/2021 10:28:46 Verapamil 2.5mg, Ntg 100mcgs, 3000 units of Heparin given IA 11/11/2021 10:28:46 SUMMARY OF HEMODYNAMIC DATA Time AIR REST ECG 09:08:07 AO 84/72 (77) SA 10:32:04 AO 94/71 (83) 10:32:42 LV 130/-11, 22 10:40:15 LV 131/-10, 24 10:40:21 LV 103/5, 14 10:41:05 LV 108/5, 12 10:41:11 LVp 107/4, 14 10:41:22 AOp 114/68 (91) 10:41:27 Signed By Kai Diaz MD On 11/11/2021 11:11:27 Kai Diaz MD
== END 2021-11-11 12:21 | disposition home or self-care (01) ==
LOC: CLSP 08:51
PROVIDERS: PCP Family Medicine; Referring Provider Internal Medicine Cardiovascular Disease; Visit Provider Internal Medicine Cardiovascular Disease
DX: I25.110 Atherosclerotic heart disease of native coronary artery with unstable angina pectoris (principal); R06.02 Shortness of breath; E78.00 Pure hypercholesterolemia, unspecified; Z79.82 Long term (current) use of aspirin; Z79.899 Other long term (current) drug therapy
CPT/HCPCS: 36415; 80048; 80061; 80076; 84703; 85025; 85610; 85730; 93458; 99152; 99153; J7040; C1769; C1894; Q9967

== ENCOUNTER → 2022-04-16 | Outpatient (CLI) | payer OTHER, SELFPAY ==
--- NOTE | 2022-04-16 10:00 | RAD_ITS ---
CLINICAL HISTORY: Female, 56 years old. Right shoulder pain. PROCEDURE: ARTHROGRAM - RIGHT SHOULDER CONSENT: The risks, benefits and alternatives to the procedure were explained to the patient, and the patient agreed to the procedure and signed the consent FLUOROSCOPY TIME (if supplied): 5 seconds. Injection Information: 10 cc of contrast mixture prepared by the pharmacy. Number of images obtained: 1 TECHNIQUE: (All elements of maximal sterile barrier technique followed, including US elements as applicable) A timeout was performed to confirm the patient''s identity, the type of procedure, to be performed and the site of entry. Appropriate location for needle placement was assessed using fluoroscopy. The skin surface was marked. The skin surface was then prepared with IODINE using the usual sterile technique. 5 cc of LIDOCAINE was injected for local anesthetic. A 22-gauge spinal needle was then advanced into the joint space using periodic fluoroscopic guidance. Needle placement was confirmed with fluoroscopy. Approximately 10 cc of the preprepared contrast mixture was injected into the joint with confirmation of intra-articular contrast using fluoroscopy. The needle was then withdrawn. The patient tolerated the procedure well with no complications. The patient was sent for CT arthrogram in stable condition. RAD/Arthrogram Shoulder IMPRESSION: Right shoulder arthrogram. Electronically Signed: Joon Landrum, at 10:56 EDT ,
[2022-04-16] MEDS: Lidocaine 2% (5ml sdv) 5 ML VIAL.MPF INFILT (10:10)
--- NOTE | 2022-04-16 10:25 | CT_ITS ---
STUDY: CT RIGHT SHOULDER WITH INJECTION REASON FOR EXAM: Female, 56 years old. History: PAIN IN RIGHT SHOULDER History: PAIN IN RIGHT SHOULDER RADIATION DOSAGE (If Supplied By Facility): CTDIvol = ( 24.58 ) mGy, DLP = ( 542.17 ) mGycm TECHNIQUE: The patient was scanned in a multi detector CT scanner. High resolution transaxial imaging was performed without the administration of intravenous contrast material. Sagittal and coronal images were reconstructed. Contrast: 20ML ISOVUE 300 Individualized dose optimization techniques were used for this CT. COMPARISON: None. FINDINGS: Normal glenohumeral articulation. Normal glenoid rim, neck and visualized scapula. Normal humeral head, neck and tuberosities. Normal coracoid process. Normal visualized lateral clavicle. There is mild osteoarthritis with articular joint space narrowing. Normal visualized muscles and soft tissue structures. CT/Extremity Upper WITH Contrast IMPRESSION: There are no acute findings. NO rotator cuff tear Electronically Signed: Carl Xie MD at 17:43 EDT ,
== END | disposition home or self-care (01) ==
LOC: RAD 09:23
PROVIDERS: PCP Family Medicine; Referring Provider Specialist; Visit Provider Specialist
DX: M25.511 Pain in right shoulder (principal)
CPT/HCPCS: 23350; 73040; 73201; A9575; Q9967

== ENCOUNTER → 2023-03-12 | Outpatient (CLI) | payer OTHER, SELFPAY ==
--- NOTE | 2023-03-12 11:52 | RAD_ITS ---
CLINICAL HISTORY: Female, 57 years old. Chronic right shoulder pain. PROCEDURE: ARTHROGRAM - RIGHT SHOULDER. CONSENT: The procedure as well as the benefits and possible complications including infection and bleeding were expanded to the patient. Informed consent was obtained. FLUOROSCOPY TIME (if supplied): (37 seconds) minutes/seconds. 5.19 mGy Injection Information: 10 cc of dilute MRI contrast. Number of images obtained: One TECHNIQUE: (All elements of maximal sterile barrier technique followed, including US elements as applicable) The patient was in the supine position. Overlying skin was prepped and draped in the usual sterile fashion. Following local anesthetic application and under direct fluoroscopic guidance, a 22-gauge spinal needle was placed into the shoulder joint. 2 cc of Isovue-300 was injected for confirmation. From this, 10 cc of dilute MRI contrast was injected. Patient tolerated procedure well. CT scan will follow. RAD/Arthrogram Shoulder IMPRESSION: Successful right shoulder arthrogram for CT examination. Patient tolerated procedure well. Electronically Signed: Donnie Hurtado MD at 13:32 EDT ,
[2023-03-12] MEDS: Gadoterate meglumine 2.5 MMOL 10 ML, Iopamidol 5 ML, Lidocaine 1% (20 ml mdv) 5 ML, Epi... INTRAARTIC (12:30)
[2023-03-12] MEDS: Iopamidol 10 ML in Syringe 1 EACH 600 ML INTRAARTIC (12:30)
[2023-03-12] MEDS: Lidocaine 2% (5ml sdv) 5 ML VIAL.MPF INFILT (12:30)
--- NOTE | 2023-03-12 12:42 | CT_ITS ---
STUDY: CT RIGHT SHOULDER REASON FOR EXAM: Female, 57 years old. Chronic shoulder pain. RADIATION DOSAGE (If Supplied By Facility): CTDIvol = ( 28.86 ) mGy, DLP = ( 672.58 ) mGycm TECHNIQUE: The patient was scanned in a multi detector CT scanner. High resolution transaxial imaging was performed with the administration of intra-articular contrast material. Sagittal and coronal images were reconstructed. Individualized dose optimization techniques were used for this CT. COMPARISON: Comparison is made with prior examination dated April 16, 2022. FINDINGS: Normal glenohumeral articulation. Normal glenoid rim, neck and visualized scapula. Normal humeral head, neck and tuberosities. Normal coracoid process. Normal visualized lateral clavicle. Normal acromioclavicular articulation. There is a Type II morphology (curved), with a neutral orientation. Normal visualized muscles and soft tissue structures. CT/Extremity Upper WITH Contrast IMPRESSION: No acute abnormality is seen. There has been no change since prior study. Electronically Signed: Donnie Hurtado MD at 12:59 EDT ,
== END | disposition home or self-care (01) ==
LOC: RAD 11:50
PROVIDERS: PCP Family Medicine; Referring Provider Student in an Organized Health Care Education/Training Program; Visit Provider Student in an Organized Health Care Education/Training Program
DX: S43.491A Other sprain of right shoulder joint, initial encounter (principal)
CPT/HCPCS: 23350; 73040; 73201; Q9967

== ENCOUNTER → 2023-04-22 | Outpatient (CLI) | payer OTHER, SELFPAY ==
[2023-04-22 11:30] LABS: Absolute Lymphocyte Count 2.28 X10^3/uL (0.83-4.51); Absolute Neutrophil Count 6.2 X10^3/uL (2.0-7.7); Basophil# 0.04 X10^3/uL; Basophil% 0.4 % (0-1); Eosinophil# 0.18 X10^3/uL; Hematocrit 40.6 % (37-47); Hemoglobin 13.1 g/dL (12.0-15.0); Lymphocyte # 2.28 X10^3/ul (0.83-4.51); Lymphocyte % 24.8 % (19-41); Mean Corp Hgb Conc 32.3 g/dL (32-36); Mean Corpuscular Volume 89.8 fL (81-99); Mean Platelet Vol. 9.4 fl (6.2-12.0); Monocyte# 0.49 X10^3/uL; Monocyte% 5.3 % (0-10); NRBC Flagged by Analyzer 0 % (0-5); Neutrophil # 6.19 X10^3/uL (2.7-7.7); Neutrophil % 67.2 % (47-70); Platelet Count 417 K/mm3 (150-450); RBC Distribution Width CV 11.9 % (11.6-14.6); RBC Distribution Width SD 38.7 fl (35.1-43.9); Red Blood Count 4.52 M/mm3 (4.2-5.4); White Blood Count 9.2 K/mm3 (4.4-11.0)
[2023-04-22 11:54] LABS: Anion Gap 7 (5-15); BUN 10 mg/dL (7-18); BUN/Creat Ratio 12.4 RATIO (10-20); Calcium,Total 9.7 mg/dL (8.5-10.1); Chloride 106 mmol/L (98-107); Creatinine, Serum 0.81 mg/dL (0.55-1.02); EST Glomerular Filtration Rate 78 mL/min (>60); Est Glom Filt Rate - Afr Amer 94 mL/min (>60); Glucose 131 mg/dL (74-106); Sodium Level 139 mmol/L (136-145)
== END | disposition home or self-care (01) ==
PROVIDERS: PCP Family Medicine; Referring Provider Physician Assistant Surgical; Visit Provider Physician Assistant Surgical
DX: Z01.810 Encounter for preprocedural cardiovascular examination (principal)
CPT/HCPCS: 36415; 80048; 85025; 93005

== ENCOUNTER 2023-09-06 20:34 | Emergency (ER) | payer OTHER, SELFPAY ==
[2023-09-06 20:35] VITALS: BP 171/111; PULSE 94; RESP 16; TEMP 36; O2SAT 98; BMI 26.9
--- NOTE | 2023-09-06 20:53 | CT_ITS ---
INDICATION: headache EXAMINATION: CT BRAIN - CT Head or Brain W/O Contrast Injection TECHNIQUE: Multiple axial images were obtained of the head without intravenous contrast. A radiation dose optimization technique was used for this scan. IV Contrast dosage and agent: None. COMPARISON: 09/09/2016 FINDINGS: BRAIN PARENCHYMA: No intra- or extra-axial hemorrhage. No evidence of acute infarct. No intracranial mass or mass effect. Posterior fossa structures are unremarkable. CSF SPACES: Stable. No hydrocephalus. Basal cisterns are patent. CALVARIUM, SKULL BASE, PARANASAL SINUSES AND MASTOID AIR CELLS: Clear. No discrete lytic or blastic abnormalities. CT/Brain/Head without Contrast IMPRESSION: No acute intracranial findings. Electronically Signed: Andrew Briggs MD at 22:05 EDT ,
--- NOTE | 2023-09-06 20:57 | EX.ED.DYSGE1 ---
HPI History of Present Illness Chief Complaint: Dizziness Informant: patient Narrative Narrative: Patient presents with vertigo nausea vomiting headache. Patient has a history of all the symptoms. She will get migraines. She gets them with vertigo. She states she was feeling well until she had some nerve root injections on her lower back last week. Those are not hurting. About the next day she started getting vertigo. She states when she vomits her head hurts. When she is not vomiting it does not hurt. She states meclizine helps but she does not have any. She has not had fevers or chills. Not sudden onset headache. The headache comes and goes with vomiting. Is not the worst she is ever had. She has had to come in and get meds for this in the past. She does have chronic pains but most of this is in her lower back. That is not her issue or her concern today though. There has been no trauma. [facility] Medical History Anxiety and depression Back pain Back problem Cardiology follow-up encounter (~10/10/20) Diarrhea (~07/16/20) Gastroesophageal reflux disease GERD (gastroesophageal reflux disease) Hiatal hernia High cholesterol History of hiatal hernia History of IBS History of left heart catheterization (LHC) (~11/11/21) History of stress test (~07/16/20) Hyperlipidemia Injury of back Left anterior fascicular block (LAFB) Lumbar disc disease Narcolepsy Non-smoker Normal echocardiogram Positional vertigo Pyloric stenosis RBBB (right bundle branch block) Subcutaneous mass Ventral incisional hernia without obstruction or gangrene Wears glasses Home Medications cyclobenzaprine 10 mg tablet 5 mg PO 4X/DAY PRN Pain 08/22/13 [History Last Taken 08/26/20] gabapentin 600 mg tablet 1,200 mg PO TID nerve pain 04/17/14 [History Last Taken 08/26/20] tramadol 50 mg tablet 50 - 100 mg PO Q6H PRN PRN Pain 07/01/16 [History Last Taken 08/26/20] atorvastatin 40 mg tablet (Lipitor) 40 mg PO QHS cholesterol 06/13/20 [History Last Taken 08/26/20] aspirin 81 mg tablet,delayed release 81 mg PO DAILY #1 TAB 10/20/21 [Rx Last Taken 11/11/21] metoprolol tartrate 25 mg tablet 25 mg PO BID #60 tabs 01/05/22 [Rx Last Taken Unknown] meclizine 25 mg tablet 25 mg PO 4X/DAY PRN PRN Dizziness #20 tabs 09/06/23 [Rx Last Taken Unknown] ondansetron 4 mg disintegrating tablet 4 mg PO Q8H PRN PRN Nausea #10 tabs 09/06/23 [Rx Last Taken Unknown] Allergy/AdvReac Type Severity Reaction Status Date / Time NSAIDS (Non-Steroidal AdvReac Nausea Verified 09/06/23 20:35 Anti-Inflamma Family History Mother Breast cancer Diabetes Hypertension Grandmother Myocardial infarction, Onset Age: 68 Surgical History History of appendectomy History of back surgery History of bilateral carpal tunnel release History of bladder repair surgery History of cholecystectomy History of colectomy History of colonoscopy (~2014) History of esophagogastroduodenoscopy (EGD) (~2014) History of hysterectomy with unilateral oophorectomy History of incisional hernia repair (~04/2021) History of repair of hiatal hernia (~01/2021) history of spinal stimulator Social History (Updated 09/06/23 @ 21:25 by Betty Holman) household members: family Smoking Status: Never smoker alcohol intake: never substance use type: does not use caffeine: Yes Type: coffee Number of servings: 2 ROS ROS ED ROS Narrative A complete review of systems was performed and is negative except as documented in the history of present illness. Some specific details below. Constitutional: No recent fevers or chills. No malaise. EYE: No visual complaints or pain. No visual field cut. ENT: No difficulty swallowing. No swelling. No pain. No GERD. No facial pain. No congestion. No change in hearing or ear pain. CV: No chest pain or palpitations. Respiratory: No dyspnea. No hemoptysis. No difficulty taking breaths. GI: Nausea and vomiting. But she denies abdominal pain. Sometimes she gets upper abdominal pain with this but she does not have it now. : No frequency dysuria or hematuria. Musculoskeletal: No recent trauma. No extremity or radicular pains. Skin: No rash. Nondiaphoretic. Neuro: No weakness or numbness. She does have headache as above when she vomits. Endocrine: No polyuria or polydipsia. EXAM Physical Exam Narrative Exam Narrative: CONSTITUTIONAL: Patient is nontoxic in appearance. The patient looks comfortable. Patient is actually standing up in the room. She is near the sink and holding an emesis bag. She has some dry heaves but no actual vomiting at this point. But she has vomited multiple times already. She has never seen blood. HEENT: No notable trauma. Mucous membranes mildly dry. No sinus tenderness. No indication of pain with swallowing. Neck: No meningismus. No JVD. EYES: No conjunctival injection. No proptosis. No photophobia. Pupils are about 3 mm and reactive. CARDIOVASCULAR: Regular rate. Regular rhythm. No notable murmur. No JVD. RESPIRATORY: No respiratory distress. Breathing is unlabored. No wheezes. No rhonchi. No rales. No pain with a deep breath. GASTROINTESTINAL: Not distended. Bowel sounds are normal. No tenderness. No guarding. No rebound. No palpable mass. No bruit. GENITOURINARY: No tenderness over the bladder. No CVA tenderness. MUSCULOSKELETAL: Atraumatic. No peripheral edema. No cord. No tenderness along the deep venous system. No asymmetry. NEUROLOGICAL: Patient is alert and appropriate. No focal deficit noted. No meningismus. SKIN: No noted rashes. No diaphoresis. PSYCHIATRIC: Patient is anxious likely due to her significant nausea and symptoms. Const Vital Signs: 09/06/23 20:35 Temperature 96.8 F L Temperature Source Temporal Pulse Rate 94 Respiratory Rate 16 Blood Pressure 171/111 H Blood Pressure Mean 131 Pulse Ox 98 MDM MDM MDM Narrative Medical decision making narrative: Patient CBC showed a high white count but she just got steroid injections. She has no fever. Hemoglobin is normal. Platelets are slightly high. She has run somewhat toward the higher end or high in the past. Patient's electrolytes show no marked abnormalities. Mild elevation in the BUN to creatinine ratio. She is given some IV fluids here. Patient's glucose is slightly up at 168. This may also be due to the steroid use. My independent interpretation of the patient's CT of the head without contrast shows no sign of acute bleeding or mass. Final reading is pending. Final reading comes back because now process. I rechecked the patient. She is sitting in bed now. She can move back and forth. She just got the meclizine recently. But she was already feeling less vertigo. She does not have a headache. The nausea is gone. She is feeling much better. With motion she has a little bit of vertigo but it is already markedly improved. She states she has done very well with meclizine. I will write her from meclizine. We will also write for Zofran which she preferred for nausea. Lab Data Attestation: I reviewed the patient's lab results. Labs: Laboratory Results - last 24 hr 09/06/23 21:21 WBC 17.6 H RBC 5.02 Hgb 14.5 Hct 44.7 MCV 89.0 MCH 28.9 MCHC 32.4 RDW Std Deviation 39.4 RDW Coeff of Barb 12.1 Plt Count 549 H MPV 9.9 Immature Gran % (Auto) 0.600 Neut % (Auto) 75.8 H Lymph % (Auto) 18.2 L Davison % (Auto) 4.7 Eos % (Auto) 0.3 Baso % (Auto) 0.4 Absolute Neuts (auto) 13.3 H Absolute Lymphs (auto) 3.20 Nucleated RBC % 0 Sodium 137 Potassium 3.6 Chloride 105 Carbon Dioxide 23.0 Anion Gap 9 BUN 21 H Creatinine 0.84 Estim Creat Clear Calc 59.15 Est GFR (MDRD) Af Amer 91 Est GFR (MDRD) Non-Af 75 BUN/Creatinine Ratio 25.1 H Glucose 168 H Calcium 10.3 H Radiography Diagnostic Testing: Clinical Impression(s) from Imaging Studies Brain CT 09/06/23 20:53 IMPRESSION: No acute intracranial findings. Electronically Signed: Andrew Briggs MD at 22:05 EDT , Discharge Plan Triage Chief Complaint: Dizziness Other Complaint: Headache ED Provider: Cj Cat Dx/Rx/DC Orders Clinical Impression: Headache, Vertigo, Nausea & vomiting Instructions: ED Vertigo, Unspecified Prescriptions: New meclizine [meclizine] 25 mg tablet 25 mg PO 4X/DAY PRN PRN (Reason: Dizziness) Qty: 20 0RF ondansetron [ondansetron] 4 mg tablet,disintegrating 4 mg PO Q8H PRN PRN (Reason: Nausea) Qty: 10 0RF No Action atorvastatin [Lipitor] 40 mg tablet 40 mg PO QHS aspirin 81 mg tablet,delayed release (DR/EC) 81 mg PO DAILY Qty: 1 0RF cyclobenzaprine 10 MG tablet 5 mg PO 4X/DAY PRN (Reason: Pain) Patient Comments: muscle spasm gabapentin 600 MG tablet 1,200 mg PO TID Patient Comments: pain tramadol 50 MG tablet 50 - 100 mg PO Q6H PRN PRN (Reason: Pain) Patient Comments: pain control metoprolol tartrate 25 mg tablet 25 mg PO BID Qty: 60 12RF Primary Care Provider: Partha García Referrals: Partha García MD [Primary Care Provider] - 3-5 Days if not improving Disposition Disposition: Home, Self Care
[2023-09-06] MEDS: 0.9% Normal Saline (1000mL) 1,000 ML 1000 ML IV (21:16)
[2023-09-06] MEDS: DiphenhydrAMINE 50 MG/ML Syringe IV (21:16)
[2023-09-06] MEDS: proCHLORPERazine 10 MG/2 ML Vial IV (21:16)
[2023-09-06] MEDS: Ondansetron 4 MG/2 ML Vial IV (21:18)
[2023-09-06 21:44] LABS: Absolute Neutrophil Count 13.3 X10^3/uL (2.0-7.7); Basophil# 0.07 X10^3/uL; Basophil% 0.4 % (0-1); Eosinophil# 0.05 X10^3/uL; Eosinophils% 0.3 % (0-5); Hematocrit 44.7 % (37-47); Hemoglobin 14.5 g/dL (12.0-15.0); Lymphocyte % 18.2 % (19-41); Mean Corp Hgb Conc 32.4 g/dL (32-36); Mean Corpuscular Hgb 28.9 pg (27.0-32.0); Mean Platelet Vol. 9.9 fl (6.2-12.0); Monocyte# 0.82 X10^3/uL; Monocyte% 4.7 % (0-10); NRBC Flagged by Analyzer 0 % (0-5); Neutrophil # 13.34 X10^3/uL (2.7-7.7); Neutrophil % 75.8 % (47-70); Platelet Count 549 K/mm3 (150-450); RBC Distribution Width CV 12.1 % (11.6-14.6); RBC Distribution Width SD 39.4 fl (35.1-43.9); Red Blood Count 5.02 M/mm3 (4.2-5.4); White Blood Count 17.6 K/mm3 (4.4-11.0)
[2023-09-06 21:59] LABS: Anion Gap 9 (5-15); BUN 21 mg/dL (7-18); BUN/Creat Ratio 25.1 RATIO (10-20); Calcium,Total 10.3 mg/dL (8.5-10.1); Chloride 105 mmol/L (98-107); Creatinine, Serum 0.84 mg/dL (0.55-1.02); EST Glomerular Filtration Rate 75 mL/min (>60); Est Glom Filt Rate - Afr Amer 91 mL/min (>60); Estimated Creatinine Clearance 59.15 ml/min; Glucose 168 mg/dL (74-106); Potassium 3.6 mmol/L (3.5-5.1); Sodium Level 137 mmol/L (136-145)
[2023-09-06] MEDS: Meclizine HCl 25 MG Tablet PO (22:11)
[2023-09-06 23:19] VITALS: RESP 16
== END 2023-09-06 23:25 | disposition home or self-care (01) ==
PROVIDERS: Emergency Provider Emergency Medicine; PCP Family Medicine; Visit Provider Emergency Medicine
DX: R51.9 Headache, unspecified (principal); R42 Dizziness and giddiness; R11.2 Nausea with vomiting, unspecified
CPT/HCPCS: 70450; 80048; 85025; 96361; 96374; 96375; 99283; J7030; A4216; J2405

== ENCOUNTER → 2023-11-19 | Outpatient (CLI) | payer OTHER, SELFPAY ==
--- NOTE | 2023-11-19 12:49 | CT_ITS ---
STUDY: CT ARTHROGRAM OF RIGHT SHOULDER REASON FOR EXAM: Female, 58 years old. Muscle strain. Pain. RADIATION DOSAGE (If Supplied By Facility): CTDIvol = ( 25.31 ) mGy, DLP = ( 482.15 ) mGycm TECHNIQUE: Contiguous axial images of the right shoulder were obtained after the intra-articular administration of 10 cc of Isovue-300 contrast. Coronal, sagittal and bone and soft tissue algorithm images were provided for interpretation. Individualized dose optimization techniques were used for this CT. COMPARISON: CT of the right shoulder without contrast dated March 12, 2023 FINDINGS: Adequate distention of the joint capsule with contrast. Minimal extravasation of contrast anteriorly with contrast in the subacromial-subdeltoid bursa. Intact supraspinatus and infraspinatus tendons. Intact subscapularis tendon with thinning. Mild thinning of the articular cartilage of the glenohumeral joint. Moderate AC joint hypertrophy with contrast within the AC joint. Normal visualized muscles and soft tissue structures. CT/Extremity Upper WITH Contrast IMPRESSION: Mild arthrosis of the glenohumeral joint and moderate arthrosis of the AC joint. Intact rotator cuff tendons. Contrast within the subacromial bursa and extending into the AC joint which is likely due to mild extravasation. Electronically Signed: Christiano Palafox MD at 13:50 EST ,
--- OUTSIDE RECORDS SUMMARY | 2023-11-19 13:09 | XMS RPT_ITS | CCD ---
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 Acquired hypertrophic pyloric stenosis Anxiety state, unspecified BPPV (benign paroxysmal positional vertigo) Depression Diarrhea Esophageal reflux Hyperlipidemia Lumbar disc disease Narcolepsy and cataplexy PAST SURGICAL HISTORY Procedure Laterality Date ANTERIOR COLPORRAPHY RPR CYSTOCELE W/CYSTO 1999; repair 2008 Cystocele repair APPENDECTOMY 1989 CHOLECYSTECTOMY 1994 COLONOSCOPY FLX DX W/COLLJ SPEC WHEN PFRMD 01/08/2009 Colonoscopy COLONOSCOPY FLX DX W/COLLJ SPEC WHEN PFRMD 02/08/2015 CT ABDANDPELV WITH CONTRAST 03/19/2021 03/19/[address] [facility] ED CT abd.pel IVC no evidence of ventral hernia, small hiatal hernia. EGD TRANSORAL BIOPSY SINGLE/MULTIPLE 02/08/2015 ESOPHAGOGAST FUNDOPLAST, JAD, BELSEY 01/22/2021 ESOPHAGOGASTRODUODENOSCOPY TRANSORAL DIAGNOSTIC 01/08/2009 EGD GASTRIC EMPTYING IMAG STUDY 06/22/2020 normal INCISE FINGER TENDON SHEATH Right 12/23/2018 Right thumb and right middle trigger finger releases and excision ganglion cysts INSJ NON-TUNNELED CENTRAL VENOUS CATH AGE 7 YR/> 10/17/2008 LAPAROSCOPIC HERNIA REPAIR 01/20/2021 Dr. Roddy Arellano, hiatal hernia LAPS COLECTOMY PRTL W/RMVL TERMINAL ILEUM 10/17/2008 NEUROPLASTY AND/TRANSPOS MEDIAN NRV CARPAL TUNNE Bilateral 2009 Carpal tunnel decomp PAST SURGICAL HISTORY OF 06/17/10 AND [id number] X 2 herniated disc surgery x 5 PAST SURGICAL HISTORY OF 07/2010 Partial hysterectomy , one ovary remains PAST SURGICAL HISTORY OF 2011 L5-S1 fusion PAST SURGICAL HISTORY OF 2012 implanted spinal cord stimulator, revised 2017 ALLERGIES Patient has no known allergies. MEDICATIONS Current Outpatient Medications Medication Sig cyclobenzaprine (FLEXERIL) 10 mg tablet Take 1 tablet by mouth three times daily as needed. traMADol (ULTRAM) 50 mg tablet Take 2 tablets by mouth every 8 hours as needed for pain for up to 90 days. TAKE 2 TABLETS BY MOUTH 3 TIMES A DAY NEEDED FOR PAIN atorvastatin (LIPITOR) 40 mg tablet Take 1 tablet by mouth daily at bedtime. cholecalciferol, Vitamin D3, (VITAMIN D3) 1,250 mcg (50,000 unit) cap capsule One by mouth once a week gabapentin (NEURONTIN) 600 mg tablet Take 2 tablets by mouth three times daily for 90 days. No current facility-administered medications for this visit. FAMILY HISTORY Problem Relation Age of Onset Diabetes Mother breast cancer Hypertension Mother Breast Cancer Mother No Known Problems Father Social History Tobacco Use Smoking status: Never Smokeless tobacco: Never Vaping Use Vaping Use: Never used Substance Use Topics Alcohol use: No Drug use: No EXAM: BP 132/78 Pulse 100 Resp 16 Ht 157.5 cm (5' 2 ) Wt 67.1 kg (148 lb) BMI 27.07 kg/m? PHYSICAL EXAM: General Appearance: Well appearing, alert, in no acute distress, well-hydrated, well nourished.. Skin: Skin color, texture, turgor normal, no suspicious rashes or lesions. Head: Normocephalic, no masses, lesions, tenderness or abnormalities. Eyes: Anicteric sclera. Extraocular movements are intact. . Extremities: No deformities, edema, skin discoloration, clubbing or cyanosis. Good capillary refill. Neurologic: Gait normal. Shoulder : Location: right anterior shoulder, deltoid area. Redness: no Warmth: no Tenderness to palpation: no Swelling: no Range of motion: Limited flexion and abduction to 100 degrees. Difficulty with internal/external rotation. Empty can test: no ASSESSMENT/PLAN: 1. Acute pain of right shoulder - ICD9: 719.41, ICD10: M25.511 Will get imaging. Will start prednisone. Follow-up pending results. - XR SHOULDER GENERAL 3V OR MORE AP/TRUE AP/OTHER RIGHT - XR HUMERUS 2V AP/LAT RIGHT - PREDNISONE 10 MG TABLET Shoulder exercises discussed. Continue ice. The prednisone taper will be 4 tablets for 3 days; 3 tablets for 3 days; 2 tablets for 3 days; then 1 tablet for 3 days. Please do no use other anti-inflammatories (like ibuprofen, aleve, naproxen, etc) while you are on this medication. Discussed treatment p (more content not included)... [facility] Progress note 01-06-2023 Note Date & Type Note Facility 01-06-2023 Note HNO ID: [id number] Author: RT Deonte(R) Service: Radiology Author Type: Technologist Type: Progress Notes Filed: 01/06/2023 1:13 PM Note Text: Radiology Service Progress Note PATIENT NAME: Bridgett Richter DATE OF SERVICE: January 06, 2023 TIME: 1:13 PM PATIENT IDENTITY VERIFICATION COMPLETED USING TWO (2) IDENTIFIERS: Name and Date of confirmed by patient verbally. FALL SCREENING: Has the patient had 2 falls in the last year or 1 fall with injury or currently using an Ambulatory Assistive Device (Walker, Cane, Wheelchair, Crutches, etc.)? No PATIENT GENDER DATA: Female. status: : No status: NO. PATIENT RELEVANT IMPLANT DATA REVIEWED: Yes RADIOLOGY DEPARTMENT: General X-ray: Exam(s) Completed: Lower Extremity X-Ray(s): Knee, AP / LAT Left and Wt. Bearing PERIPHERAL IV DATA: Not applicable SIGNED BY: RT Deonte(R) January 06, 2023 1:13 PM [facility] Summary Purpose Family History No Family History Records FoundNo Family History Records FoundNo Family History Records FoundNo Family History Records Found Advance Directives No Advanced Directives Records FoundNo Advanced Directives Records FoundNo Advanced Directives Records FoundNo Advanced Directives Records Found Additional Source Comments INFORMATION SOURCE (unrecogn ized section and content) DATE CREATED AUTHOR AUTHOR'S ORGANIZ ATION 01/10/2019 [facility] DATE CREATED AUTHOR AUTHOR'S ORGANIZ ATION 05/09/2022 [facility] ([place]) DATE CREATED AUTHOR AUTHOR'S ORGANIZ ATION 11/13/2023 [facility] FOR RECORDS PERTAINING TO PATIENTS WHO ARE OR HAVE BEEN ENROLLED IN A CHEMICAL DEPENDENCY/SUBSTANCEABUSE PROGRAM, SOME INFORMATION MAY BE OMITTED. This clinical summary was aggregated from multiple sources. Caution should be exercised in using it in the provision of clinical care. This summary normalizes information from multiple sources, and as a consequence, information in this document may materially change the coding, format and clinical context of patient data. In addition, data may be omitted in some cases. CLINICAL DECISIONS SHOULD BE BASED ON THE PRIMARY CLINICAL RECORDS. [employer] [facility] provides no warranty or guarantee of the accuracy or completeness of information in this document.
[2023-11-19] MEDS: Lidocaine 2% (5ml sdv) 5 ML VIAL.MPF INFILT (13:10)
[2023-11-19] MEDS: Iopamidol 10 ML in Syringe 1 EACH 600 ML INTRAARTIC (13:11)
[2023-11-19] MEDS: Gadoterate Meglumine Diluted 10 ML, Iopamidol 5 ML, Lidocaine 1% (20 ml mdv) 5 ML, Epin... INTRAARTIC (13:11)
--- NOTE | 2023-11-19 13:20 | RAD_ITS ---
EXAM: XR RIGHT SHOULDER COMPLETE, 2 OR MORE VIEWS CLINICAL INDICATION: POST ARTHROGRAM TECHNIQUE: Two or more views of the right shoulder. COMPARISON: No relevant prior studies available. FINDINGS: BONES/JOINTS: Extravasation of contrast outside the rotator cuff is nonvisualized. Degenerative findings of the AC joint. Subluxation of contrast to the AC joint is not seen. No acute fracture. No sclerotic or destructive changes observed. No evidence for rotator cuff tear. SOFT TISSUES: Unremarkable. No soft tissue swelling or gas. No radiopaque foreign body. RAD/Shoulder min 2 Views IMPRESSION: No evidence for rotator cuff tear. Electronically Signed: Carl Xie MD at 15:55 EST Reading Location ID and State: [facility] / [place] , Service support ,
--- NOTE | 2023-11-19 13:26 | PCM.OP.PRO ---
Procedure Report Date of Procedure: 11/19/23 Assessment & Plan Assessment/Plan (1) Right shoulder pain: QUALIFIERS: Chronicity: unspecified Qualified Code(s): M25.511 - Pain in right shoulder PLAN: PROCEDURE: Arthrogram-right shoulder ORDERING PROVIDER: Dr. Spence INDICATION: Female, 58 years old. Right shoulder pain. PROVIDER: Nallely Decker APRN-[facility] CONSENT: The procedure as well as the benefits and possible complications including bleeding and infection were explained to the patient. Informed consent was obtained. TECHNIQUE: The patient was positioned supine. The overlying skin was prepped and draped in the usual sterile fashion. Following injection of local anesthetic with 2% lidocaine and under direct fluoroscopic guidance, a 22-gauge spinal needle was placed into the right glenohumeral joint space. 2 cc of Isovue 300 was injected for confirmation. Following this, 10 cc of arthrogram contrast (gadoterate, iopamidol, lidocaine, and epinephrine), compounded by pharmacy, was injected. All elements of maximal sterile barrier technique followed. Patient tolerated procedure well. IMPRESSION: Successful fluoroscopic guided right shoulder arthrogram. Procedures Radiology Radiology Xray Procedures: [id number] Arthrogram Shoulder
== END | disposition home or self-care (01) ==
LOC: RAD 12:45
PROVIDERS: PCP Family Medicine; Referring Provider Student in an Organized Health Care Education/Training Program; Visit Provider Student in an Organized Health Care Education/Training Program
DX: S46.011D Strain of muscle(s) and tendon(s) of the rotator cuff of right shoulder, subsequent encounter (principal); S43.431D Superior glenoid labrum lesion of right shoulder, subsequent encounter; M75.21 Bicipital tendinitis, right shoulder
CPT/HCPCS: 23350; 73030; 73040; 73201; Q9967

== ENCOUNTER → 2024-02-16 | Outpatient (CLI) | payer OTHER, SELFPAY ==
--- NOTE | 2024-02-16 16:00 | CT_ITS ---
EXAM: CT LUMBAR SPINE WITHOUT INTRAVENOUS CONTRAST CLINICAL INDICATION: Postlaminectomy syndrome, not elsewhere classified TECHNIQUE: Helically acquired images were obtained of the lumbar spine without intravenous contrast. 2D reformats were reviewed. This CT exam was performed using one or more of the following dose reduction techniques: automated exposure control, adjustment of the mA and/or kV according to patient size, and/or use of iterative reconstruction technique. RADIATION DOSE: CTDIvol = 12.26 mGy, DLP = 331.73 mGy-cm. COMPARISON: September 09, [address] FINDINGS: VERTEBRAE: See below. DISCS/SPINAL CANAL/NEURAL FORAMINA: There is chronic fusion of L5-S1 disc space similar to 2016 with similar hypertrophic changes and fusion at the L5-S1 facet joints. There is a thick band of increased soft tissue density in the midline-left posterior paraspinous region overlying the expected region of the left L5 lamina but the appearance is very similar to 2016 suggesting scarring. No discrete drainable fluid collection is identified. No colby spinal stenosis. VASCULATURE: No aortic aneurysm or evidence of dissection. LYMPH NODES: Unremarkable. No retroperitoneal adenopathy. RETROPERITONEAL SPACE: Unremarkable as visualized. No prevertebral-retroperitoneal inflammatory changes. TUBES, LINES AND DEVICES: Implanted battery device is seen in the left buttock percutaneous patent with 2 leads extending into the posterior epidural space at T12-L1 and L1-L2 respectively, the distal tips are not fully included. CT/Spine Lumbar without Contrast IMPRESSION: Similar chronic postoperative changes and a stable thick band of increased soft tissue density suspected to be scarring at the postoperative level. No suspicious fluid collection or lumbar spinal stenosis. No visible bone destruction. Electronically Signed: Sahara Lott MD at 0:44 EDT ,
== END | disposition home or self-care (01) ==
LOC: CT 15:58
PROVIDERS: PCP Family Medicine; Referring Provider Anesthesiology Pain Medicine; Visit Provider Anesthesiology Pain Medicine
DX: M96.1 Postlaminectomy syndrome, not elsewhere classified (principal)
CPT/HCPCS: 72131